=== PATIENT | male | born 1950 | race Caucasian/White ===

== ENCOUNTER 2016-06-08 13:24 | Inpatient (IN) | payer BC, MEDICARE ==
[~2016-06-08] VITALS: Ht 170.2 cm; Wt 81.3 kg
[2016-06-08] MEDS ORDERED: methylPREDNISolone INJ 125 MG/2 ML VIAL (J2930) IV ONE (13:45)
[2016-06-08] MEDS ORDERED: PROA1AER INFIL (13:55)
[2016-06-08] MEDS ORDERED: SPIR1CAP INH (13:55)
[2016-06-08] MEDS ORDERED: ADV500INH INH (13:55)
[2016-06-08 14:02] LABS: BASO % 0.5 % (0.0-1.0); EOS # 0.3 K/mm3 (0.0-0.50); EOS % 3.4 % (0.0-3.0); LARGE UNSTAINED CELL # 0.2 K/mm3 (0.0-0.4); LARGE UNSTAINED CELL % 2.3 % (0.0-4.0); LYMPH # 1.2 K/mm3 (1.5-4.5); LYMPH % 9.9 % (24.0-44.0); MEAN CORPUSCULAR HEMOGLOBIN 29.3 pg (27.0-33.0); MEAN CORPUSCULAR HGB CONC 32.9 g/dl (32.0-36.5); MEAN CORPUSCULAR VOLUME 89.1 fl (80.0-96.0); MONO # 0.8 K/mm3 (0.0-0.8); MONO % 7.4 % (0.0-5.0); NEUTROPHILS # 7.7 K/mm3 (1.8-7.7); NEUTROPHILS % 76.6 % (36.0-66.0); PLATELET COUNT, AUTOMATED 216 k/mm3 (150-450); RED CELL DISTRIBUTION WIDTH 12.8 % (11.5-14.5)
[2016-06-08] MEDS: IPRATROPIUM 0.5MG/ALBUTEROL 2.5MG INH SOL UD 3ML (DUONEB)(J7620) NEB PRN ×4 (14:07→15:04)
--- NOTE | 2016-06-08 14:11 | REP ---
Clinical: Dyspnea and cough. Comparison: 07/05/2007. Findings: Advanced COPD and emphysematous changes are again noted. Diffuse increased and ill-defined opacities throughout the left hemithorax represents a change from prior examination and concerning for multifocal pneumonia. No obvious effusion. No pneumothorax. Mediastinum and cardiac silhouette normal. Skeletal structures intact. Impression: 1. Advanced chronic COPD and emphysematous changes. 2. Superimposed ill-defined opacities involving the left hemithorax concerning for acute multifocal pneumonia. Correlation and follow-up is recommended to exclude the possibility of neoplasm. Signed by Edwar Rojas MD 06/08/2016 02:02 P
[2016-06-08 14:24] LABS: ANION GAP 7 MEQ/L (8-16); BLOOD UREA NITROGEN 14 MG/DL (7-18); CALCIUM LEVEL 9.2 MG/DL (8.8-10.2); CARBON DIOXIDE LEVEL 29 MEQ/L (21-32); CHLORIDE LEVEL 104 MEQ/L (98-107); CREATININE FOR GFR 0.93 MG/DL (0.70-1.30); GLOMERULAR FILTRATION RATE > 60.0 (>49); GLUCOSE, FASTING 114 MG/DL (80-110); POTASSIUM SERUM 3.7 MEQ/L (3.5-5.1); SODIUM LEVEL 140 MEQ/L (136-145)
[2016-06-08 14:34] LABS: ABG BASE EXCESS 2.4 (-2.0-2.0); ABG HCO3 23.7 MEQ/L (22.0-26.0); ABG PARTIAL PRESSURE CO2 27.7 mmHg (35.0-45.0); ABG STANDARD HCO3 26.6 MEQ/L (22.0-26.0); ABG TOTAL CO2 24.5 MEQ/L (23.0-31.0)
[2016-06-08] MEDS ORDERED: cefTRIAXone SOD 1 GM in D5W MINI-BAG PLUS 50 ML IV ONE (16:00)
[2016-06-08] MEDS ORDERED: AZITHROMYCIN INJ 500 MG, VIAL MATE ADAPTER 1 EACH in D5W 250 ML IV ONE (16:00)
--- NOTE | 2016-06-08 16:28 | REP ---
Clinical: Cough and dyspnea. Comparison: None. Findings: Advanced COPD and emphysematous changes with bronchiectasis is appreciated. Ill-defined areas of superimposed consolidation involving the left upper lobe suspected and correlation is recommended. Mediastinum demonstrates atherosclerotic changes to the thoracic aorta and coronary arteries without thoracic aortic aneurysm or cardiomegaly. Small hiatal hernia noted at the gastroesophageal junction. No obvious significant adenopathy. Surrounding musculoskeletal structures intact. Impression: Advanced COPD and emphysematous changes with superimposed left upper lobe infiltrate suggested. Correlation and follow up recommended. Signed by Edwar Rojas MD 06/08/2016 04:19 P
[2016-06-08] MEDS ORDERED: ACETAMINOPHEN TAB 650MG DOSE (2X325MG) PO PRN (18:30)
[2016-06-08] MEDS ORDERED: ALBUTEROL 90 MCG/ACT 8GM HFA INHALER INH PRN (18:45)
--- NOTE | 2016-06-08 19:33 | HPEPDOC ---
General Date of Admission Jun 08, 2016 at 16:17 Primary Care Physician: Jr Moore Collins Attending Physician: JEFFY TYSON MD Chief Complaint The patient is a 65-year-old male admitted with a reason for visit of CAP. Source: Patient Exam Limitations: No limitations Timing/Duration: Day(s) (5) Severity: Severe Associated Symptoms: Chest Pain, Cough, Shortness of breath History of Present Illness PRIMARY CARE PROVIDER: Dr. Greg Tinsley Credit Specialist that he follows with CHIEF COMPLAINT: shortness of breath HISTORY OF PRESENT ILLNESS: 65 yo M with a PMH of COPD on 2 L O2 24 hours, asthma, tobacco use disorder--quit smoking 1999, pneumothorax, hx of pneumonia, fracture of leg as child, diverticulosis, hemorrhoids, presents with a 5 day hx of progressively worsening that began on Monday. States he slept all day Monday. Monday, he stayed home because he felt really tired and couldn't catch his breath. On Monday, he checked his pulse with a device he has at home, and his pulse was high at 108. States he tried his home medications: continued O2 at home for 24 hours, advair diskus BID, spiriva capsule once daily, and an albuterol inhaler, but his SOB did not get any better, and in fact, it had gotten worse. In addition, on Monday, patient reports developing substernal 4-5/10 in severity with a dull ache/pressure like chest discomfort/pain/tightness which radiates to underneath his L side of his ribs to the L side of his back underneath the L scapula. States like it is an elephant "sitting on his chest." Denies any L sided arm pain, jaw pain, diaphoresis, dizziness. States he had stayed home Monday, took an advil, and went to bed. He denies fevers, chills, nausea, vomiting, diarrhea, constipation, abdominal pain, sore throat, runny nose, and sputum production. Admits to a chronic cough which has not gotten any worse than normal. Admits to PND, orthopnea, and SOB with general exertion. Sleeps with 2 pillows night. Admits to feeling cold all the time. States, due to the above symptoms, he has come in to the [facility] ED for further evaluation and treatment. In the [facility] ED, a workup was done which showed that the patient was tachypneic with a RR 24, pulse ox of 93% on 2 L NC, H&H was 13 and 39.6, glucose 114, CK- MB 6.11 (high), lactic acid 1.1 and WNL, troponin I was <0.02, TSH was 0.936 and WNL, and ABG showed pH 7.550/pCO2 27.7/p02 of 184 being consistent with respiratory alkalosis. Influenza A and B rapid antigen were negative. CXR whowed advanced chronic COPD and emphysematous changes, superimposed ill- defined opacities involving the L hemithorax concerning for acute multifocal pneumonia, no obvious effusion, and no pneumothorax. Chest CT without contrast showed advanced COPD and emphysematous changes with bronchiectasis is appreciated with superimposed QUAN infiltrate suggested. EKG showed sinus rhythm with ST depression in the lateral leads, Rate: 96, GA int: 165, QRS duration: 101, QTc: 397. Patient was administered 1 dose rocephin 1 gm IV, azithromycin 500 mg IV, solumedrol 125 mg, and 3 doses of duonebs q20 minutes PRN SOB. Patient reported some improvement but is still very SOB and gasping for air. Blood cx have been sent and are pending. ALLERGIES: NKDA HOME MEDICATIONS: Continuous O2 machine at home: 24 hours on 2 liters Advair Diskus BID (AM+PM) Spiriva: 1 capsule once a day Albuterol Inhaler PRN SOB/wheezing. PAST MEDICAL HISTORY: COPD on 2 L oxygen for 24 hours Hx of Pneumonia Asthma Tobacco Use Disorder previously--quit smoking 1999 Pneumothorax Fracture of leg as child Diverticulosis Hemorrhoids PAST SURGICAL HISTORY: Polypectomy 03/23 Colonoscopy March 2003 with diverticulosis, hemorroids, and polyps removed, pathology report: tubular adenomas. Upper GI Endoscopy SOCIAL HISTORY: Quit smoking 1999. Smoked 2 PPD x 40 years. 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 Healthcare Proxy: Loyda Rodriguez FAMILY HISTORY: Father: of CVA Mother: of bladder cancer, had Diabetes Siblings: 2 brothers, 1 , youngest brother: Pneumonia Younger brother: Diabetes 4 sisters: 2 , youngest sister from "some cancer", lost 1 sister to Bladder Cancer, other 2 sisters are healthy CODE STATUS: DNR/DNI REVIEW OF SYSTEMS: All ROS were negative except for that which is noted in the HPI above. PHYSICAL EXAMINATION: Initial ED Vitals: T:99.2 BP:148/82 (104) RR:24 P:97, O2 Saturation: 93% on 2L NC General: Pleasant elderly male lying in bed. +Acute respiratory distress, gasping for air. Speaks in full sentences. HEENT: Head: normocephalic, atraumatic. Eyes: Sclera are nonicteric. Nose: No external lesions, Lips intact. Neck: +use of accessory muscles, intercostal muscles, no thyromegaly Respiratory: +respiratory distress with use of accessory muscles, +tachypneic. Lungs clear to auscultation but diminished breath sounds bilaterally with no wheezes, rales, or rhonchi. Cardiovascular: regular rate and rhythm, with no murmurs, rubs or gallops Abdomen: soft, nontender, nondistended, no hepatosplenomegaly appreciated. Bowel sounds present. Extremities: no swelling in either lower extremity bilaterally Neurological: no focal neurologic deficits appreciated bilaterally Lymphatics: no cervical LAD bilaterally. Integumentary: skin free from rashes, lesions, abrasions Vascular: +2 pulses palpable and symmetrical in upper and lower extremities bilaterally LABORATORY DATA: Please see below. MICROBOIOLOGY: Please see below. ELECTROCARDIOGRAM: Please see in HPI. RADIOLOGY: Please see in HPI. ASSESSMENT: 65 yo M with PMH significant for COPD on continuous 24 hour 2L oxygen , asthma, hx of pneumonia, pneumothorax is presenting for progressively worsening SOB. Imaging consistent with QUAN infiltrate and probable community acquired pneumonia. Admitted for acute hypoxic respiratory failure, respiratory alkalosis, acute on chronic COPD exacerbation secondary to CAP. PLAN: Chronic Hypoxic Respiratory Failure/Respiratory Alkalosis/Acute on Chronic COPD Exacerbation secondary to Community Acquired Pneumonia: Will start azithromycin , rocephin, solumedrol 80 mg q6h, duonebs q4h, proventil q2 PRN SOB/wheezing. Will follow up blood cx and sputum cx when back. Follow up respiratory panel when available. Keep on continuous pulse oximetry. Monitor daily CBCs and BMPs. Substernal/Midsternal Chest Pain: Will admit to PCU. Will continue to cycle troponins q8h and repeat EKG tomorrow AM. Monitor Mg levels daily. COPD on 2 L oxygen for 24 hours: continue spiriva and advair diskus Hx of Pneumonia: has recent QUAN infiltrate on CT scan. Will treat with rocephin and azithromycin. Follow up when blood cx, sputum cx, and respiratory panel available. Asthma: continue home medications Tobacco Use Disorder previously--quit smoking 1999: no further intervention at this time. Pneumothorax: will continue to keep an eye on patient's respiratory status and will obtain CXRs to reevaluate when can. Fracture of leg as child: no symptoms reported today. Diverticulosis: will encourage oral hydration and will follow daily I's/O's and frequency of BMs. Hemorrhoids: will add stool softeners if necessary and encourage plenty of oral hydration. Continue home medications for other past medical problems. DVT ppx: Lovenox 40 mg sc Diet: COPD CODE STATUS: DNR/DNI Immunizations as per protocol. My preceptor for this patient encounter was Dr. Jeffy Tyson, and was physically present in the building during the encounter and was fully available. As needed, all aspects of the patient interview, examination, medical decision making process, and medical care plan development were reviewed and approved by the preceptor. Preceptor is aware and concurs with the plan as stated in the body of this note and will attest to such by his/her cosignature. Home Medications Scheduled Salmeterol/Fluticasone (Advair Diskus 500-50 Mcg/Dose) 28 Puff/Inhaler Aerp 1 PUFF INH BID (Reported) Tiotropium [place] Monohydrate (Spiriva Handihaler) 18 Mcg Cap 18 MCG INH DAILY (Reported) Scheduled PRN Albuterol Sulfate (Proair Hfa) 108 Mcg/Act Aer 2 PUFF INFIL Q4H PRN PRN SHORTNESS OF BREATH (Reported) Allergies Coded Allergies: No Known Drug Allergy (Verified Allergy, Unknown, 06/21/12) Vital Signs Please see above. Laboratory Data Labs 24H Laboratory Tests 2 06/08/16 13:45: Anion Gap 7L, White Blood Count 10.0, Red Blood Count 4.45, Hemoglobin 13.0L, Hematocrit 39.6L, Mean Corpuscular Volume 89.1, Mean Corpuscular Hemoglobin 29.3 , Mean Corpuscular Hemoglobin Concent 32.9, Red Cell Distribution Width 12.8, Platelet Count 216, Neutrophils (%) (Auto) 76.6H, Lymphocytes (%) (Auto) 9.9L, Monocytes (%) (Auto) 7.4H, Eosinophils (%) (Auto) 3.4H, Basophils (%) (Auto) 0.5 , Neutrophils # (Auto) 7.7, Lymphocytes # (Auto) 1.2L, Monocytes # (Auto) 0.8, Eosinophils # (Auto) 0.3, Basophils # (Auto) 0.0, Blood Urea Nitrogen 14, Creatinine 0.93, Sodium Level 140, Potassium Level 3.7, Chloride Level 104, Carbon Dioxide Level 29, Calcium Level 9.2, Total Creatine Kinase 36L, Creatine Kinase MB 2.2, Creatine Kinase MB Relative Index 6.11H, Glomerular Filtration Rate > 60.0, Lactic Acid Level 1.1, Large Unclassified Cells # 0.2, Large Unclassified Cells % 2.3, Thyroid Stimulating Hormone (TSH) 0.936, Troponin I < 0.02 06/08/16 14:00: Arterial Blood pH 7.550H, Arterial Blood Partial Pressure CO2 27.7L, Arterial Blood Partial Pressure O2 184.0H, Arterial Blood Total CO2 24.5, Arterial Blood HCO3 23.7, Arterial Blood Base Excess 2.4H, Arterial Blood Oxygen Saturation 99.6H, Arterial Blood Gas Liter Flow 2, Arterial Blood Gas Puncture Site LT RADIAL, Blood Gas Bicarbonate Standard 26.6H CBC/BMP Laboratory Tests 06/08/16 13:45 Calcium Level 9.2, Total Creatine Kinase 36 L, Red Blood Count 4.45, Mean Corpuscular Volume 89.1, Mean Corpuscular Hemoglobin 29.3, Mean Corpuscular Hemoglobin Concent 32.9, Red Cell Distribution Width 12.8, Neutrophils (%) (Auto ) 76.6 H, Lymphocytes (%) (Auto) 9.9 L, Monocytes (%) (Auto) 7.4 H, Eosinophils (%) (Auto) 3.4 H, Basophils (%) (Auto) 0.5, Neutrophils # (Auto) 7.7, Lymphocytes # (Auto) 1.2 L, Monocytes # (Auto) 0.8, Eosinophils # (Auto) 0.3, Basophils # (Auto) 0.0 Microbiology Microbiology 06/08/16 Blood Culture, Received Pending 06/08/16 Blood Culture, Received Pending 06/08/16 Influenza Virus Type A Antigen - Final, Complete 06/08/16 Influenza Virus Type B Antigen - Final, Complete Plan / VTE VTE Prophylaxis Ordered?: Yes (lovenox) Plan IVF: Initiate JEFFY JACKSON-1 Jun 08, 2016 19:33
[2016-06-08] MEDS: IPRATROPIUM 0.5MG/ALBUTEROL 2.5MG INH SOL UD 3ML (DUONEB)(J7620) NEB SCH ×2 (20:16→23:38)
[2016-06-08] MEDS: ADVAIR DISKUS 500/50 INH PWD INH SCH (20:44)
[2016-06-08] MEDS: methylPREDNISolone INJ 125 MG/2 ML VIAL (J2930) IV SCH (20:50)
[2016-06-09] VITALS: BP 118/57
[2016-06-09] MEDS: methylPREDNISolone INJ 125 MG/2 ML VIAL (J2930) IV SCH ×4 (02:12→19:43)
[2016-06-09] MEDS: IPRATROPIUM 0.5MG/ALBUTEROL 2.5MG INH SOL UD 3ML (DUONEB)(J7620) NEB SCH ×5 (03:19→20:00)
[2016-06-09 04:00] VITALS: BP 113/56
[2016-06-09] MEDS: cefTRIAXone SOD 1 GM in D5W MINI-BAG PLUS 50 ML IV SCH ×2 (04:01→16:29)
[2016-06-09] MEDS: ADVAIR DISKUS 500/50 INH PWD INH SCH ×2 (07:52→20:27)
[2016-06-09 08:00] VITALS: BP 128/71
[2016-06-09] MEDS ORDERED: TIOTROPIUM INHALER/CAPSULE (SPIRIVA) INH SCH (08:00)
[2016-06-09] MEDS: ENOXAPARIN 40 MG/0.4 ML SYRINGE (J1650) SC SCH (08:52)
[2016-06-09] MEDS ORDERED: AZITHROMYCIN INJ 500 MG, VIAL MATE ADAPTER 1 EACH in D5W 250 ML IV SCH ×2 (09:00→17:00)
[2016-06-09 09:01] LABS: ANION GAP 10 MEQ/L (8-16); BLOOD UREA NITROGEN 16 MG/DL (7-18); CARBON DIOXIDE LEVEL 24 MEQ/L (21-32); CHLORIDE LEVEL 104 MEQ/L (98-107); CREATININE FOR GFR 1.18 MG/DL (0.70-1.30); GLOMERULAR FILTRATION RATE > 60.0 (>49); GLUCOSE, FASTING 168 MG/DL (80-110); MAGNESIUM LEVEL 2.3 MG/DL (1.8-2.4); SODIUM LEVEL 138 MEQ/L (136-145)
[2016-06-09 09:43] LABS: BASO % 0.1 % (0.0-1.0); EOS # 0.1 K/mm3 (0.0-0.50); EOS % 1.1 % (0.0-3.0); LARGE UNSTAINED CELL # 0.1 K/mm3 (0.0-0.4); LARGE UNSTAINED CELL % 0.4 % (0.0-4.0); LYMPH # 0.6 K/mm3 (1.5-4.5); LYMPH % 4.6 % (24.0-44.0); MEAN CORPUSCULAR HEMOGLOBIN 29.5 pg (27.0-33.0); MEAN CORPUSCULAR HGB CONC 33.9 g/dl (32.0-36.5); MEAN CORPUSCULAR VOLUME 87.1 fl (80.0-96.0); MONO # 0.2 K/mm3 (0.0-0.8); MONO % 1.9 % (0.0-5.0); NEUTROPHILS # 11.3 K/mm3 (1.8-7.7); NEUTROPHILS % 91.8 % (36.0-66.0); PLATELET COUNT, AUTOMATED 245 k/mm3 (150-450); RED CELL DISTRIBUTION WIDTH 12.5 % (11.5-14.5); WHITE BLOOD COUNT 12.3 K/mm3 (4.0-10.0)
--- NOTE | 2016-06-09 10:29 | IPNPDOC ---
Subjective Date Seen The patient was seen on 06/09/16. Subjective Chief Complaint/HPI 65 yo M seen and examined at bedside. Still having same amount of SOB but is a bit improved from prior. Admits to a worsening cough with sputum production now. Otherwise, no other reported issues. Events since last encounter Patient admits that he slept okay overnight except for the interruptions as per staff for lab draws and medications. No other acute events reported overnight. General: Reports: Fatigue, Denies: Chills, Night Sweats Constitutional: Reports: Fatigue, Weakness, Denies: Chills, Fever ENT: Denies: Head Aches, Sore Throat Pulmonary: Reports: Cough (worsening cough productive of sputum), Dyspnea, Other Symptoms (+SOB on exertion) Cardiovascular: Reports: Orthopnea, Denies: Chest Pain, Edema, Palpitations Gastrointestinal: Denies: Abdominal Pain, Constipation, Diarrhea, Hematochezia , Nausea, Vomiting Genitourinary: Denies: Dysuria, Frequency, Hematuria Endocrine: Reports: Cold Intolerance Neurological: Reports: Weakness Psych: Reports: Mood Normal (just seems fatigued) Objective Physical Examination General Exam: Positive: Alert, Cooperative, Moderate Distress Eye Exam: Positive: Conjunctiva & lids normal (sclera nonicteric) ENT Exam: Positive: Atraumatic Neck Exam: Positive: Supple, Negative: JVD, Lymphadenopathy, thyromegaly Chest Exam: Positive: Clear to auscultation, Diminished, Other (decreased air entry throughout all lung coello), Negative: Wheezing Heart Exam: Positive: Normal S1, Normal S2, Rate Normal, Regular Rhythm, Negative: Murmurs Abdomen Exam: Positive: Normal bowel sounds, Soft, Negative: Hepatospenomegaly, Mass, Tenderness Extremity Exam: Positive: Normal pulses, Negative: Clubbing, Cyanosis, Edema, Tenderness Skin Exam: Positive: Nl turgor and temperature, Negative: Breakdown, Lesion, Rash Neuro Exam: Positive: Normal Speech, Normal Tone Psych Exam: Positive: Memory Intact, Mental status NL, Mood NL, Oriented x 3 Assessment /Plan Assessment Chronic Hypoxic Respiratory Failure/Respiratory Alkalosis/Acute on Chronic COPD Exacerbation secondary to Community Acquired Pneumonia: Will start azithromycin , rocephin, solumedrol 80 mg q6h, duonebs q4h, proventil q2 PRN SOB/wheezing. Will follow up blood cx and sputum cx when back. Follow up respiratory panel when available. Keep on continuous pulse oximetry. Monitor daily CBCs and BMPs. Problems (1) Acute chronic obstructive pulmonary disease with respiratory distress Status: Acute Response to Treatment: Controlled Discussed With: Patient Problem Specific Plan: Monitor Clinically, Repeat Labs, Repeat Tests Problem Text: Continue azithromycin, rocephin, solumedrol 80 mg q6h, duonebs q4h, proventil q2 PRN SOB/wheezing. Titrate to O2 sats between 90-92%. Will follow up blood cx and sputum cx when back. Follow up respiratory panel when available. Keep on continuous pulse oximetry. Monitor daily CBCs and BMPs. Have added incentive spirometry and encourage aggressive pulmonary toilet. Will add acapella. (2) Chest pain Status: Resolved Discussed With: Patient Problem Specific Plan: Monitor Clinically, Repeat Labs Problem Text: Have admitted to telemetry on PCU. Will continue to cycle troponins q8h and repeat EKG today. Monitor Mg levels daily. (3) COPD (chronic obstructive pulmonary disease) Status: Acute Response to Treatment: Progressing Discussed With: Patient Problem Specific Plan: Monitor Clinically, Repeat Labs Problem Text: COPD on 2 L oxygen for 24 hours: continue advair diskus. Have held spiriva for now. (4) Asthma Status: Chronic Response to Treatment: Controlled Problem Specific Plan: Monitor Clinically Problem Text: Continue home medications (5) History of pneumonia, recurrent Status: Acute Response to Treatment: Progressing Discussed With: Patient Problem Specific Plan: Monitor Clinically, Repeat Labs Problem Text: Has recent QUAN infiltrate on CT scan. Will treat with rocephin and azithromycin. Follow up when blood cx, sputum cx, and respiratory panel available. (6) Diverticulosis Status: Chronic Response to Treatment: Stable Discussed With: Patient Problem Specific Plan: Monitor Clinically Problem Text: Will encourage oral hydration and will follow daily I's/O's and frequency of BMs. (7) Hemorrhoids Status: Acute Response to Treatment: Stable Discussed With: Patient Problem Specific Plan: Monitor Clinically Problem Text: Will add stool softeners if necessary and encourage plenty of oral hydration. Plan/VTE VTE Prophylaxis Ordered?: Yes (lovenox 40 mg sc daily) Plan IVF: Initiate Diet: Continue Current (COPD diet) Activity: Continue Current Therapy: PT Medications: Other Med: (Continue current medications) Respiratory: Other Respiratory Diagnostics: Check Labs, Obtain Cultures, Repeat EKG (continue 2 Liters home dose) Anticipated Discharge: Home Disposition Home after patient improves and is stable. Continue home medications for other past medical problems. DVT ppx: Lovenox 40 mg sc Diet: COPD CODE STATUS: DNR/DNI Immunizations as per protocol. VS, I&O, 24H, Fishbone Vital Signs/I&O Vital Signs Date Time Temp Pulse Resp B/P Pulse Ox O2 Delivery O2 Flow Rate FiO2 06/09/16 08:00 97.4 85 20 128/71 96 Nasal Cannula 2.0 06/08/16 20:20 97 I&O- Last 24 Hours up to 6 AM 06/09/16 05:59 Intake Total 300 ml Balance 300 ml Laboratory Data 24H LABS Laboratory Tests 2 06/08/16 13:45: Anion Gap 7L, White Blood Count 10.0, Red Blood Count 4.45, Hemoglobin 13.0L, Hematocrit 39.6L, Mean Corpuscular Volume 89.1, Mean Corpuscular Hemoglobin 29.3 , Mean Corpuscular Hemoglobin Concent 32.9, Red Cell Distribution Width 12.8, Platelet Count 216, Neutrophils (%) (Auto) 76.6H, Lymphocytes (%) (Auto) 9.9L, Monocytes (%) (Auto) 7.4H, Eosinophils (%) (Auto) 3.4H, Basophils (%) (Auto) 0.5 , Neutrophils # (Auto) 7.7, Lymphocytes # (Auto) 1.2L, Monocytes # (Auto) 0.8, Eosinophils # (Auto) 0.3, Basophils # (Auto) 0.0, Blood Urea Nitrogen 14, Creatinine 0.93, Sodium Level 140, Potassium Level 3.7, Chloride Level 104, Carbon Dioxide Level 29, Calcium Level 9.2, Total Creatine Kinase 36L, Creatine Kinase MB 2.2, Creatine Kinase MB Relative Index 6.11H, Glomerular Filtration Rate > 60.0, Lactic Acid Level 1.1, Large Unclassified Cells # 0.2, Large Unclassified Cells % 2.3, Thyroid Stimulating Hormone (TSH) 0.936, Troponin I < 0.02 06/08/16 14:00: Arterial Blood pH 7.550H, Arterial Blood Partial Pressure CO2 27.7L, Arterial Blood Partial Pressure O2 184.0H, Arterial Blood Total CO2 24.5, Arterial Blood HCO3 23.7, Arterial Blood Base Excess 2.4H, Arterial Blood Oxygen Saturation 99.6H, Arterial Blood Gas Liter Flow 2, Arterial Blood Gas Puncture Site LT RADIAL, Blood Gas Bicarbonate Standard 26.6H 06/09/16 08:19: Anion Gap 10, Blood Urea Nitrogen 16, Creatinine 1.18, Sodium Level 138, Potassium Level 4.0, Chloride Level 104, Carbon Dioxide Level 24, Calcium Level 9.0, Glomerular Filtration Rate > 60.0, Magnesium Level 2.3 06/09/16 09:34: White Blood Count 12.3H, Red Blood Count 4.32, Hemoglobin 12.8L, Hematocrit 37.6L, Mean Corpuscular Volume 87.1, Mean Corpuscular Hemoglobin 29.5, Mean Corpuscular Hemoglobin Concent 33.9, Red Cell Distribution Width 12.5, Platelet Count 245, Neutrophils (%) (Auto) 91.8H, Lymphocytes (%) (Auto) 4.6L, Monocytes (%) (Auto) 1.9, Eosinophils (%) (Auto) 1.1, Basophils (%) (Auto) 0.1, Neutrophils # (Auto) 11.3H, Lymphocytes # (Auto) 0.6L, Monocytes # (Auto) 0.2, Eosinophils # (Auto) 0.1, Basophils # (Auto) 0.0, Large Unclassified Cells # 0.1 , Large Unclassified Cells % 0.4 CBC/BMP Laboratory Tests 06/08/16 13:45 Calcium Level 9.2, Total Creatine Kinase 36 L, Red Blood Count 4.45, Mean Corpuscular Volume 89.1, Mean Corpuscular Hemoglobin 29.3, Mean Corpuscular Hemoglobin Concent 32.9, Red Cell Distribution Width 12.8, Neutrophils (%) (Auto ) 76.6 H, Lymphocytes (%) (Auto) 9.9 L, Monocytes (%) (Auto) 7.4 H, Eosinophils (%) (Auto) 3.4 H, Basophils (%) (Auto) 0.5, Neutrophils # (Auto) 7.7, Lymphocytes # (Auto) 1.2 L, Monocytes # (Auto) 0.8, Eosinophils # (Auto) 0.3, Basophils # (Auto) 0.0 06/09/16 08:19 Calcium Level 9.0 06/09/16 09:34 Red Blood Count 4.32, Mean Corpuscular Volume 87.1, Mean Corpuscular Hemoglobin 29.5, Mean Corpuscular Hemoglobin Concent 33.9, Red Cell Distribution Width 12.5 , Neutrophils (%) (Auto) 91.8 H, Lymphocytes (%) (Auto) 4.6 L, Monocytes (%) ( Auto) 1.9, Eosinophils (%) (Auto) 1.1, Basophils (%) (Auto) 0.1, Neutrophils # ( Auto) 11.3 H, Lymphocytes # (Auto) 0.6 L, Monocytes # (Auto) 0.2, Eosinophils # (Auto) 0.1, Basophils # (Auto) 0.0 Microbiology Microbiology 06/08/16 Blood Culture, Received Pending 06/08/16 Blood Culture, Received Pending 06/08/16 Respiratory Virus Panel (PCR) (SOPHIA) - Final, Complete 06/08/16 MRSA Screen, Received Pending 06/08/16 Influenza Virus Type A Antigen - Final, Complete 06/08/16 Influenza Virus Type B Antigen - Final, Complete 06/08/16 Gram Stain, Received Pending 06/08/16 Sputum Culture, Received Pending GME ATTESTATION GME ATTESTATION My preceptor for this patient encounter was Dr. Froy Lomas, and was physically present in the building during the encounter and was fully available. As needed , all aspects of the patient interview, examination, medical decision making process, and medical care plan development were reviewed and approved by the preceptor. Preceptor is aware and concurs with the plan as stated in the body of this note and will attest to such by his/her cosignature. FARZANA JACKSON OGME-1 Jun 09, 2016 10:29
[2016-06-09 12:00] VITALS: BP 140/63
[2016-06-09 15:00] VITALS: BP 141/65
[2016-06-09] MEDS ORDERED: cefTRIAXone SOD 1 GM in D5W MINI-BAG PLUS 50 ML IV SCH (16:00)
[2016-06-09] MEDS: AZITHROMYCIN INJ 500 MG, VIAL MATE ADAPTER 1 EACH in D5W 250 ML IV SCH (17:18)
[2016-06-09 20:09] VITALS: BP 137/63
--- NOTE | 2016-06-09 20:50 | ECGEPIP ---
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
--- NOTE | 2016-06-09 22:11 | ECGEPIP ---
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
[2016-06-10] VITALS (7 sets, daily range): BP systolic 123–153; BP diastolic 58–79
[2016-06-10] MEDS ORDERED: SLF 3 ML SYR IV PRN (01:00)
[2016-06-10] MEDS: IPRATROPIUM 0.5MG/ALBUTEROL 2.5MG INH SOL UD 3ML (DUONEB)(J7620) NEB SCH ×7 (01:57→23:32)
[2016-06-10] MEDS: methylPREDNISolone INJ 125 MG/2 ML VIAL (J2930) IV SCH ×3 (02:52→20:17)
[2016-06-10] MEDS: cefTRIAXone SOD 1 GM in D5W MINI-BAG PLUS 50 ML IV SCH ×2 (04:25→16:40)
[2016-06-10 05:17] LABS: BASO % 0.1 % (0.0-1.0); EOS % 0.4 % (0.0-3.0); LARGE UNSTAINED CELL # 0.1 K/mm3 (0.0-0.4); LARGE UNSTAINED CELL % 0.3 % (0.0-4.0); LYMPH # 0.6 K/mm3 (1.5-4.5); LYMPH % 3.7 % (24.0-44.0); MEAN CORPUSCULAR HEMOGLOBIN 29.1 pg (27.0-33.0); MEAN CORPUSCULAR HGB CONC 33.1 g/dl (32.0-36.5); MONO # 0.4 K/mm3 (0.0-0.8); MONO % 2.9 % (0.0-5.0); NEUTROPHILS # 13.8 K/mm3 (1.8-7.7); NEUTROPHILS % 92.7 % (36.0-66.0); PLATELET COUNT, AUTOMATED 261 k/mm3 (150-450); RED CELL DISTRIBUTION WIDTH 12.6 % (11.5-14.5); WHITE BLOOD COUNT 14.9 K/mm3 (4.0-10.0)
[2016-06-10 05:28] LABS: ANION GAP 8 MEQ/L (8-16); BLOOD UREA NITROGEN 20 MG/DL (7-18); CARBON DIOXIDE LEVEL 26 MEQ/L (21-32); CHLORIDE LEVEL 107 MEQ/L (98-107); CREATININE FOR GFR 0.86 MG/DL (0.70-1.30); GLOMERULAR FILTRATION RATE > 60.0 (>49); GLUCOSE, FASTING 184 MG/DL (80-110); MAGNESIUM LEVEL 2.2 MG/DL (1.8-2.4); POTASSIUM SERUM 4.1 MEQ/L (3.5-5.1); SODIUM LEVEL 141 MEQ/L (136-145)
[2016-06-10] MEDS: SLF 3 ML SYR IV SCH ×3 (05:32→20:18)
[2016-06-10] MEDS: ADVAIR DISKUS 500/50 INH PWD INH SCH ×2 (07:20→20:11)
[2016-06-10] MEDS: ENOXAPARIN 40 MG/0.4 ML SYRINGE (J1650) SC SCH (09:37)
[2016-06-10] MEDS ORDERED: AZITHROMYCIN 250 MG TAB PO SCH (16:47)
[2016-06-10] MEDS: AZITHROMYCIN INJ 500 MG, VIAL MATE ADAPTER 1 EACH in D5W 250 ML IV SCH (17:52)
--- NOTE | 2016-06-10 22:10 | IPNPDOC ---
Subjective Date Seen The patient was seen on 06/10/16. Subjective Chief Complaint/HPI The patient is a 65-year-old male admitted with a reason for visit of CAP. Patient seen and examined at bedside. Admits to constipation, fatigue, and weakness. States he feels very tired and winded. States he is doing incentive spirometer. And he is also doing his accapella which is helping to clear his secretions very well. Events since last encounter No acute events reported overnight. General: Reports: Fatigue, Denies: Chills Constitutional: Reports: Fatigue, Weakness, Denies: Chills, Fever ENT: Denies: Head Aches Skin: Denies: Rash Pulmonary: Reports: Cough, Dyspnea Cardiovascular: Denies: Chest Pain, Palpitations Gastrointestinal: Reports: Constipation, Denies: Abdominal Pain, Diarrhea, Nausea, Vomiting Genitourinary: Denies: Dysuria, Hematuria Endocrine: Denies: Cold Intolerance, Heat Intolerance Musculoskeletal: Denies: Joint Pain Neurological: Reports: Weakness Psych: Reports: Mood Normal Objective Physical Examination General Exam: Positive: Alert, Cooperative, Moderate Distress Eye Exam: Positive: Conjunctiva & lids normal (sclera nonicteric) ENT Exam: Positive: Atraumatic Neck Exam: Positive: Supple, Negative: JVD, Lymphadenopathy, thyromegaly Chest Exam: Positive: Clear to auscultation, Other (improved air entry throughout all lung coello from prior.), Negative: Wheezing Heart Exam: Positive: Normal S1, Normal S2, Rate Normal, Regular Rhythm, Negative: Murmurs Abdomen Exam: Positive: Normal bowel sounds, Soft, Negative: Hepatospenomegaly, Mass, Tenderness Extremity Exam: Positive: Normal pulses, Negative: Clubbing, Cyanosis, Edema, Tenderness Skin Exam: Positive: Nl turgor and temperature, Negative: Breakdown, Lesion, Rash Neuro Exam: Positive: Normal Speech, Normal Tone Psych Exam: Positive: Memory Intact, Mental status NL, Mood NL, Oriented x 3 Assessment /Plan Assessment 65 yo M presenting for acute on chronic COPD exacerbation secondary to CAP. Problems (1) Acute chronic obstructive pulmonary disease with respiratory distress Status: Acute Response to Treatment: Controlled Discussed With: Patient Problem Specific Plan: Monitor Clinically, Repeat Labs, Repeat Tests Problem Text: Continue azithromycin, rocephin, solumedrol tapered to 80 mg q12h IV, duonebs q4h, proventil q2 PRN SOB/wheezing. Titrate to O2 sats between 90-92%. Resp panel negative. MRSA screen negative. Blood cx show NGTD x 24 hours. Sputum cx show many WBCs, few epithelial cells, few gram (+) cocci in pairs, chains, and clusters, and few gram (+) rods. Await sensitivities. Keep on continuous pulse oximetry. Monitor daily CBCs and BMPs. Have added incentive spirometry, accapella, and aggressive pulmonary toilet. (2) Chest pain Status: Resolved Discussed With: Patient Problem Specific Plan: Monitor Clinically, Repeat Labs Problem Text: Have admitted to telemetry on PCU. Troponins (-) x 3. Repeat EKG was unremarkable and showed sinus rhythm. Monitor Mg levels daily. (3) COPD (chronic obstructive pulmonary disease) Status: Acute Response to Treatment: Progressing Discussed With: Patient Problem Specific Plan: Monitor Clinically, Repeat Labs Problem Text: COPD on 2 L oxygen for 24 hours: continue advair diskus. Have held spiriva for now. (4) Asthma Status: Chronic Response to Treatment: Controlled Problem Specific Plan: Monitor Clinically Problem Text: Continue home medications. (5) History of pneumonia, recurrent Status: Acute Response to Treatment: Progressing Discussed With: Patient Problem Specific Plan: Monitor Clinically, Repeat Labs Problem Text: Has recent QUAN infiltrate on CT scan. Will treat with rocephin and azithromycin. Sputum cx as above. Await sensitivities. (6) Diverticulosis Status: Chronic Response to Treatment: Stable Discussed With: Patient Problem Specific Plan: Monitor Clinically Problem Text: Will encourage oral hydration and will follow daily I's/O's and frequency of BMs. Patient constipated. Have added Senokot S and milk of magnesia to help. (7) Hemorrhoids Status: Acute Response to Treatment: Stable Discussed With: Patient Problem Specific Plan: Monitor Clinically Problem Text: Have added laxative and stool softeners. Encourage plenty of oral hydration. Plan/VTE VTE Prophylaxis Ordered?: Yes (lovenox 40 mg sc daily) Plan IVF: Initiate Diet: Continue Current (COPD diet) Activity: Continue Current Therapy: PT Medications: Other Med: (Continue current medications) Respiratory: Other Respiratory Diagnostics: Check Labs, Obtain Cultures Anticipated Discharge: Home VS, I&O, 24H, Fishbone Vital Signs/I&O Vital Signs Date Time Temp Pulse Resp B/P Pulse Ox O2 Delivery O2 Flow Rate FiO2 06/10/16 20:00 Nasal Cannula 3.0 06/10/16 20:00 98.9 92 20 147/76 95 06/08/16 20:20 97 I&O- Last 24 Hours up to 6 AM 06/10/16 06:00 Intake Total 1025 ml Output Total 650 ml Balance 375 ml Laboratory Data 24H LABS Laboratory Tests 2 06/10/16 04:54: Anion Gap 8, White Blood Count 14.9H, Red Blood Count 3.97L, Hemoglobin 11.6L, Hematocrit 34.9L, Mean Corpuscular Volume 88.0, Mean Corpuscular Hemoglobin 29.1 , Mean Corpuscular Hemoglobin Concent 33.1, Red Cell Distribution Width 12.6, Platelet Count 261, Neutrophils (%) (Auto) 92.7H, Lymphocytes (%) (Auto) 3.7L, Monocytes (%) (Auto) 2.9, Eosinophils (%) (Auto) 0.4, Basophils (%) (Auto) 0.1, Neutrophils # (Auto) 13.8H, Lymphocytes # (Auto) 0.6L, Monocytes # (Auto) 0.4, Eosinophils # (Auto) 0.0, Basophils # (Auto) 0.0, Blood Urea Nitrogen 20H, Creatinine 0.86, Sodium Level 141, Potassium Level 4.1, Chloride Level 107, Carbon Dioxide Level 26, Calcium Level 8.0L, Glomerular Filtration Rate > 60.0, Large Unclassified Cells # 0.1, Large Unclassified Cells % 0.3, Magnesium Level 2.2 CBC/BMP Laboratory Tests 06/10/16 04:54 Calcium Level 8.0 L, Red Blood Count 3.97 L, Mean Corpuscular Volume 88.0, Mean Corpuscular Hemoglobin 29.1, Mean Corpuscular Hemoglobin Concent 33.1, Red Cell Distribution Width 12.6, Neutrophils (%) (Auto) 92.7 H, Lymphocytes (%) (Auto) 3.7 L, Monocytes (%) (Auto) 2.9, Eosinophils (%) (Auto) 0.4, Basophils (%) (Auto ) 0.1, Neutrophils # (Auto) 13.8 H, Lymphocytes # (Auto) 0.6 L, Monocytes # ( Auto) 0.4, Eosinophils # (Auto) 0.0, Basophils # (Auto) 0.0 Microbiology Microbiology 06/08/16 Blood Culture - Preliminary, Resulted No Growth after 48 hours. All Specime... 06/08/16 Blood Culture - Preliminary, Resulted No Growth after 48 hours. All Specime... 06/08/16 Respiratory Virus Panel (PCR) ([facility]) - Final, Complete 06/08/16 MRSA Screen - Final, Complete 06/08/16 Influenza Virus Type A Antigen - Final, Complete 06/08/16 Influenza Virus Type B Antigen - Final, Complete 06/08/16 Gram Stain - Final, Resulted 06/08/16 Sputum Culture, Resulted Pending GME ATTESTATION GME ATTESTATION My preceptor for this patient encounter was Dr. Froy Lomas, and was physically present in the building during the encounter and was fully available. As needed , all aspects of the patient interview, examination, medical decision making process, and medical care plan development were reviewed and approved by the preceptor. Preceptor is aware and concurs with the plan as stated in the body of this note and will attest to such by his/her cosignature. FARZANA JACKSON OGME-1 Jun 10, 2016 22:10
[2016-06-10] MEDS ORDERED: MOM 30ML SUSPENSION UDC PO PRN (22:15)
[2016-06-10] MEDS: SENOKOT S TAB PO SCH (22:21)
[2016-06-11] VITALS (7 sets, daily range): BP systolic 113–154; BP diastolic 50–72
[2016-06-11] MEDS: IPRATROPIUM 0.5MG/ALBUTEROL 2.5MG INH SOL UD 3ML (DUONEB)(J7620) NEB SCH ×6 (03:22→23:49)
[2016-06-11] MEDS: cefTRIAXone SOD 1 GM in D5W MINI-BAG PLUS 50 ML IV SCH ×2 (04:40→16:35)
[2016-06-11] MEDS: SLF 3 ML SYR IV SCH ×3 (04:40→20:07)
[2016-06-11 05:58] LABS: BASO % 0.1 % (0.0-1.0); EOS % 0.3 % (0.0-3.0); LARGE UNSTAINED CELL # 0.1 K/mm3 (0.0-0.4); LARGE UNSTAINED CELL % 0.6 % (0.0-4.0); LYMPH # 0.6 K/mm3 (1.5-4.5); LYMPH % 4.8 % (24.0-44.0); MEAN CORPUSCULAR HEMOGLOBIN 29.2 pg (27.0-33.0); MEAN CORPUSCULAR HGB CONC 32.6 g/dl (32.0-36.5); MEAN CORPUSCULAR VOLUME 89.6 fl (80.0-96.0); MONO # 0.4 K/mm3 (0.0-0.8); NEUTROPHILS # 9.9 K/mm3 (1.8-7.7); NEUTROPHILS % 90.2 % (36.0-66.0); PLATELET COUNT, AUTOMATED 286 k/mm3 (150-450); RED CELL DISTRIBUTION WIDTH 12.7 % (11.5-14.5)
[2016-06-11 06:28] LABS: ANION GAP 5 MEQ/L (8-16); BLOOD UREA NITROGEN 25 MG/DL (7-18); CALCIUM LEVEL 8.4 MG/DL (8.8-10.2); CARBON DIOXIDE LEVEL 30 MEQ/L (21-32); CHLORIDE LEVEL 108 MEQ/L (98-107); CREATININE FOR GFR 0.88 MG/DL (0.70-1.30); GLOMERULAR FILTRATION RATE > 60.0 (>49); GLUCOSE, FASTING 180 MG/DL (80-110); MAGNESIUM LEVEL 2.4 MG/DL (1.8-2.4); POTASSIUM SERUM 4.3 MEQ/L (3.5-5.1); SODIUM LEVEL 143 MEQ/L (136-145)
[2016-06-11] MEDS ORDERED: methylPREDNISolone INJ 125 MG/2 ML VIAL (J2930) IV ONE (07:45)
[2016-06-11] MEDS: SENOKOT S TAB PO SCH ×2 (08:34→20:07)
[2016-06-11] MEDS: ENOXAPARIN 40 MG/0.4 ML SYRINGE (J1650) SC SCH (08:36)
[2016-06-11] MEDS: ADVAIR DISKUS 500/50 INH PWD INH SCH ×2 (09:54→19:28)
--- NOTE | 2016-06-11 13:28 | REP ---
Clinical: Shortness of breath. Technique: PA and lateral. Comparison: 06/08/2016. Findings: Diffuse chronic changes and advance COPD/emphysematous disease. Improved aeration to the left hemithorax noted with subtle apical and lower lobe atelectasis suggested. No obvious effusion. No pneumothorax. Cardiac silhouette stable. Skeletal structures intact. Impression: Diffuse chronic changes. Improved aeration to the left lung suggested. Signed by Edwar Rojas MD 06/11/2016 01:19 P
[2016-06-11] MEDS: FLUCONAZOLE 100 MG TAB PO SCH (14:32)
[2016-06-11] MEDS: AZITHROMYCIN 250 MG TAB PO SCH (16:35)
[2016-06-11] MEDS ORDERED: methylPREDNISolone INJ 40 MG/1 ML VIAL (J2920) IV ONE (20:00)
--- NOTE | 2016-06-11 21:51 | IPNPDOC ---
Subjective Date Seen The patient was seen on 06/11/16. Subjective Chief Complaint/HPI The patient is a 65-year-old male admitted with a reason for visit of CAP. Patient seen and examined at bedside. Admits to SOB that is improving since he was admitted, however, still feels SOB. Complains of difficulty with SOB on exertion and reports that it is difficult to walk normally. Is expressing concern that if his respiratory status does not get back to his baseline, he may not be able to go back to work, and needs to do planning ahead of time. Asking whether he will get better or not. States he is impatient with treatment and therapeutic response. He wants to feel better faster in other words. States SOB still present. Is feeling tired. Events since last encounter No acute events reported overnight. General: Denies: Chills Constitutional: Reports: Fatigue, Weakness, Denies: Chills, Fever ENT: Denies: Head Aches Skin: Denies: Rash Pulmonary: Reports: Cough, Dyspnea Cardiovascular: Reports: Edema, Denies: Chest Pain, Lt Headedness, Palpitations Gastrointestinal: Denies: Abdominal Pain, Diarrhea, Hematochezia, Nausea, Vomiting Genitourinary: Denies: Dysuria, Hematuria Endocrine: Denies: Heat Intolerance Musculoskeletal: Denies: Joint Pain Neurological: Reports: Weakness Psych: Reports: Anxiety, Depression Objective Physical Examination General Exam: Positive: Alert, Cooperative, Moderate Distress Eye Exam: Positive: Conjunctiva & lids normal (sclera nonicteric) ENT Exam: Positive: Atraumatic Neck Exam: Positive: Supple, Negative: JVD, Lymphadenopathy, thyromegaly Chest Exam: Positive: Clear to auscultation, Other (improved air entry throughout all lung coello from prior.), Negative: Wheezing Heart Exam: Positive: Normal S1, Normal S2, Rate Normal, Regular Rhythm, Negative: Murmurs Abdomen Exam: Positive: Normal bowel sounds, Soft, Negative: Hepatospenomegaly, Mass, Tenderness Extremity Exam: Positive: Normal pulses, Negative: Clubbing, Cyanosis, Edema, Tenderness Skin Exam: Positive: Nl turgor and temperature, Negative: Breakdown, Lesion, Rash Neuro Exam: Positive: Normal Speech, Normal Tone Psych Exam: Positive: Memory Intact, Mental status NL, Mood NL, Oriented x 3 Assessment /Plan Assessment 65 yo [place] M with Chronic Hypoxic Respiratory Failure/Respiratory Alkalosis/ Acute on Chronic COPD Exacerbation secondary to Community Acquired Pneumonia Problems (1) Acute chronic obstructive pulmonary disease with respiratory distress Status: Acute Response to Treatment: Controlled Discussed With: Patient Problem Specific Plan: Monitor Clinically, Repeat Labs, Repeat Tests Problem Text: Continue azithromycin, rocephin, solumedrol tapered from 80 mg q12h IV to 60 mg once this AM, 40 mg IV this evening, and then 40 mg PO prednisone daily. Continue breathing tx with duonebs q4h, proventil q2 PRN SOB/ wheezing. Titrate to O2 sats between 90-92%. Resp panel negative. MRSA screen negative. Blood cx show NGTD x 72 hours. Sputum cx show few yeast-like organisms , mold like organisms (few), and normal janay present. Await sensitivities. Keep on continuous pulse oximetry. Monitor daily CBCs and BMPs. Continue incentive spirometry, accapella, and aggressive pulmonary toilet. (2) Chest pain Status: Resolved Discussed With: Patient Problem Specific Plan: Monitor Clinically, Repeat Labs Problem Text: Have admitted to telemetry on PCU. Troponins (-) x 3. Repeat EKG was unremarkable and showed sinus rhythm. Monitor Mg levels daily. (3) COPD (chronic obstructive pulmonary disease) Status: Acute Response to Treatment: Progressing Discussed With: Patient Problem Specific Plan: Monitor Clinically, Repeat Labs Problem Text: COPD on 2 L oxygen for 24 hours: continue advair diskus. Have held spiriva for now. (4) Asthma Status: Chronic Response to Treatment: Controlled Problem Specific Plan: Monitor Clinically Problem Text: Continue home medications. (5) History of pneumonia, recurrent Status: Acute Response to Treatment: Progressing Discussed With: Patient Problem Specific Plan: Monitor Clinically, Repeat Labs Problem Text: Has recent QUAN infiltrate on CT scan. Repeat CXR today 06/11 shows: Diffuse chronic changes and advance COPD/emphysematous disease. Improved aeration to the left hemithorax noted with subtle apical and lower lobe atelectasis suggested. No obvious effusion. No pneumothorax. Cardiac silhouette stable. Skeletal structures intact. Impression: Diffuse chronic changes. Improved aeration to the left lung suggested. Will continue to treat with rocephin and azithromycin. Sputum cx as above. Await sensitivities. (6) Diverticulosis Status: Chronic Response to Treatment: Stable Discussed With: Patient Problem Specific Plan: Monitor Clinically Problem Text: Will encourage oral hydration and will follow daily I's/O's and frequency of BMs. Patient constipated. Have added Senokot S and milk of magnesia to help. Will use mag citrate if these do not help. (7) Hemorrhoids Status: Acute Response to Treatment: Stable Discussed With: Patient Problem Specific Plan: Monitor Clinically Problem Text: Have added laxative and stool softeners. Encourage plenty of oral hydration. Plan/VTE VTE Prophylaxis Ordered?: Yes (lovenox 40 mg sc daily) Plan Diet: Continue Current (COPD diet) Activity: Continue Current Therapy: PT Medications: Other Med: (Continue current medications) Respiratory: Other Respiratory (chronically on 24 hour 2 L oxygen. Continue.) Diagnostics: Check Labs, Repeat Labs in AM, Obtain Cultures Anticipated Discharge: Home Advance Directives: DNR (Patient is DNR/DNI, has MOLST form. ) Disposition Discharge to home when medically cleared and stable. DVT ppx: lovenox 40 mg sc daily Immunizations as per protocol. VS, I&O, 24H, Fishbone Vital Signs/I&O Vital Signs Date Time Temp Pulse Resp B/P Pulse Ox O2 Delivery O2 Flow Rate FiO2 06/11/16 18:00 98.8 89 20 133/67 97 Nasal Cannula 2.0 06/08/16 20:20 97 I&O- Last 24 Hours up to 6 AM 06/11/16 05:59 Intake Total 2275 ml Output Total 925 ml Balance 1350 ml Laboratory Data 24H LABS Laboratory Tests 2 06/11/16 05:23: Anion Gap 5L, White Blood Count 11.0H, Red Blood Count 3.94L, Hemoglobin 11.5L, Hematocrit 35.3L, Mean Corpuscular Volume 89.6, Mean Corpuscular Hemoglobin 29.2 , Mean Corpuscular Hemoglobin Concent 32.6, Red Cell Distribution Width 12.7, Platelet Count 286, Neutrophils (%) (Auto) 90.2H, Lymphocytes (%) (Auto) 4.8L, Monocytes (%) (Auto) 4.0, Eosinophils (%) (Auto) 0.3, Basophils (%) (Auto) 0.1, Neutrophils # (Auto) 9.9H, Lymphocytes # (Auto) 0.6L, Monocytes # (Auto) 0.4, Eosinophils # (Auto) 0.0, Basophils # (Auto) 0.0, Blood Urea Nitrogen 25H, Creatinine 0.88, Sodium Level 143, Potassium Level 4.3, Chloride Level 108H, Carbon Dioxide Level 30, Calcium Level 8.4L, Glomerular Filtration Rate > 60.0, Large Unclassified Cells # 0.1, Large Unclassified Cells % 0.6, Magnesium Level 2.4 CBC/BMP Laboratory Tests 06/11/16 05:23 Calcium Level 8.4 L, Red Blood Count 3.94 L, Mean Corpuscular Volume 89.6, Mean Corpuscular Hemoglobin 29.2, Mean Corpuscular Hemoglobin Concent 32.6, Red Cell Distribution Width 12.7, Neutrophils (%) (Auto) 90.2 H, Lymphocytes (%) (Auto) 4.8 L, Monocytes (%) (Auto) 4.0, Eosinophils (%) (Auto) 0.3, Basophils (%) (Auto ) 0.1, Neutrophils # (Auto) 9.9 H, Lymphocytes # (Auto) 0.6 L, Monocytes # (Auto ) 0.4, Eosinophils # (Auto) 0.0, Basophils # (Auto) 0.0 Microbiology Microbiology 06/08/16 Blood Culture - Preliminary, Resulted No Growth after 72 hours. All specime... 06/08/16 Blood Culture - Preliminary, Resulted No Growth after 72 hours. All specime... 06/08/16 Respiratory Virus Panel (PCR) ([facility]) - Final, Complete 06/08/16 MRSA Screen - Final, Complete 06/08/16 Influenza Virus Type A Antigen - Final, Complete 06/08/16 Influenza Virus Type B Antigen - Final, Complete 06/08/16 Gram Stain - Final, Complete 06/08/16 Sputum Culture - Final, Complete Yeast Like Organism Mold Like Organism GME ATTESTATION GME ATTESTATION My preceptor for this patient encounter was Dr. Froy Lomas, and was physically present in the building during the encounter and was fully available. As needed , all aspects of the patient interview, examination, medical decision making process, and medical care plan development were reviewed and approved by the preceptor. Preceptor is aware and concurs with the plan as stated in the body of this note and will attest to such by his/her cosignature. FARZANA JACKSON-1 Jun 11, 2016:51
[2016-06-12] VITALS (7 sets, daily range): BP systolic 110–136; BP diastolic 55–77
[2016-06-12] MEDS: IPRATROPIUM 0.5MG/ALBUTEROL 2.5MG INH SOL UD 3ML (DUONEB)(J7620) NEB SCH ×5 (03:35→19:15)
[2016-06-12] MEDS: cefTRIAXone SOD 1 GM in D5W MINI-BAG PLUS 50 ML IV SCH ×2 (04:08→15:48)
[2016-06-12] MEDS: SLF 3 ML SYR IV SCH ×3 (04:08→21:59)
[2016-06-12 06:05] LABS: BASO % 0.2 % (0.0-1.0); EOS % 0.2 % (0.0-3.0); LARGE UNSTAINED CELL # 0.1 K/mm3 (0.0-0.4); LARGE UNSTAINED CELL % 0.8 % (0.0-4.0); LYMPH # 0.8 K/mm3 (1.5-4.5); LYMPH % 5.5 % (24.0-44.0); MEAN CORPUSCULAR HEMOGLOBIN 29.3 pg (27.0-33.0); MEAN CORPUSCULAR HGB CONC 32.5 g/dl (32.0-36.5); MEAN CORPUSCULAR VOLUME 90.1 fl (80.0-96.0); MONO # 0.6 K/mm3 (0.0-0.8); MONO % 4.7 % (0.0-5.0); NEUTROPHILS # 11.2 K/mm3 (1.8-7.7); NEUTROPHILS % 88.6 % (36.0-66.0); PLATELET COUNT, AUTOMATED 291 k/mm3 (150-450); RED CELL DISTRIBUTION WIDTH 12.6 % (11.5-14.5); WHITE BLOOD COUNT 12.7 K/mm3 (4.0-10.0)
[2016-06-12 06:08] LABS: ANION GAP 7 MEQ/L (8-16); BLOOD UREA NITROGEN 17 MG/DL (7-18); CALCIUM LEVEL 8.5 MG/DL (8.8-10.2); CARBON DIOXIDE LEVEL 29 MEQ/L (21-32); CHLORIDE LEVEL 106 MEQ/L (98-107); CREATININE FOR GFR 0.88 MG/DL (0.70-1.30); GLOMERULAR FILTRATION RATE > 60.0 (>49); GLUCOSE, FASTING 182 MG/DL (80-110); MAGNESIUM LEVEL 2.3 MG/DL (1.8-2.4); POTASSIUM SERUM 4.4 MEQ/L (3.5-5.1); SODIUM LEVEL 142 MEQ/L (136-145)
[2016-06-12] MEDS: ADVAIR DISKUS 500/50 INH PWD INH SCH ×2 (07:24→19:15)
[2016-06-12] MEDS: FLUCONAZOLE 100 MG TAB PO SCH (09:00)
[2016-06-12] MEDS: predniSONE 20 MG TAB PO SCH (09:00)
[2016-06-12] MEDS: ENOXAPARIN 40 MG/0.4 ML SYRINGE (J1650) SC SCH (09:00)
[2016-06-12] MEDS: SENOKOT S TAB PO SCH ×2 (09:00→21:59)
--- NOTE | 2016-06-12 09:29 | IPNPDOC ---
Subjective Date Seen The patient was seen on 06/12/16. Subjective Chief Complaint/HPI The patient is a 65-year-old male admitted with a reason for visit of CAP. General: Denies: Chills, Fatigue, Malaise, Night Sweats, Normal Appetite, Other Symptoms, ROS Unobtainable Constitutional: Denies: Chills, Fatigue, Fever, Lethargy, Malaise, Night Sweats , Other, Weakness, Weight Loss Eyes: Denies: Conjunctivae inflammation, Eyelid inflammation, Other, Pain, Redness, Vision change ENT: Denies: Dysphagia, Ear Pain, Epistaxis, Head Aches, Other Symptoms, Post Nasal Drip, Sinus Congestion, Sore Throat Skin: Denies: Breakdown, Bruising, Dry, Itching, Jaundice, Lesions, Nail Changes, Other, Rash Pulmonary: Reports: Cough, Dyspnea, Denies: Other Symptoms, Pleuritic Chest Pain Cardiovascular: Denies: Chest Pain, Edema, Lt Headedness, Orthopnea, Other Symptoms, Palpitations, Paroxysmal Noc. Dyspnea Gastrointestinal: Denies: Abdominal Pain, Constipation, Diarrhea, Hematochezia , Melena, Nausea, Other Symptoms, Vomiting Genitourinary: Denies: Dysuria, Frequency, Hematuria, Incontinence, Other Symptoms, Retention Hematologic: Denies: Bleeding Excessively, Bruising, Enlarged Lymph Nodes, Other Hematologic, Petecchia, Purpura Objective Physical Examination General Exam: Positive: Alert, Cooperative, Mild Distress Eye Exam: Positive: Conjunctiva & lids normal, EOMI, PERRLA, Negative: Sclera icteric ENT Exam: Positive: Atraumatic, Mucous membr. moist/pink Neck Exam: Positive: Supple, Negative: JVD, Lymphadenopathy, thyromegaly Chest Exam: Positive: Clear to auscultation, Normal air movement, Other Heart Exam: Positive: Normal S1, Normal S2, Rate Normal, Regular Rhythm, Negative: Murmurs Abdomen Exam: Positive: Normal bowel sounds, Soft, Negative: Hepatospenomegaly, Mass, Tenderness Extremity Exam: Negative: Edema, Tenderness Neuro Exam: Positive: Normal Speech Psych Exam: Positive: Anxiety, Oriented x 3 Assessment /Plan Problems (1) Acute chronic obstructive pulmonary disease with respiratory distress Status: Acute Response to Treatment: Controlled Discussed With: Patient Problem Specific Plan: Monitor Clinically, Repeat Labs Problem Text: Continue azithromycin, rocephin - day #4 Steroids tapered to PO today. Continue respiratory treatments - duonebs q4h, proventil q2 PRN SOB/wheezing Titrate O2 between 88-92%. Resp panel negative. MRSA screen negative. Sputum cx show few yeast-like organisms, mold like organisms (few), and normal janay present. Continue incentive spirometry, acapella, and aggressive pulmonary toilet. (2) COPD (chronic obstructive pulmonary disease) Status: Acute Response to Treatment: Progressing Discussed With: Patient Problem Specific Plan: Monitor Clinically, Repeat Labs Problem Text: COPD on 2 L oxygen for 24 hours - at baseline Still some tachypnea. Continue advair diskus, spiriva. (3) Asthma Status: Chronic Response to Treatment: Controlled Problem Specific Plan: Monitor Clinically Problem Text: Continue home medications. (4) History of pneumonia, recurrent Status: Acute Response to Treatment: Progressing Discussed With: Patient Problem Specific Plan: Monitor Clinically, Repeat Labs Problem Text: Has recent QUAN infiltrate on CT scan. Repeat CXR today 06/11 shows: Diffuse chronic changes and advance COPD/emphysematous disease. Improved aeration to the left hemithorax noted with subtle apical and lower lobe atelectasis suggested. No obvious effusion. No pneumothorax. Cardiac silhouette stable. Skeletal structures intact. Impression: Diffuse chronic changes. Improved aeration to the left lung suggested. Will continue to treat with rocephin and azithromycin day #4. Sputum cx as above. Started diflucan. (5) Diverticulosis Status: Chronic Response to Treatment: Stable Discussed With: Patient Problem Specific Plan: Monitor Clinically Problem Text: Will encourage oral hydration and will follow daily I's/O's and frequency of BMs. Patient constipated. Have added Senokot S and milk of magnesia to help. Will use mag citrate if these do not help. (6) Hemorrhoids Status: Acute Response to Treatment: Stable Discussed With: Patient Problem Specific Plan: Monitor Clinically Problem Text: Have added laxative and stool softeners. Encourage plenty of oral hydration. (7) Chest pain Status: Resolved Discussed With: Patient Problem Specific Plan: Monitor Clinically Problem Text: Troponins (-) x 3. Repeat EKG was unremarkable and showed sinus rhythm. Plan/VTE VTE Prophylaxis Ordered?: Yes (lovenox 40 mg sc daily) Plan Diet: Continue Current (COPD diet) Activity: Continue Current Therapy: PT Medications: Other Med: (Continue current medications) Respiratory: Other Respiratory (chronically on 24 hour 2 L oxygen. Continue.) Diagnostics: Check Labs, Repeat Labs in AM, Obtain Cultures Anticipated Discharge: Home Advance Directives: DNR (Patient is DNR/DNI, has MOLST form. ) Disposition Anticipate discharge in 24 hours. 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 Worried about return to work. 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 Will likely discharge home with return to work in 7 days. VS, I&O, 24H, Fishbone Vital Signs/I&O Vital Signs Date Time Temp Pulse Resp B/P Pulse Ox O2 Delivery O2 Flow Rate FiO2 06/12/16 06:00 98.1 70 20 136/63 96 Nasal Cannula 2.0 06/08/16 20:20 97 I&O- Last 24 Hours up to 6 AM 06/12/16 06:00 Intake Total 1970 ml Output Total 1375 ml Balance 595 ml Laboratory Data 24H LABS Laboratory Tests 2 06/12/16 05:13: Anion Gap 7L, White Blood Count 12.7H, Red Blood Count 4.06L, Hemoglobin 11.9L, Hematocrit 36.6L, Mean Corpuscular Volume 90.1, Mean Corpuscular Hemoglobin 29.3 , Mean Corpuscular Hemoglobin Concent 32.5, Red Cell Distribution Width 12.6, Platelet Count 291, Neutrophils (%) (Auto) 88.6H, Lymphocytes (%) (Auto) 5.5L, Monocytes (%) (Auto) 4.7, Eosinophils (%) (Auto) 0.2, Basophils (%) (Auto) 0.2, Neutrophils # (Auto) 11.2H, Lymphocytes # (Auto) 0.8L, Monocytes # (Auto) 0.6, Eosinophils # (Auto) 0.0, Basophils # (Auto) 0.0, Blood Urea Nitrogen 17, Creatinine 0.88, Sodium Level 142, Potassium Level 4.4, Chloride Level 106, Carbon Dioxide Level 29, Calcium Level 8.5L, Glomerular Filtration Rate > 60.0, Large Unclassified Cells # 0.1, Large Unclassified Cells % 0.8, Magnesium Level 2.3 CBC/BMP Laboratory Tests 06/12/16 05:13 Calcium Level 8.5 L, Red Blood Count 4.06 L, Mean Corpuscular Volume 90.1, Mean Corpuscular Hemoglobin 29.3, Mean Corpuscular Hemoglobin Concent 32.5, Red Cell Distribution Width 12.6, Neutrophils (%) (Auto) 88.6 H, Lymphocytes (%) (Auto) 5.5 L, Monocytes (%) (Auto) 4.7, Eosinophils (%) (Auto) 0.2, Basophils (%) (Auto ) 0.2, Neutrophils # (Auto) 11.2 H, Lymphocytes # (Auto) 0.8 L, Monocytes # ( Auto) 0.6, Eosinophils # (Auto) 0.0, Basophils # (Auto) 0.0 Microbiology Microbiology 06/08/16 Blood Culture - Preliminary, Resulted No Growth after 72 hours. All specime... 06/08/16 Blood Culture - Preliminary, Resulted No Growth after 72 hours. All specime... 06/08/16 Respiratory Virus Panel (PCR) ([facility]) - Final, Complete 06/08/16 MRSA Screen - Final, Complete 06/08/16 Influenza Virus Type A Antigen - Final, Complete 06/08/16 Influenza Virus Type B Antigen - Final, Complete 06/08/16 Gram Stain - Final, Complete 06/08/16 Sputum Culture - Final, Complete Yeast Like Organism Mold Like Organism EMMA SPENCER MD Jun 12, 2016 09:29
[2016-06-12] MEDS ORDERED: guaiFENesin 200 MG TAB PO PRN (09:45)
[2016-06-12 09:46] LABS: PHOSPHORUS LEVEL 2.5 MG/DL (2.5-4.9)
[2016-06-12] MEDS: TIOTROPIUM INHALER/CAPSULE (SPIRIVA) INH SCH (15:19)
[2016-06-12] MEDS: AZITHROMYCIN 250 MG TAB PO SCH (17:25)
[2016-06-13] MEDS: IPRATROPIUM 0.5MG/ALBUTEROL 2.5MG INH SOL UD 3ML (DUONEB)(J7620) NEB SCH ×4 (00:03→11:22)
[2016-06-13 02:00] VITALS: BP 114/55
[2016-06-13] MEDS: cefTRIAXone SOD 1 GM in D5W MINI-BAG PLUS 50 ML IV SCH (03:46)
[2016-06-13] MEDS: SLF 3 ML SYR IV SCH (03:47)
[2016-06-13 05:44] LABS: BASO # 0.1 K/mm3 (0.0-0.2); BASO % 0.6 % (0.0-1.0); EOS # 0.1 K/mm3 (0.0-0.50); EOS % 0.7 % (0.0-3.0); LARGE UNSTAINED CELL # 0.2 K/mm3 (0.0-0.4); LARGE UNSTAINED CELL % 1.5 % (0.0-4.0); LYMPH # 1.7 K/mm3 (1.5-4.5); LYMPH % 12.7 % (24.0-44.0); MEAN CORPUSCULAR HEMOGLOBIN 28.5 pg (27.0-33.0); MEAN CORPUSCULAR HGB CONC 32.3 g/dl (32.0-36.5); MEAN CORPUSCULAR VOLUME 88.1 fl (80.0-96.0); MONO # 0.8 K/mm3 (0.0-0.8); NEUTROPHILS # 10.5 K/mm3 (1.8-7.7); NEUTROPHILS % 78.6 % (36.0-66.0); PLATELET COUNT, AUTOMATED 281 k/mm3 (150-450); RED CELL DISTRIBUTION WIDTH 12.6 % (11.5-14.5); WHITE BLOOD COUNT 13.4 K/mm3 (4.0-10.0)
[2016-06-13 05:53] LABS: ANION GAP 8 MEQ/L (8-16); BLOOD UREA NITROGEN 18 MG/DL (7-18); CALCIUM LEVEL 8.1 MG/DL (8.8-10.2); CARBON DIOXIDE LEVEL 28 MEQ/L (21-32); CHLORIDE LEVEL 103 MEQ/L (98-107); CREATININE FOR GFR 0.83 MG/DL (0.70-1.30); GLOMERULAR FILTRATION RATE > 60.0 (>49); GLUCOSE, FASTING 110 MG/DL (80-110); MAGNESIUM LEVEL 2.2 MG/DL (1.8-2.4); SODIUM LEVEL 139 MEQ/L (136-145)
[2016-06-13 06:00] VITALS: BP 138/60
[2016-06-13] MEDS: ADVAIR DISKUS 500/50 INH PWD INH SCH (07:18)
[2016-06-13] MEDS: TIOTROPIUM INHALER/CAPSULE (SPIRIVA) INH SCH (07:18)
[2016-06-13] MEDS: predniSONE 20 MG TAB PO SCH (08:20)
[2016-06-13] MEDS: SENOKOT S TAB PO SCH (08:20)
[2016-06-13] MEDS: FLUCONAZOLE 100 MG TAB PO SCH (08:20)
[2016-06-13] MEDS: ENOXAPARIN 40 MG/0.4 ML SYRINGE (J1650) SC SCH (08:21)
[2016-06-13] MEDS ORDERED: AZIT500T2 PO (09:39)
[2016-06-13] MEDS ORDERED: CEFD1CAP8 PO (09:45)
[2016-06-13] MEDS ORDERED: GUAI20TA PO (09:45)
[2016-06-13] MEDS ORDERED: FLUC10TA PO (09:45)
[2016-06-13] MEDS ORDERED: PRED10TA PO (09:45)
[2016-06-13 10:00] VITALS: BP_SYST 134; BP_SYST 163; BP_DIAS 67; BP_DIAS 81
--- NOTE | 2016-06-13 11:21 | DS.PDOC ---
Discharge Summary General Date of Admission Jun 08, 2016 at 16:17 Date of Discharge Discharge Summary Consults: Discharge diagnosis: Secondary diagnosis: Hospital course: Progress note on date of discharge: Subjective: Objective: Vitals: Gen.: [Patient awake, alert and oriented, verbal and able to answer questions appropriately. He does not appear to be in any acute distress] Heart: [Regular rate and rhythm, normal S1-S2. No murmurs, rubs, clicks or gallops] Lungs: [Clear to auscultation bilaterally. No wheezes, rales or rhonchi] Abdomen: [Active bowel sounds, soft, nontender, no masses to palpation] Labs: Assessment: Disposition: Follow-up: Activity: Diet: Medications on discharge: Cc: Time spent on discharge: Vital Signs/I&Os Vital Signs Date Time Temp Pulse Resp B/P Pulse Ox O2 Delivery O2 Flow Rate FiO2 06/13/16 10:00 98.5 94 24 134/67 97 Nasal Cannula 1.0 06/08/16 20:20 97 I&O- Last 24 Hours up to 6 AM 06/13/16 06:00 Intake Total 2005 ml Output Total 1075 ml Balance 930 ml Laboratory Data Labs 24H Laboratory Tests 2 06/13/16 04:56: Anion Gap 8, White Blood Count 13.4H, Red Blood Count 4.28L, Hemoglobin 12.2L, Hematocrit 37.7L, Mean Corpuscular Volume 88.1, Mean Corpuscular Hemoglobin 28.5 , Mean Corpuscular Hemoglobin Concent 32.3, Red Cell Distribution Width 12.6, Platelet Count 281, Neutrophils (%) (Auto) 78.6H, Lymphocytes (%) (Auto) 12.7L, Monocytes (%) (Auto) 6.0H, Eosinophils (%) (Auto) 0.7, Basophils (%) (Auto) 0.6 , Neutrophils # (Auto) 10.5H, Lymphocytes # (Auto) 1.7, Monocytes # (Auto) 0.8, Eosinophils # (Auto) 0.1, Basophils # (Auto) 0.1, Blood Urea Nitrogen 18, Creatinine 0.83, Sodium Level 139, Potassium Level 4.0, Chloride Level 103, Carbon Dioxide Level 28, Calcium Level 8.1L, Glomerular Filtration Rate > 60.0, Large Unclassified Cells # 0.2, Large Unclassified Cells % 1.5, Magnesium Level 2.2 CBC/BMP Laboratory Tests 06/13/16 04:56 Calcium Level 8.1 L, Red Blood Count 4.28 L, Mean Corpuscular Volume 88.1, Mean Corpuscular Hemoglobin 28.5, Mean Corpuscular Hemoglobin Concent 32.3, Red Cell Distribution Width 12.6, Neutrophils (%) (Auto) 78.6 H, Lymphocytes (%) (Auto) 12.7 L, Monocytes (%) (Auto) 6.0 H, Eosinophils (%) (Auto) 0.7, Basophils (%) ( Auto) 0.6, Neutrophils # (Auto) 10.5 H, Lymphocytes # (Auto) 1.7, Monocytes # ( Auto) 0.8, Eosinophils # (Auto) 0.1, Basophils # (Auto) 0.1 Microbiology Microbiology 06/08/16 Blood Culture - Preliminary, Resulted No Growth after 72 hours. All specime... 06/08/16 Blood Culture - Preliminary, Resulted No Growth after 72 hours. All specime... 06/08/16 Respiratory Virus Panel (PCR) (SOPHIA) - Final, Complete 06/08/16 MRSA Screen - Final, Complete 06/08/16 Influenza Virus Type A Antigen - Final, Complete 06/08/16 Influenza Virus Type B Antigen - Final, Complete 06/08/16 Gram Stain - Final, Complete 06/08/16 Sputum Culture - Final, Complete Yeast Like Organism Mold Like Organism Discharge Medications Scheduled Azithromycin (Azithromycin) 500 Mg Tab 500 MG PO DAILY Cefdinir (Cefdinir) 300 Mg Cap 300 MG PO BID Fluconazole (Diflucan) 100 Mg Tab 100 MG PO DAILY Prednisone (Prednisone) 10 Mg Tab 10 MG PO ASDIRECTED Salmeterol/Fluticasone (Advair Diskus 500-50 Mcg/Dose) 28 Puff/Inhaler Aerp 1 PUFF INH BID (Reported) Tiotropium [place] Monohydrate (Spiriva Handihaler) 18 Mcg Cap 18 MCG INH DAILY (Reported) Scheduled PRN Albuterol Sulfate (Proair Hfa) 108 Mcg/Act Aer 2 PUFF INFIL Q4H PRN PRN SHORTNESS OF BREATH (Reported) Guaifenesin (Guaifenesin) 200 Mg Tab 400 MG PO Q8HP PRN PRN COUGH Allergies Coded Allergies: No Known Drug Allergy (Verified Allergy, Unknown, 06/21/12) FARZANA JACKSON OGME-1 Jun 13, 2016 11:21
== END 2016-06-13 13:11 | disposition home or self-care (01) | DRG 140 ==
LOC: M ED 15:20 → M ED INP 16:17 → M PCU 06-09 15:02 → M MSPAV 06-10 22:29
PROVIDERS: ADMIT Internal Medicine; ATTEND Internal Medicine
DX: J44.0 Chronic obstructive pulmonary disease with (acute) lower respiratory infection (principal); J96.01 Acute respiratory failure with hypoxia; J18.9 Pneumonia, unspecified organism; Z87.891 Personal history of nicotine dependence; Z79.899 Other long term (current) drug therapy; J45.909 Unspecified asthma, uncomplicated; K64.8 Other hemorrhoids; K57.30 Diverticulosis of large intestine without perforation or abscess without bleeding; J44.1 Chronic obstructive pulmonary disease with (acute) exacerbation

== ENCOUNTER → 2016-07-05 | Outpatient (CLI) | payer BC, MEDICARE ==
[~2016-07-05] MED LIST: ADV500INH INH; AZIT500T2 PO; CEFD1CAP8 PO; FLUC10TA PO; GUAI20TA PO; PRED10TA PO; PROA1AER INFIL; SPIR1CAP INH
--- NOTE | 2016-07-05 14:55 | REP ---
CHEST, TWO VIEWS: HISTORY: Left upper lobe pneumonia. COMPARISON: 06/11/2016 The lungs are hyperinflated. An increase in interstitial markings is present in the lungs. Bullae are present in the right upper lobe. An infiltrate is present in the left upper lobe that is decreased compared to the previous study. The heart is normal in size. The pulmonary vasculature is normal in appearance. The bony structure is intact. IMPRESSION: 1. COPD. 2. Left upper lobe infiltrate, decreased compared to the previous study. Signed by Froy Huizar MD 07/05/2016 02:55 P
== END ==
LOC: M RAD 14:29 → M LAB 14:29
PROVIDERS: ATTEND Internal Medicine
DX: J18.9 Pneumonia, unspecified organism (principal); J44.9 Chronic obstructive pulmonary disease, unspecified

== ENCOUNTER → 2016-10-19 | Outpatient (CLI) | payer BC ==
[~2016-10-19] MED LIST changes: +FLOM5CAP PO; +PERC5TAB12 PO; -PRED10TA PO; +PRED10TA2 PO; -PROA1AER INFIL; +PROAAER10 INFIL; +ZOFR4TAB3 PO
--- NOTE | 2016-10-20 05:01 | REP ---
Clinical: COPD follow up left upper lobe infiltrate. Comparison: 06/08/2016. Findings: Advanced COPD and emphysematous changes are again appreciated throughout the bilateral lung coello. Minimal left apical scarring is appreciated and the previously identified left upper lobe infiltrate and scattered atelectasis has resolved. There is a 1 cm nodule in the left upper lobe (image 61) as well as vague 1 cm area of new density with mild spiculation in the deep left lower lobe (image 87) which are more pronounced on current examination since the resolution of prior infiltrate and atelectasis. No effusion. No pneumothorax. Tracheobronchial tree is patent. No obvious adenopathy. Atherosclerotic changes to the thoracic aorta and coronary arteries noted without aortic aneurysm or cardiomegaly. No pericardial effusion. Limited upper abdomen demonstrates 6 mm nonobstructing right renal calculi and small hiatal hernia at the gastroesophageal junction. Surrounding musculoskeletal structures without focal osseous abnormality. Impression: 1. Previously identified left upper lobe infiltrate and scattered atelectasis resolved. 2. 1 cm nodule and 1 cm density in the left lower lobe are more apparent on current examination. 3-month follow-up and/or PET-CT may be warranted for further investigation. Underlying active pathology including neoplasm cannot be excluded. No obvious associated at adenopathy. 3. 6 mm nonobstructing right renal calculus. Signed by Edwar Rojas MD 10/20/2016 04:54 A
== END ==
LOC: M RAD 16:29
PROVIDERS: ATTEND Internal Medicine Pulmonary Disease
DX: R91.1 Solitary pulmonary nodule (principal); N20.0 Calculus of kidney

== ENCOUNTER 2016-11-10 15:02 | Emergency (ER) | payer BC, MEDICARE ==
[~2016-11-10] VITALS: Ht 170.2 cm; Wt 85.5 kg
[~2016-11-10 15:02] MED LIST changes: -FLOM5CAP PO; -PERC5TAB12 PO; -ZOFR4TAB3 PO
[2016-11-10] MEDS ORDERED: NS 500 ML IV ONE (15:45)
[2016-11-10] MEDS ORDERED: ONDANSETRON 4MG/2ML VIAL (J2405) IV ONE (15:45)
[2016-11-10] MEDS ORDERED: KETOROLAC 30 MG/ML VIAL (J1885) IV ONE (15:45)
[2016-11-10] MEDS ORDERED: MORPHINE 4 MG/ML 1ML SYRINGE IV PRN (15:45)
[2016-11-10 16:28] LABS: CALCIUM LEVEL 8.4 MG/DL (8.8-10.2); CREATININE FOR GFR 1.47 MG/DL (0.70-1.30); GLOMERULAR FILTRATION RATE 50.7 (>49); POTASSIUM SERUM 4.1 MEQ/L (3.5-5.1)
--- NOTE | 2016-11-10 16:46 | REP ---
CT abdomen pelvis without IV or oral contrast: History: Right flank pain. No comparison CT study. Findings: Preliminary digital deputy program manager radiograph is unremarkable. The lung bases show emphysematous changes consistent with COPD. The liver and the spleen are normal in size homogeneous in texture. There is a small left lobe low density consistent with a cyst, 0.6 centimeters in diameter. There is some increased density in the dependent portion the gallbladder. This may reflect gallstones. No pancreatic abnormality is observed. No adrenal lesion is seen on either side. There is mild to moderate right-sided hydronephrosis and hydroureter due to a distal ureteral stone 3 mm in diameter. There is mild periureteral edema. The stone is several centimeters above the ureterovesical junction. There are two intrarenal calculi in the upper pole collecting system of the right kidney the largest of which measures 6 mm in greatest diameter. There is a 2 mm calculus intrarenal in the left mid kidney. There are parapelvic cysts in the left kidney. There is an upper pole cortical cyst posteriorly on the left measuring 2.2 cm in diameter. No retroperitoneal mass or adenopathy is seen. Normal appendix is observed. There are dystrophic calcifications in the prostate. The bladder is unremarkable. There are multiple focal areas of increased attenuation and bowel content consistent with opaque ingested material . These are scattered within the stomach and small intestine and large intestine. There is a left inguinal hernia transmitting unobstructed loop of sigmoid colon. No bony destructive lesion seen. Impression: 1. Bilateral intrarenal nephrolithiasis. 2. Hydronephrosis and right ureteral obstruction due to a distal 3 mm calculus located several centimeters above the right ureterovesical junction. 3. Left inguinal hernia transmitting a unobstructed loop of sigmoid colon. 4. Mild prostate enlargement. 5. Multiple foci of opaque ingested material. 6. Increased density in the dependent portion the gallbladder may reflect cholelithiasis or sludge . Signed by Geoffrey Holland MD 11/11/2016 08:29 A
[2016-11-10 16:54] LABS: BASO % 0.5 % (0.0-1.0); EOS # 0.2 K/mm3 (0.0-0.50); EOS % 1.5 % (0.0-3.0); LARGE UNSTAINED CELL # 0.1 K/mm3 (0.0-0.4); LARGE UNSTAINED CELL % 0.9 % (0.0-4.0); LYMPH # 0.7 K/mm3 (1.5-4.5); LYMPH % 6.3 % (24.0-44.0); MEAN CORPUSCULAR HGB CONC 33.9 g/dl (32.0-36.5); MEAN CORPUSCULAR VOLUME 85.6 fl (80.0-96.0); MONO # 0.7 K/mm3 (0.0-0.8); MONO % 6.4 % (0.0-5.0); NEUTROPHILS # 8.9 K/mm3 (1.8-7.7); NEUTROPHILS % 84.3 % (36.0-66.0); PLATELET COUNT, AUTOMATED 154 k/mm3 (150-450); RED CELL DISTRIBUTION WIDTH 13.1 % (11.5-14.5); WHITE BLOOD COUNT 10.6 K/mm3 (4.0-10.0)
[2016-11-10] MEDS ORDERED: PERC5TAB12 PO (17:16)
[2016-11-10] MEDS ORDERED: ZOFR4TAB3 PO (17:16)
[2016-11-10] MEDS ORDERED: FLOM5CAP PO (17:16)
[2016-11-10 17:17] VITALS: BP 142/75
== END 2016-11-10 17:29 | disposition home or self-care (01) ==
LOC: M ED 15:02
DX: N20.0 Calculus of kidney (principal); J44.9 Chronic obstructive pulmonary disease, unspecified; Z87.09 Personal history of other diseases of the respiratory system; Z79.899 Other long term (current) drug therapy; Z79.51 Long term (current) use of inhaled steroids; Z87.891 Personal history of nicotine dependence
CPT/HCPCS: 74176; 80048; 81001; 85025; 87086; 96374; 96375; 99283; J1885; J2405

== ENCOUNTER 2020-03-10 16:48 | Inpatient (IN) | payer BC, MEDICARE, SELFPAY ==
[~2020-03-10] VITALS: Ht 172.7 cm; Wt 81.5 kg
[~2020-03-10 16:48] MED LIST changes: -AZIT500T2 PO; +AZIT500T5 PO; +FLOM0.4C39 PO; +PERC5TAB12 PO; -PROAAER10 INFIL; +PROAAER10 INH; +ZOFR4TAB14 PO
[2020-03-10] MEDS ORDERED: methylPREDNISolone 125MG 2ML VIAL IV ONE (17:00)
[2020-03-10] MEDS: COMBIVENT RESPIMAT 100-20MCG INHALER 4GM INH SCH ×3 (17:17→17:31)
[2020-03-10 17:18] LABS: BASO # 0.1 10^3/uL (0.0-0.2); BASO % 0.7 % (0.0-1.0); EOS # 0.2 10^3/uL (0.0-0.5); EOS % 0.9 % (0.0-3.0); HEMOGLOBIN 13.9 g/dl (13.5-17.5); LYMPH % 10.1 % (24.0-44.0); MEAN CORPUSCULAR HEMOGLOBIN 28.5 pg (27.0-33.0); MEAN CORPUSCULAR HGB CONC 31.6 g/dl (32.0-36.5); MEAN CORPUSCULAR VOLUME 90.2 fl (80.0-96.0); MONO # 1.8 10^3/uL (0.0-0.8); MONO % 9.2 % (0.0-5.0); NEUTROPHILS # 15.4 10^3/uL (1.5-8.5); NEUTROPHILS % 78.2 % (36.0-66.0); PLATELET COUNT, AUTOMATED 217 10^3/uL (150-450); RED BLOOD COUNT 4.88 10^6/uL (4.30-6.10); WHITE BLOOD COUNT 19.7 10^3/uL (4.0-10.0)
--- NOTE | 2020-03-10 17:39 | REP ---
INDICATION: DYSPNEA/COUGH. COMPARISON: Multiple the latest 07/05/2016 TECHNIQUE: The technique utilized in obtaining the radiograph has magnified the cardiac silhouette and attenuated the interstitial markings. FINDINGS: The superior mediastinal structures are midline. The cardiac silhouette is unchanged in size, shape, and position. The diaphragmatic surfaces of the lungs are regular, and the costophrenic angles are clear. There are bibasilar curvilinear densities status quo. The lung coello are hyperexpanded. No acute patchy parenchymal opacities or pleural effusions have developed. The imaged osseous structures are unchanged. IMPRESSION: Stable appearing chronic changes. <Electronically signed by Misbah Garcia > 03/10/20 [id number]
[2020-03-10 17:50] LABS: ALBUMIN 3.7 GM/DL (3.2-5.2); BILIRUBIN,DIRECT 0.4 MG/DL (0.0-0.2); BILIRUBIN,TOTAL 1.3 MG/DL (0.2-1.0); THYROID STIMULATING HORMONE 1.01 uIU/ML (0.358-3.740); THYROXINE (T4) 12.7 UG/DL (4.5-12.0); TOTAL PROTEIN 7.5 GM/DL (6.4-8.2)
[2020-03-10 18:23] LABS: RSV AMPLIFICATION NEGATIVE (NEGATIVE)
[2020-03-10] MEDS ORDERED: cefTRIAXone SOD 1 GM in D5W MINI-BAG PLUS 50 ML IV ONE (18:30)
[2020-03-10] MEDS ORDERED: ISOVUE-370 76% 100ML VIAL As Ordered ONE (18:30)
[2020-03-10] MEDS ORDERED: AZITHROMYCIN INJ 500 MG, VIAL MATE ADAPTER 1 EACH in D5W 250 ML IV ONE (18:30)
[2020-03-10] MEDS ORDERED: NS 1,000 ML IV ONE (19:00)
--- NOTE | 2020-03-10 19:21 | REPVR ---
PROCEDURE INFORMATION: Exam: CT Angiography Chest With Contrast Exam date and time: 03/10/2020 6:41 PM Age: 69 years old Clinical indication: Other: RO pe TECHNIQUE: Imaging protocol: Computed tomographic angiography of the chest with intravenous contrast. 3D rendering (Not supervised by radiologist): MIP and/or 3D reconstructed images were created by the technologist. Radiation optimization: All CT scans at this facility use at least one of these dose optimization techniques: automated exposure control; mA and/or kV adjustment per patient size (includes targeted exams where dose is matched to clinical indication); or iterative reconstruction. Contrast material: ISOVUE 370; Contrast volume: 75 ml; Contrast route: INTRAVENOUS (IV); COMPARISON: CT Chest without contrast 01/13/2017 3:24 PM FINDINGS: Limitations: Patient respiratory motion. Pulmonary arteries: No convincing evidence of pulmonary embolus. Aorta: Aortic calcification without aneurysm or dissection. Lungs: There is severe emphysema with upper lobe predominance. Scattered linear atelectasis or scarring. No consolidation to indicate pneumonia. Left upper lobe pulmonary nodule measures 5 mm and is stable from 03/15/2017. Pleural space: Unremarkable. No pneumothorax. No pleural effusion. Heart: Coronary artery calcification. Mediastinal space: Small hiatal hernia. Lymph nodes: Unremarkable. No enlarged lymph nodes. Liver: Hepatic steatosis. Small left hepatic hypodensity is too small to characterize. Kidneys and ureters: 3.3 cm left renal cyst. Bones/joints: There are degenerative changes involving the spine. Soft tissues: Unremarkable. IMPRESSION: 1. No evidence of pulmonary embolus. 2. Severe pulmonary emphysema. 3. Additional findings as above. COMMENTS: Consistent with the [employer]'s Incidental Findings Committee white paper (J Am Andrey Radiol 2018): Any incidental renal lesion less than 1 cm or classified as too small to characterize, or any incidental cystic renal lesion characterized as simple-appearing, is likely benign. No follow-up imaging is recommended for these lesions per consensus recommendations based on imaging criteria. Electronically signed by: Monroe Thomason On 03/10/2020 19:21:41 PM
--- NOTE | 2020-03-10 21:22 | HPEPDOC ---
[facility] Medical History & Physical Date of Admission Mar 10, 2020 Date of Service: Mar 10, 2020 Primary Care Physician: Jr Moore Collins Attending Physician: ANDRZEJ BOATENG MD History and Physical TIME OF SERVICE: 1045pm CHIEF COMPLAINT: Shortness of breath HISTORY OF PRESENT ILLNESS: This 69-year-old gentleman presented with complaints of shortness of breath for about 3 weeks. As of breath. He became more anxious, which made him hyperventilate and further become short of breath. Over the last few days he couldn't take care of himself. Today came to the hospital because he couldn't get up to go to the bathroom, couldn't eat because of his dyspnea. Has a chronic cough which is productive of clear sputum, but over the last few days he has producing more sputum. He denied having lower extremity swelling, chest pain, dizziness, fever or chills. REVIEW OF SYSTEMS: 12 point review of systems negative except as listed in HPI PAST MEDICAL/ SURGICAL HISTORY: COPD Chronic oxygen-dependent respiratory failure (2L) Diverticulosis Hemorrhoids Resection of tubular adenoma SOCIAL HISTORY: Is a former smoker He doesn't drink alcohol or use recreational drugs FAMILY HISTORY: His father of a CVA. His mother of bladder cancer, diabetes. ALLERGIES: Please see below. HOME MEDICATIONS: Please see below. PHYSICAL EXAMINATION: VITAL SIGNS: Please see below. GEN: well nourished / well developed/ NAD INTEGUMENT: he doesn't have facial plethora HEENT:NCAT / lips are not cyanotic / he has pursed lip breathing / NC in place / mucus membranes moist and pink CVS: RRR/ radial and dorsalis pedis pulses intact / no lower extremity edema LUNGS: he is tachypneic/ he is not not able to speak full sentences without stopping to take a breath / occasionally coughing / using accessory muscles /breath sounds are diminished ABDOMEN: soft & not tender with palpation NEURO: CN 2-12 are grossly intact / speech is not dysarthric PSYCH: alert and oriented to person place and time/ able to understand and follow all commands LABORATORY DATA: See below. IMAGING: Chest X-ray "IMPRESSION: Stable appearing chronic changes." CTA chest "IMPRESSION: 1. No evidence of pulmonary embolus. 2. Severe pulmonary emphysema. 3. Additional findings as above. " MICROBIOLOGY: Please see below. ASSESSMENT: Mr. Callejas is a 69-year-old with a history of COPD and chronic oxygen- dependent respiratory failure who presented with complaints of 3 week in duration dyspnea that makes it difficult for him to complete activities of daily living. He will be admitted for management of acute COPD. PLAN: 1. Acute COPD/Asthma Because his chest x-ray CTA and respiratory panel were unremarkable it is unclear what the triggure of acute episode was. He reports a little bit better after receiving steroids and DuoNeb's in the ER; he was also given ceftriaxone and azithromycin. He received his "flu" shot from his PCP recently BAP-65 Score to predict mortality in acute COPD = class 3 = 2.2% in hospital mortality Reason for admission: [place] chronic obstructive pulmonary disease risk score (OCRS) guide to admission vs discharge in COPD exacerbation = 5 points = high risk Plan: admit to medical floor / supplemental O2 / continuous pulse oximetry / aspiration precautions / COPD diet / f/u sputum cx / DuoNeb Q6H, Albuterol Q1HP, Prednisone + PPI / c/w Spiriva / will give Levofloxacin because the patient has an increase in sputum volume / Tessalon Pearls / will place request for referral to Pulmonary Rehab which has been shown to reduce exacerbation & mortality if patient attends within 4 weeks of episode of acute COPD 2. Chronic O2 dependent respiratory failure He is DNR 3. SIRS Acute cardia and tachypnea are likely reactive. Plan: Follow up blood cultures 4. Lactic acidosis. Likely type B lactic acidosis due to Plan: Trend lactic acid 5. Thyroid sick syndrome. TSH and T4 level were normal. Plan: No additional intervention needed DVT PROPHYLAXIS: Lovenox DISPOSITION: home after more than 2 midnight's stay Vital Signs Vital Signs Date Time Temp Pulse Resp B/P (MAP) Pulse Ox O2 Delivery O2 Flow Rate FiO2 03/10/20 19:30 103 35 153/82 (105) 94 Nasal Cannula 2.0 03/10/20 17:50 97.5 Laboratory Data Labs 24H Laboratory Tests 2 03/10/20 17:02: Immature Granulocyte % (Auto) 0.9, Neutrophils (%) (Auto) 78.2H, Lymphocytes (%) (Auto) 10.1L, Monocytes (%) (Auto) 9.2H, Eosinophils (%) (Auto) 0.9, Basophils (%) (Auto) 0.7, Neutrophils # (Auto) 15.4H, Lymphocytes # (Auto) 2.0, Monocytes # (Auto) 1.8H, Eosinophils # (Auto) 0.2, Basophils # (Auto) 0.1, Nucleated Red Blood Cells % (auto) 0.0, POC pH (Misc Panel) 7.428, POC Base Excess (Misc Panel) 2.0, POC Saturated Percent O2 (Misc) 98, POC pO2 (Misc Panel) 109.0H, POC pCO2 (Misc Panel) 39.5, POC HCO3 (Misc Panel) 26.1H, POC Total CO2 (Misc Panel) 27.0, Lactic Acid Level 2.5*H, Total Bilirubin 1.3H, Direct Bilirubin 0.4H, Aspartate Amino Transf (AST/SGOT) 7, Alanine Aminotransferase (ALT/SGPT) 23, Alkaline Phosphatase 90, NH-Gza-C-Type Natriuretic Peptide 48, Total Protein 7.5, Albumin 3.7, Albumin/Globulin Ratio 1.0, Thyroid Stimulating Hormone (TSH) 1.010, Thyroxine (T4) 12.7H, Coronavirus (COVID-19)(PCR) NEGATIVE, Influenza Type A (RT-PCR) NEGATIVE, Influenza Type B (RT-PCR) NEGATIVE, Respiratory Syncytial Virus (PCR) NEGATIVE 03/10/20 17:10: POC Total CO2 (Misc Panel) 25.0, POC Glucose (Misc Panel) 176H, POC Sodium (Misc Panel) 140, POC Potassium (Misc Panel) 4.3, POC Chloride (Misc Panel) 107, POC Blood Urea Nitrogen (Misc Panel 21, POC Ionized Calcium (Misc Panel) 4.6, POC Creatinine (Misc Panel) 1.0, POC Hematocrit (Misc Panel) 42.0 03/10/20 17:23: POC Troponin I (Misc) 0.10H 03/10/20 19:30: POC Troponin I (Misc) 0.00 CBC/BMP Laboratory Tests 03/10/20 17:02 Microbiology Microbiology 03/10/20 Blood Culture, Received Pending 03/10/20 Blood Culture, Received Pending Home Medications Scheduled Salmeterol/Fluticasone (Advair 500-50 Diskus) 28 Puff/Inhaler Aerp, 1 PUFF INH BID Tiotropium [place] (Spiriva) 18 Mcg Cap, 18 MCG INH DAILY Scheduled PRN Albuterol Sulfate (Proair Hfa) 108 Mcg/Act Aer, 2 PUFF INH Q4H PRN for SHORTNESS OF BREATH Allergies Coded Allergies: No Known Allergies (Unverified , 03/10/20) A-FIB/CHADSVASC A-FIB History Current/History of A-Fib/PAF?: No Current PO Anticoag Therapy: No ANDRZEJ BOATENG MD Mar 10, 2020 21:22
[2020-03-10] MEDS ORDERED: ALBUTEROL SULFATE 2.5 MG/0.5 ML INH NEB SOLN NEB PRN (21:30)
[2020-03-10] MEDS ORDERED: MAALOX 30 ML SUSP *UDC PO PRN (21:30)
[2020-03-10] MEDS ORDERED: ACETAMINOPHEN TAB 650MG DOSE (2X325MG) PO PRN (21:30)
[2020-03-10] MEDS ORDERED: MORPHINE 2 MG/ML 1ML VIAL (J2270) IV ONE (23:00)
[2020-03-10] MEDS: RAMELTEON 8 MG TAB (ROZEREM) PO SCH (23:31)
[2020-03-11] MEDS: LevoFLOXacin IV 500 MG in IV 1 EA IV SCH ×2 (00:07→23:15)
[2020-03-11] MEDS: IPRATROPIUM 0.5MG/ALBUTEROL 2.5MG INH SOL UD 3ML (DUONEB) NEB SCH ×4 (01:44→19:38)
[2020-03-11 03:22] VITALS: BP 158/84
[2020-03-11] MEDS ORDERED: hydrOXYzine 50 MG TAB PO ONE (04:00)
[2020-03-11] MEDS: BENZONATATE 100 MG CAP PO SCH ×3 (05:34→21:31)
[2020-03-11 06:00] VITALS: BP 139/62
[2020-03-11 06:20] LABS: HEMATOCRIT 38.6 % (42.0-52.0); HEMOGLOBIN 12.2 g/dl (13.5-17.5); MEAN CORPUSCULAR HEMOGLOBIN 28.4 pg (27.0-33.0); MEAN CORPUSCULAR HGB CONC 31.6 g/dl (32.0-36.5); PLATELET COUNT, AUTOMATED 150 10^3/uL (150-450); RED BLOOD COUNT 4.29 10^6/uL (4.30-6.10); WHITE BLOOD COUNT 10.5 10^3/uL (4.0-10.0)
[2020-03-11 06:52] LABS: BLOOD UREA NITROGEN 21 MG/DL (7-18); CALCIUM LEVEL 8.5 MG/DL (8.8-10.2); CARBON DIOXIDE LEVEL 29 MEQ/L (21-32); CHLORIDE LEVEL 106 MEQ/L (98-107); CREATININE FOR GFR 1.06 MG/DL (0.70-1.30); GLOMERULAR FILTRATION RATE > 60.0 (>42); GLUCOSE, FASTING 163 MG/DL (70-100); POTASSIUM SERUM 4.7 MEQ/L (3.5-5.1); SODIUM LEVEL 139 MEQ/L (136-145)
--- NOTE | 2020-03-11 08:01 | ECGEPIP ---
[facility] - ED Test Date: 2020-03-11 Pat Name: NAINA GUIDRY Department: Room: [place] [address] Gender: Male Car Tester: nathalie : [id number] Requested By: Lissa Hardwick Order Number: [id number] Reading MD: Carlos Christiansen Measurements Intervals [place] Rate: 79 P: 84 OR: 247 QRS: 14 QRSD: 108 T: 59 QT: 373 QTc: 428 Interpretive Statements SINUS RHYTHM WITH FIRST DEGREE AV BLOCK POOR R WAVE PROGRESSION MODERATE INTRAVENTRICULAR CONDUCTION DELAY NSTTW ABNORMALITY(S) Electronically Signed on 03-11-2020 8:01:17 EST by Carlos Christiansen
[2020-03-11 09:00] VITALS: O2SAT 93
[2020-03-11] MEDS: PANTOPRAZOLE 40MG TAB (PROTONIX) PO SCH (10:03)
[2020-03-11] MEDS: predniSONE 20 MG TAB PO SCH (10:03)
[2020-03-11] MEDS: ENOXAPARIN 40MG/0.4ML SYRINGE (J1650 PER 10MG) SC SCH (10:04)
[2020-03-11] MEDS: TIOTROPIUM INHALER/CAPSULE (SPIRIVA) INH SCH (10:15)
--- NOTE | 2020-03-11 13:40 | IPNPDOC ---
Date Seen The patient was seen on 03/11/20. Progress Note Subjective: Shortness of breath is only slightly improved still persistently dyspnea and exertional and he is currently lying on his left side with no complaints of chest pain and pressure worsening, fever or chills Objective: PHYSICAL EXAMINATION: VITAL SIGNS: Please see below. GEN: speaks in full sentences no pallor or cyanosis HEENT: no jvd trachea midline no stridor CVS: RRR S1S2 no carotid bruit LUNGS: diminished prolonged expiration b/l expiratory wheezing ABDOMEN: Soft nontender nondistended positive bowel sounds obese EXT: no c/c/e LABORATORY DATA: See below. IMAGING: Chest X-ray "IMPRESSION: Stable appearing chronic changes." CTA chest "IMPRESSION: 1. No evidence of pulmonary embolus. 2. Severe pulmonary emphysema. 3. Additional findings as above. " MICROBIOLOGY: Please see below. ASSESSMENT: 69-year-old male w chronic hypoxic respiratory failure and supplemental oxygen COPD admitted for worsening shortness of breath at this reduce found to have acute COPD exacerbation. Problem list: Acute COPD exacerbation Chronic hypoxic respiratory failure Euthyroid sick syndrome Lactic acidosis, resolved Plan: Continuing intravenous Solu-Medrol nebulizers supplemental oxygen until patient's respiratory status is back to baseline and tapered to prednisone. Continue all other home medications. DVT prophylaxis with Lovenox activity as tolerated. disposition: 2-3 days VS, I&O, 24H, [facility] Vital Signs/I&O Vital Signs Date Time Temp Pulse Resp B/P (MAP) Pulse Ox O2 Delivery O2 Flow Rate FiO2 03/11/20 13:20 25 03/11/20 06:00 96.3 78 139/62 (87) 100 Nasal Cannula 4.0 I&O- Last 24 Hours up to 6 AM 03/11/20 06:00 Intake Total 1655 ml Output Total 0 ml Balance 1655 ml Laboratory Data 24H LABS Laboratory Tests 2 03/10/20 17:02: Immature Granulocyte % (Auto) 0.9, Neutrophils (%) (Auto) 78.2H, Lymphocytes (%) (Auto) 10.1L, Monocytes (%) (Auto) 9.2H, Eosinophils (%) (Auto) 0.9, Basophils (%) (Auto) 0.7, Neutrophils # (Auto) 15.4H, Lymphocytes # (Auto) 2.0, Monocytes # (Auto) 1.8H, Eosinophils # (Auto) 0.2, Basophils # (Auto) 0.1, Nucleated Red Blood Cells % (auto) 0.0, POC pH (Misc Panel) 7.428, POC Base Excess (Misc Panel) 2.0, POC Saturated Percent O2 (Misc) 98, POC pO2 (Misc Panel) 109.0H, POC pCO2 (Misc Panel) 39.5, POC HCO3 (Misc Panel) 26.1H, POC Total CO2 (Misc Panel) 27.0, Lactic Acid Level 2.5*H, Total Bilirubin 1.3H, Direct Bilirubin 0.4H, Aspartate Amino Transf (AST/SGOT) 7, Alanine Aminotransferase (ALT/SGPT) 23, Alkaline Phosphatase 90, BH-Ksh-X-Type Natriuretic Peptide 48, Total Protein 7.5, Albumin 3.7, Albumin/Globulin Ratio 1.0, Thyroid Stimulating Hormone (TSH) 1.010, Thyroxine (T4) 12.7H, Coronavirus (COVID-19)(PCR) NEGATIVE, Influenza Type A (RT-PCR) NEGATIVE, Influenza Type B (RT-PCR) NEGATIVE, Respiratory Syncytial Virus (PCR) NEGATIVE 03/10/20 17:10: POC Total CO2 (Misc Panel) 25.0, POC Glucose (Misc Panel) 176H, POC Sodium (Misc Panel) 140, POC Potassium (Misc Panel) 4.3, POC Chloride (Misc Panel) 107, POC Blood Urea Nitrogen (Misc Panel 21, POC Ionized Calcium (Misc Panel) 4.6, POC Creatinine (Misc Panel) 1.0, POC Hematocrit (Misc Panel) 42.0 03/10/20 17:23: POC Troponin I (Misc) 0.10H 03/10/20 19:30: POC Troponin I (Misc) 0.00 03/10/20 22:24: Lactic Acid Followup at 4 Hours 1.3 03/11/20 05:31: Nucleated Red Blood Cells % (auto) 0.0, Anion Gap 4L, Glomerular Filtration Rate > 60.0, Calcium Level 8.5L 03/11/20 10:43: Lab Scanned Report Miscellaneous Lab CBC/BMP Laboratory Tests 03/10/20 17:02 03/11/20 05:31 Microbiology Microbiology 03/10/20 Blood Culture, Received Pending 03/10/20 Blood Culture, Received Pending ACE KLEIN MD Mar 11, 2020 13:40
[2020-03-11 14:00] VITALS: BP 133/58
[2020-03-11] MEDS: RAMELTEON 8 MG TAB (ROZEREM) PO SCH (21:31)
[2020-03-12 00:33] VITALS: O2SAT 98
[2020-03-12] MEDS: IPRATROPIUM 0.5MG/ALBUTEROL 2.5MG INH SOL UD 3ML (DUONEB) NEB SCH ×4 (02:57→19:18)
[2020-03-12] MEDS: BENZONATATE 100 MG CAP PO SCH ×3 (05:48→21:25)
[2020-03-12 06:00] VITALS: BP 124/63
[2020-03-12] MEDS: TIOTROPIUM INHALER/CAPSULE (SPIRIVA) INH SCH (08:30)
[2020-03-12 09:00] VITALS: O2SAT 96
[2020-03-12] MEDS: predniSONE 20 MG TAB PO SCH (09:32)
[2020-03-12] MEDS: PANTOPRAZOLE 40MG TAB (PROTONIX) PO SCH (09:32)
[2020-03-12] MEDS: ENOXAPARIN 40MG/0.4ML SYRINGE (J1650 PER 10MG) SC SCH (09:33)
--- NOTE | 2020-03-12 10:20 | IPNPDOC ---
Date Seen The patient was seen on 03/12/20. Progress Note Subjective: Patient has not been out of bed and requires 1 person assistance to get up to go to the bathroom and stand. . His breathing is improved. No fever or chills. No dyspnea and exertion, paroxysmal nocturnal dyspnea. Objective: PHYSICAL EXAMINATION: VITAL SIGNS: Please see below. GEN:, Appears comfortable, no conversational dyspnea No pallor, no icterus HEENT: no jvd trachea midline no stridor . No use of respiratory accessory muscles CVS: RRR S1S2 no carotid bruit LUNGS: diminished clear to auscultation bilaterally. No adventitious breath sounds ABDOMEN: Soft nontender nondistended positive bowel sounds obese EXT: no c/c/e LABORATORY DATA: See below. IMAGING: Chest X-ray "IMPRESSION: Stable appearing chronic changes." CTA chest "IMPRESSION: 1. No evidence of pulmonary embolus. 2. Severe pulmonary emphysema. 3. Additional findings as above. " MICROBIOLOGY: Please see below. ASSESSMENT: 69-year-old male w chronic hypoxic respiratory failure and supplemental oxygen COPD admitted for worsening shortness of breath at this reduce found to have acute COPD exacerbation. Acute COPD exacerbation -Improved on IV Solu-Medrol, currently with clear lungs without wheezing -Changed to oral prednisone today twice a day dosing -Continuing supplemental oxygen to keep saturations at 80-92% -On nebulizers as needed and 4 times a day for comfort Chronic hypoxic respiratory failure -Continuing supplemental oxygen to keep saturations at 80-92% -On nebulizers as needed and 4 times a day for comfort -Being treated for acute COPD exacerbation with IV steroids with improvement Euthyroid sick syndrome -Recheck thyroid profile after acute illness has resolved Debility -PT, OT acute rehabilitation Lactic acidosis, resolved disposition: 2-3 days VS, I&O, 24H, Fishbone Vital Signs/I&O Vital Signs Date Time Temp Pulse Resp B/P (MAP) Pulse Ox O2 Delivery O2 Flow Rate FiO2 03/12/20 06:00 97.8 87 18 124/63 (83) 95 Nasal Cannula 4.0 I&O- Last 24 Hours up to 6 AM 03/12/20 06:00 Intake Total 690 ml Output Total 200 ml Balance 490 ml Laboratory Data 24H LABS Laboratory Tests 2 03/11/20 10:43: Lab Scanned Report Miscellaneous Lab Microbiology Microbiology 03/10/20 Blood Culture - Preliminary, Resulted No growth after 24 hours . All specim... 03/10/20 Blood Culture - Preliminary, Resulted No growth after 24 hours . All specim... ACE KLEIN MD Mar 12, 2020 10:20
[2020-03-12 14:00] VITALS: BP 121/62
[2020-03-12] MEDS: RAMELTEON 8 MG TAB (ROZEREM) PO SCH (21:25)
[2020-03-12 22:00] VITALS: BP 106/62
[2020-03-13] MEDS: IPRATROPIUM 0.5MG/ALBUTEROL 2.5MG INH SOL UD 3ML (DUONEB) NEB SCH ×2 (01:31→07:03)
[2020-03-13 01:32] VITALS: O2SAT 96
[2020-03-13 06:00] VITALS: BP 108/54
[2020-03-13] MEDS: LevoFLOXacin 500 MG TABLET PO SCH (06:04)
[2020-03-13] MEDS: BENZONATATE 100 MG CAP PO SCH ×3 (06:04→22:23)
[2020-03-13] MEDS: TIOTROPIUM INHALER/CAPSULE (SPIRIVA) INH SCH (07:03)
--- NOTE | 2020-03-13 08:50 | IPNPDOC ---
Date Seen The patient was seen on 03/13/20. Progress Note Subjective: c/o GARCIA with hypoxia when ambulated from bed to bathroom. denies cp, pressure, tightness, lightheadedness. no fever chillls. slight cough Objective: PHYSICAL EXAMINATION: VITAL SIGNS: Please see below. GEN:, no respiratory acc mm use HEENT: no jvd trachea midline no stridor . CVS: RRR S1S2 no carotid bruit LUNGS: diminished clear to auscultation bilaterally. ABDOMEN: Soft nontender nondistended positive bowel sounds obese EXT: no c/c/e LABORATORY DATA: See below. IMAGING: Chest X-ray "IMPRESSION: Stable appearing chronic changes." CTA chest "IMPRESSION: 1. No evidence of pulmonary embolus. 2. Severe pulmonary emphysema. 3. Additional findings as above. " MICROBIOLOGY: Please see below. ASSESSMENT: 69-year-old male w chronic hypoxic respiratory failure and supplemental oxygen COPD admitted for worsening shortness of breath at this reduce found to have acute COPD exacerbation. Acute COPD exacerbation -Changed to oral prednisone t -Continuing supplemental oxygen to keep saturations at 80-92% -On nebulizers as needed and 4 times a day for comfort Chronic hypoxic respiratory failure -Continuing supplemental oxygen to keep saturations at 80-92% -On nebulizers as needed and 4 times a day for comfort -Being treated for acute COPD exacerbation with IV steroids with improvement Debility -PT, OT acute rehabilitation Lactic acidosis, resolved disposition: rehab VS, I&O, 24H, Fishbone Vital Signs/I&O Vital Signs Date Time Temp Pulse Resp B/P (MAP) Pulse Ox O2 Delivery O2 Flow Rate FiO2 03/13/20 06:00 98.3 75 20 108/54 (72) 99 Nasal Cannula 3.0 I&O- Last 24 Hours up to 6 AM 03/13/20 06:00 Intake Total 680 ml Output Total 350 ml Balance 330 ml Laboratory Data Microbiology Microbiology 03/10/20 Blood Culture - Preliminary, Resulted No Growth after 48 hours. All Specime... 03/10/20 Blood Culture - Preliminary, Resulted No Growth after 48 hours. All Specime... ACE KLEIN MD Mar 13, 2020 08:50
[2020-03-13] MEDS: predniSONE 20 MG TAB PO SCH (09:04)
[2020-03-13] MEDS: PANTOPRAZOLE 40MG TAB (PROTONIX) PO SCH (09:04)
[2020-03-13] MEDS: ENOXAPARIN 40MG/0.4ML SYRINGE (J1650 PER 10MG) SC SCH (09:05)
[2020-03-13] MEDS ORDERED: LEVALBUTEROL 1.25 MG/0.5 ML CONCENTRATE NEB INH PRN (10:30)
[2020-03-13 10:31] LABS: BASO % 0.2 % (0.0-1.0); EOS # 0.1 10^3/uL (0.0-0.5); EOS % 0.3 % (0.0-3.0); HEMATOCRIT 42.4 % (42.0-52.0); HEMOGLOBIN 12.9 g/dl (13.5-17.5); LYMPH # 1.8 10^3/uL (1.5-5.0); LYMPH % 12.2 % (24.0-44.0); MEAN CORPUSCULAR HEMOGLOBIN 27.7 pg (27.0-33.0); MEAN CORPUSCULAR HGB CONC 30.4 g/dl (32.0-36.5); MEAN CORPUSCULAR VOLUME 91.2 fl (80.0-96.0); MONO # 1.3 10^3/uL (0.0-0.8); MONO % 8.4 % (0.0-5.0); NEUTROPHILS # 11.8 10^3/uL (1.5-8.5); NEUTROPHILS % 78.2 % (36.0-66.0); PLATELET COUNT, AUTOMATED 235 10^3/uL (150-450); RED BLOOD COUNT 4.65 10^6/uL (4.30-6.10)
[2020-03-13] MEDS ORDERED: methylPREDNISolone 125MG 2ML VIAL IV SCH (11:00)
--- NOTE | 2020-03-13 11:05 | REP ---
INDICATION: SOB COMPARISON: 03/10/2020 TECHNIQUE: Portable AP view of the chest FINDINGS: The mediastinum and cardiac silhouette are stable and within normal limits for portable technique. Lung coello demonstrate stable chronic COPD/emphysematous disease and stable chronic bibasilar changes (left greater than right).. No obvious acute consolidation, effusion, or pneumothorax identified. IMPRESSION: Stable chronic changes. No obvious acute consolidation or effusion. <Electronically signed by Edwar Rojas > 03/13/20 110
[2020-03-13 11:06] LABS: ALBUMIN 3.2 GM/DL (3.2-5.2); ALT/SGPT 26 U/L (12-78); BILIRUBIN,TOTAL 0.5 MG/DL (0.2-1.0); BLOOD UREA NITROGEN 27 MG/DL (7-18); CALCIUM LEVEL 8.8 MG/DL (8.8-10.2); CARBON DIOXIDE LEVEL 30 MEQ/L (21-32); CHLORIDE LEVEL 105 MEQ/L (98-107); CK-MB VALUE MASS 8.2 NG/ML (<3.6); CPK CREATINE PHOSPHOKINASE 150 U/L (39-308); GLOMERULAR FILTRATION RATE > 60.0 (>42); GLUCOSE, FASTING 120 MG/DL (70-100); MB/CK RELATIVE INDEX 5.47 (< OR =4); NT-PRO BNP 113 PG/ML (<125); POTASSIUM SERUM 4.2 MEQ/L (3.5-5.1); SODIUM LEVEL 141 MEQ/L (136-145); TOTAL PROTEIN 6.7 GM/DL (6.4-8.2); TROPONIN I < 0.02 NG/ML (< 0.10)
[2020-03-13] MEDS: LEVALBUTEROL 1.25 MG/0.5 ML CONCENTRATE NEB INH SCH ×3 (11:25→20:00)
[2020-03-13 14:00] VITALS: BP 117/68
[2020-03-13 22:00] VITALS: BP 154/81
[2020-03-13] MEDS: RAMELTEON 8 MG TAB (ROZEREM) PO SCH (22:23)
[2020-03-13] MEDS: methylPREDNISolone 125MG 2ML VIAL IV SCH (22:23)
[2020-03-13] MEDS ORDERED: SUCRALFATE SUSP 1GM/10ML UD PO ONE (23:00)
[2020-03-14] MEDS: LEVALBUTEROL 1.25 MG/0.5 ML CONCENTRATE NEB INH SCH ×6 (01:07→19:51)
[2020-03-14 06:00] VITALS: BP 139/82
[2020-03-14 06:28] LABS: BASO % 0.2 % (0.0-1.0); HEMATOCRIT 40.6 % (42.0-52.0); LYMPH # 0.4 10^3/uL (1.5-5.0); LYMPH % 2.4 % (24.0-44.0); MEAN CORPUSCULAR HEMOGLOBIN 28.6 pg (27.0-33.0); MEAN CORPUSCULAR VOLUME 89.2 fl (80.0-96.0); MONO # 0.4 10^3/uL (0.0-0.8); MONO % 2.6 % (0.0-5.0); NEUTROPHILS # 15.4 10^3/uL (1.5-8.5); PLATELET COUNT, AUTOMATED 217 10^3/uL (150-450); RED BLOOD COUNT 4.55 10^6/uL (4.30-6.10); WHITE BLOOD COUNT 16.4 10^3/uL (4.0-10.0)
[2020-03-14 06:47] LABS: BLOOD UREA NITROGEN 22 MG/DL (7-18); CALCIUM LEVEL 8.8 MG/DL (8.8-10.2); CARBON DIOXIDE LEVEL 31 MEQ/L (21-32); CHLORIDE LEVEL 104 MEQ/L (98-107); CREATININE FOR GFR 1.06 MG/DL (0.70-1.30); GLOMERULAR FILTRATION RATE > 60.0 (>42); GLUCOSE, FASTING 156 MG/DL (70-100); POTASSIUM SERUM 4.7 MEQ/L (3.5-5.1); SODIUM LEVEL 141 MEQ/L (136-145)
[2020-03-14] MEDS: BENZONATATE 100 MG CAP PO SCH ×3 (06:47→21:49)
[2020-03-14] MEDS: LevoFLOXacin 500 MG TABLET PO SCH (06:47)
[2020-03-14] MEDS: TIOTROPIUM INHALER/CAPSULE (SPIRIVA) INH SCH (07:29)
[2020-03-14] MEDS: PANTOPRAZOLE 40MG TAB (PROTONIX) PO SCH (08:50)
[2020-03-14] MEDS: methylPREDNISolone 125MG 2ML VIAL IV SCH ×2 (08:50→21:50)
[2020-03-14] MEDS: ENOXAPARIN 40MG/0.4ML SYRINGE (J1650 PER 10MG) SC SCH (08:50)
--- NOTE | 2020-03-14 09:21 | IPNPDOC ---
Date Seen The patient was seen on 03/14/20. Progress Note Subjective: Patient says that his breathing is improved today, and he is less exhausted. No fever, chills or cough Overnight.He has not been out of bed this morning . He denies any chest pain, pressure, tightness, lightheadedness or dizziness Objective: PHYSICAL EXAMINATION: VITAL SIGNS: Please see below. GEN:, Awake, alert, oriented 3, answering questions appropriately no respiratory acc mm use HEENT: no jvd trachea midline no stridor ., No carotid bruit CVS: RRR S1S2 no murmurs noted LUNGS: diminished clear to auscultation bilaterally. ABDOMEN: Soft nontender nondistended positive bowel sounds obese EXT: no c/c/e LABORATORY DATA: See below. IMAGING: Chest X-ray "IMPRESSION: Stable appearing chronic changes." CTA chest "IMPRESSION: 1. No evidence of pulmonary embolus. 2. Severe pulmonary emphysema. 3. Additional findings as above. " MICROBIOLOGY: Please see below. ASSESSMENT: 69-year-old male w chronic hypoxic respiratory failure and supplemental oxygen COPD admitted for worsening shortness of breath at this reduce found to have acute COPD exacerbation. Acute COPD exacerbation On IV Solu-Medrol and doing better Supplemental oxygen Nebulizers Chronic hypoxic respiratory failure -Continuing supplemental oxygen to keep saturations at 80-92% -On nebulizers as needed and 4 times a day for comfort -Being treated for acute COPD exacerbation with IV steroids with improvement Debility -PT, OT acute rehabilitation Lactic acidosis, resolved disposition: rehab.. Keep on IV Solu-Medrol for 2-3 days until clinical improvement without dyspnea on exertion. VS, I&O, 24H, Fishbone Vital Signs/I&O Vital Signs Date Time Temp Pulse Resp B/P (MAP) Pulse Ox O2 Delivery O2 Flow Rate FiO2 03/14/20 06:00 97.4 87 18 139/82 (101) 97 Nasal Cannula 3.0 I&O- Last 24 Hours up to 6 AM 03/14/20 06:00 Intake Total 750 ml Output Total 700 ml Balance 50 ml Laboratory Data 24H LABS Laboratory Tests 2 03/13/20 10:17: Immature Granulocyte % (Auto) 0.7, Neutrophils (%) (Auto) 78.2H, Lymphocytes (%) (Auto) 12.2L, Monocytes (%) (Auto) 8.4H, Eosinophils (%) (Auto) 0.3, Basophils (%) (Auto) 0.2, Neutrophils # (Auto) 11.8H, Lymphocytes # (Auto) 1.8, Monocytes # (Auto) 1.3H, Eosinophils # (Auto) 0.1, Basophils # (Auto) 0.0, Nucleated Red Blood Cells % (auto) 0.0, Anion Gap 6L, Glomerular Filtration Rate > 60.0, Calc ium Level 8.8, Total Bilirubin 0.5#, Aspartate Amino Transf (AST/SGOT) 20, Alanine Aminotransferase (ALT/SGPT) 26, Alkaline Phosphatase 67, Total Creatine Kinase 150, Creatine Kinase MB 8.2H, Creatine Kinase MB Relative Index 5.47H, Troponin I < 0.02, [id number]-[id number]-Type Natriuretic Peptide 113, Total Protein 6.7, Albumin 3.2, Albumin/Globulin Ratio 0.9 03/14/20 05:20: Immature Granulocyte % (Auto) 0.8, Neutrophils (%) (Auto) 94.0H, Lymphocytes (%) (Auto) 2.4L, Monocytes (%) (Auto) 2.6, Eosinophils (%) (Auto) 0.0, Basophils (%) (Auto) 0.2, Neutrophils # (Auto) 15.4H, Lymphocytes # (Auto) 0.4L, Monocytes # (Auto) 0.4, Eosinophils # (Auto) 0.0, Basophils # (Auto) 0.0, Nucleated Red Blood Cells % (auto) 0.0, Anion Gap 6L, Glomerular Filtration Rate > 60.0, Calcium Level 8.8 CBC/BMP Laboratory Tests 03/13/20 10:17 03/14/20 05:20 Microbiology Microbiology 03/10/20 Blood Culture - Preliminary, Resulted No Growth after 72 hours. All specime... 03/10/20 Blood Culture - Preliminary, Resulted No Growth after 72 hours. All specime... ACE KLEIN MD Mar 14, 2020 09:21
[2020-03-14] MEDS: MOM 30ML SUSPENSION UDC PO PRN (09:58)
[2020-03-14 14:00] VITALS: BP 101/75
[2020-03-14] MEDS: RAMELTEON 8 MG TAB (ROZEREM) PO SCH (21:49)
[2020-03-14 22:00] VITALS: BP 127/61
[2020-03-15] MEDS: LevoFLOXacin 500 MG TABLET PO SCH (05:11)
[2020-03-15] MEDS: BENZONATATE 100 MG CAP PO SCH ×3 (05:11→20:48)
[2020-03-15] MEDS: LEVALBUTEROL 1.25 MG/0.5 ML CONCENTRATE NEB INH SCH ×7 (05:14→23:45)
[2020-03-15 06:00] VITALS: BP 125/63
[2020-03-15 06:54] LABS: BASO # 0.1 10^3/uL (0.0-0.2); BASO % 0.4 % (0.0-1.0); HEMATOCRIT 41.7 % (42.0-52.0); LYMPH # 0.6 10^3/uL (1.5-5.0); LYMPH % 2.9 % (24.0-44.0); MEAN CORPUSCULAR HGB CONC 31.2 g/dl (32.0-36.5); MEAN CORPUSCULAR VOLUME 89.7 fl (80.0-96.0); MONO # 1.1 10^3/uL (0.0-0.8); MONO % 5.5 % (0.0-5.0); NEUTROPHILS # 18.4 10^3/uL (1.5-8.5); PLATELET COUNT, AUTOMATED 242 10^3/uL (150-450); RED BLOOD COUNT 4.65 10^6/uL (4.30-6.10); WHITE BLOOD COUNT 20.7 10^3/uL (4.0-10.0)
[2020-03-15 07:15] LABS: BLOOD UREA NITROGEN 25 MG/DL (7-18); CALCIUM LEVEL 9.2 MG/DL (8.8-10.2); CARBON DIOXIDE LEVEL 32 MEQ/L (21-32); CHLORIDE LEVEL 101 MEQ/L (98-107); CREATININE FOR GFR 1.19 MG/DL (0.70-1.30); GLOMERULAR FILTRATION RATE > 60.0 (>42); GLUCOSE, FASTING 149 MG/DL (70-100); SODIUM LEVEL 138 MEQ/L (136-145)
[2020-03-15] MEDS: TIOTROPIUM INHALER/CAPSULE (SPIRIVA) INH SCH (07:15)
[2020-03-15] MEDS: PANTOPRAZOLE 40MG TAB (PROTONIX) PO SCH (08:42)
[2020-03-15] MEDS: predniSONE 20 MG TAB PO SCH ×3 (08:42→20:48)
[2020-03-15] MEDS: ENOXAPARIN 40MG/0.4ML SYRINGE (J1650 PER 10MG) SC SCH (08:42)
--- NOTE | 2020-03-15 09:49 | IPNPDOC ---
Date Seen The patient was seen on 03/15/20. Progress Note Subjective: Still complains of generalized weakness, unable to stand and ambulate without assistance . No complaints of dizziness, lightheadedness , Shortness of breath is improved , No cough, fever, chills Objective: PHYSICAL EXAMINATION: VITAL SIGNS: Please see below. GEN:, Awake, alert, oriented 3, able to complete full sentences answering questions appropriately no respiratory acc mm use HEENT: no jvd trachea midline no stridor ., No carotid bruit , No cervical lymphadenopathy, thyromegaly . No pharyngeal erythema, moist mucous membranes CVS: RRR S1S2 no murmurs noted LUNGS: diminished clear to auscultation bilaterally. ABDOMEN: Soft nontender nondistended positive bowel sounds obese EXT: no c/c/e LABORATORY DATA: See below. IMAGING: Chest X-ray "IMPRESSION: Stable appearing chronic changes." CTA chest "IMPRESSION: 1. No evidence of pulmonary embolus. 2. Severe pulmonary emphysema. 3. Additional findings as above. " MICROBIOLOGY: Please see below. ASSESSMENT: 69-year-old male w chronic hypoxic respiratory failure and supplemental oxygen COPD admitted for worsening shortness of breath at this reduce found to have acute COPD exacerbation. Acute COPD exacerbation s/p IV Solu-Medrol and doing better Changed to oral prednisone 3 times a day Supplemental oxygen Nebulizers Chronic hypoxic respiratory failure -Continuing supplemental oxygen to keep saturations at 80-92% -On nebulizers as needed and 4 times a day for comfort -Being treated for acute COPD exacerbation with IV steroids with improvement Debility -PT, OT acute rehabilitation -Requires assistance with ambulation, may need rehabilitation -Encourage out of bed to chair for meals, 4 times a day ambulation with assistance Lactic acidosis, resolved disposition: rehab., Clinically improved. Change to by mouth prednisone 3 times a day VS, I&O, 24H, Fishbone Vital Signs/I&O Vital Signs Date Time Temp Pulse Resp B/P (MAP) Pulse Ox O2 Delivery O2 Flow Rate FiO2 03/15/20 06:00 98.0 66 20 125/63 (83) 97 Nasal Cannula 3.0 I&O- Last 24 Hours up to 6 AM 03/15/20 06:00 Intake Total 1050 ml Output Total 800 ml Balance 250 ml Laboratory Data 24H LABS Laboratory Tests 2 03/15/20 06:37: Immature Granulocyte % (Auto) 2.2, Neutrophils (%) (Auto) 89.0H, Lymphocytes (%) (Auto) 2.9L, Monocytes (%) (Auto) 5.5H, Eosinophils (%) (Auto) 0.0, Basophils (%) (Auto) 0.4, Neutrophils # (Auto) 18.4H, Lymphocytes # (Auto) 0.6L, Monocytes # (Auto) 1.1H, Eosinophils # (Auto) 0.0, Basophils # (Auto) 0.1, Nucleated Red Blood Cells % (auto) 0.0, Anion Gap 5L, Glomerular Filtration Rate > 60.0, Calcium Level 9.2 CBC/BMP Laboratory Tests 03/15/20 06:37 Microbiology Microbiology 03/10/20 Blood Culture - Preliminary, Resulted No Growth after 72 hours. All specime... 03/10/20 Blood Culture - Preliminary, Resulted No Growth after 72 hours. All specime... ACE KLEIN MD Mar 15, 2020 09:49
[2020-03-15 14:00] VITALS: BP 130/66
[2020-03-15] MEDS: MOM 30ML SUSPENSION UDC PO PRN (16:11)
[2020-03-15] MEDS ORDERED: FLEET ENEMA PR PRN (16:30)
[2020-03-15] MEDS ORDERED: MAGNESIUM CITRATE 300 ML BTL PO ONE (17:00)
[2020-03-15] MEDS ORDERED: CETIRIZINE (ZyrTEC) 10 MG TAB PO ONE (17:00)
[2020-03-15] MEDS: guaiFENesin ER 600 MG TAB PO SCH ×2 (17:11→20:48)
[2020-03-15] MEDS: MIRALAX *UNIT DOSE* 17GM PACKET PO SCH (20:48)
[2020-03-15] MEDS: RAMELTEON 8 MG TAB (ROZEREM) PO SCH (20:48)
[2020-03-15 22:00] VITALS: BP 130/67
[2020-03-16] MEDS: LEVALBUTEROL 1.25 MG/0.5 ML CONCENTRATE NEB INH SCH ×5 (04:10→19:52)
[2020-03-16] MEDS: BENZONATATE 100 MG CAP PO SCH ×3 (05:33→21:22)
[2020-03-16] MEDS: LevoFLOXacin 500 MG TABLET PO SCH (05:33)
[2020-03-16 06:00] VITALS: BP 142/70
[2020-03-16 07:12] LABS: BASO # 0.1 10^3/uL (0.0-0.2); BASO % 0.5 % (0.0-1.0); HEMATOCRIT 36.5 % (42.0-52.0); HEMOGLOBIN 11.3 g/dl (13.5-17.5); LYMPH # 0.5 10^3/uL (1.5-5.0); LYMPH % 3.1 % (24.0-44.0); MEAN CORPUSCULAR HEMOGLOBIN 27.6 pg (27.0-33.0); MEAN CORPUSCULAR VOLUME 89.2 fl (80.0-96.0); MONO # 0.8 10^3/uL (0.0-0.8); NEUTROPHILS # 14.5 10^3/uL (1.5-8.5); NEUTROPHILS % 88.9 % (36.0-66.0); PLATELET COUNT, AUTOMATED 198 10^3/uL (150-450); RED BLOOD COUNT 4.09 10^6/uL (4.30-6.10); WHITE BLOOD COUNT 16.3 10^3/uL (4.0-10.0)
[2020-03-16] MEDS: TIOTROPIUM INHALER/CAPSULE (SPIRIVA) INH SCH (07:20)
[2020-03-16 07:33] LABS: BLOOD UREA NITROGEN 25 MG/DL (7-18); CALCIUM LEVEL 8.6 MG/DL (8.8-10.2); CARBON DIOXIDE LEVEL 34 MEQ/L (21-32); CHLORIDE LEVEL 101 MEQ/L (98-107); CREATININE FOR GFR 1.08 MG/DL (0.70-1.30); GLOMERULAR FILTRATION RATE > 60.0 (>42); GLUCOSE, FASTING 164 MG/DL (70-100); POTASSIUM SERUM 4.7 MEQ/L (3.5-5.1); SODIUM LEVEL 139 MEQ/L (136-145)
[2020-03-16] MEDS: predniSONE 20 MG TAB PO SCH ×3 (08:46→21:22)
[2020-03-16] MEDS: CETIRIZINE (ZyrTEC) 10 MG TAB PO SCH (08:46)
[2020-03-16] MEDS: guaiFENesin ER 600 MG TAB PO SCH ×2 (08:46→21:22)
[2020-03-16] MEDS: PANTOPRAZOLE 40MG TAB (PROTONIX) PO SCH (08:46)
[2020-03-16] MEDS: ENOXAPARIN 40MG/0.4ML SYRINGE (J1650 PER 10MG) SC SCH (08:47)
[2020-03-16 09:00] VITALS: O2SAT 97
[2020-03-16] MEDS: MIRALAX *UNIT DOSE* 17GM PACKET PO SCH ×2 (09:00→21:00)
--- NOTE | 2020-03-16 10:26 | IPNPDOC ---
Date Seen The patient was seen on 03/16/20. Progress Note Subjective: Unable to get up this morning to go to the bedside commode. Complains of generalized weakness Denies dyspnea or dyspnea on exertion Denies chest pain, pressure, tightness, lightheadedness or dizziness, nausea, vomiting, diaphoresis , No fever, chills overnight Objective: PHYSICAL EXAMINATION: VITAL SIGNS: Please see below. GEN:, Awake, alert, oriented 3, no pallor, icterus or cyanosis answering questions appropriately no respiratory acc mm use HEENT: no jvd trachea midline no stridor , No carotid bruit , No cervical lymphadenopathy, thyromegaly . No pharyngeal erythema, moist mucous membranes CVS: RRR S1S2 no murmurs noted LUNGS: diminished clear to auscultation bilaterally. ABDOMEN: Soft nontender nondistended positive bowel sounds obese EXT: no c/c/e LABORATORY DATA: See below. IMAGING: Chest X-ray "IMPRESSION: Stable appearing chronic changes." CTA chest "IMPRESSION: 1. No evidence of pulmonary embolus. 2. Severe pulmonary emphysema. 3. Additional findings as above. " MICROBIOLOGY: Please see below. ASSESSMENT: 69-year-old male w chronic hypoxic respiratory failure and supplemental oxygen COPD admitted for worsening shortness of breath with acute copd exacerbation. Acute COPD exacerbation s/p IV Solu-Medrol and doing better Changed to oral prednisone 3 times a day on 03/15/20 did well overnight without SOB or GARCIA no wheezing on exam today. Supplemental oxygen Nebulizers Clinically improved back to baseline Chronic hypoxic respiratory failure -Continuing supplemental oxygen to keep saturations at 88-92% -On nebulizers as needed and 4 times a day for comfort -Being treated for acute COPD exacerbation Debility -unable to get up to go the bedside commode this morning. -needed one person assistance to get out of bed -c/o generalized weakness, but no focal neurologic deficits -PT, OT acute rehabilitation -Requires assistance with ambulation, may need rehabilitation -Encourage out of bed to chair for meals, 4 times a day ambulation with assistance Lactic acidosis, resolved disposition: unable to ambulate without assistance due to deconditioning. ARU consulted. if appropriate for acute rehab, will keep the patient in acute status. if appropriate for SUBACUTE rehab, pt can be changed to ALC/SNF status. awaiting ARU screen and PT/OT recommendations. VS, I&O, 24H, Fishbone Vital Signs/I&O Vital Signs Date Time Temp Pulse Resp B/P (MAP) Pulse Ox O2 Delivery O2 Flow Rate FiO2 03/16/20 06:00 97.0 80 22 142/70 (94) 96 Nasal Cannula 2.0 I&O- Last 24 Hours up to 6 AM 03/16/20 06:00 Intake Total 1550 ml Output Total 1200 ml Balance 350 ml Laboratory Data 24H LABS Laboratory Tests 2 03/16/20 06:48: Immature Granulocyte % (Auto) 2.5, Neutrophils (%) (Auto) 88.9H, Lymphocytes (%) (Auto) 3.1L, Monocytes (%) (Auto) 5.0, Eosinophils (%) (Auto) 0.0, Basophils (%) (Auto) 0.5, Neutrophils # (Auto) 14.5H, Lymphocytes # (Auto) 0.5L, Monocytes # (Auto) 0.8, Eosinophils # (Auto) 0.0, Basophils # (Auto) 0.1, Nucleated Red Blood Cells % (auto) 0.0, Anion Gap 4L, Glomerular Filtration Rate > 60.0, Calcium Level 8.6L CBC/BMP Laboratory Tests 03/16/20 06:48 Microbiology Microbiology 03/10/20 Blood Culture - Final, Complete NO GROWTH AFTER 5 DAYS 03/10/20 Blood Culture - Final, Complete NO GROWTH AFTER 5 DAYS ACE KLEIN MD Mar 16, 2020 10:13
[2020-03-16 14:00] VITALS: BP 120/63
[2020-03-16] MEDS: RAMELTEON 8 MG TAB (ROZEREM) PO SCH (21:22)
[2020-03-16 22:00] VITALS: BP 123/57
[2020-03-17] MEDS: LEVALBUTEROL 1.25 MG/0.5 ML CONCENTRATE NEB INH SCH ×6 (00:12→23:51)
[2020-03-17] MEDS: LevoFLOXacin 500 MG TABLET PO SCH (05:25)
[2020-03-17] MEDS: BENZONATATE 100 MG CAP PO SCH ×3 (05:25→21:41)
[2020-03-17 06:00] VITALS: BP 127/60
[2020-03-17 06:18] LABS: BASO # 0.1 10^3/uL (0.0-0.2); BASO % 0.6 % (0.0-1.0); LYMPH # 0.4 10^3/uL (1.5-5.0); MEAN CORPUSCULAR HEMOGLOBIN 28.7 pg (27.0-33.0); MEAN CORPUSCULAR HGB CONC 31.6 g/dl (32.0-36.5); MEAN CORPUSCULAR VOLUME 90.9 fl (80.0-96.0); MONO # 0.8 10^3/uL (0.0-0.8); MONO % 4.6 % (0.0-5.0); NEUTROPHILS # 16.2 10^3/uL (1.5-8.5); PLATELET COUNT, AUTOMATED 211 10^3/uL (150-450); RED BLOOD COUNT 4.18 10^6/uL (4.30-6.10); WHITE BLOOD COUNT 18.1 10^3/uL (4.0-10.0)
[2020-03-17 06:41] LABS: BLOOD UREA NITROGEN 26 MG/DL (7-18); CALCIUM LEVEL 8.5 MG/DL (8.8-10.2); CARBON DIOXIDE LEVEL 32 MEQ/L (21-32); CHLORIDE LEVEL 104 MEQ/L (98-107); CREATININE FOR GFR 1.07 MG/DL (0.70-1.30); GLOMERULAR FILTRATION RATE > 60.0 (>42); GLUCOSE, FASTING 188 MG/DL (70-100); POTASSIUM SERUM 4.9 MEQ/L (3.5-5.1); SODIUM LEVEL 141 MEQ/L (136-145)
[2020-03-17] MEDS: MIRALAX *UNIT DOSE* 17GM PACKET PO SCH ×2 (08:00→20:49)
[2020-03-17] MEDS: PANTOPRAZOLE 40MG TAB (PROTONIX) PO SCH (08:00)
[2020-03-17] MEDS: guaiFENesin ER 600 MG TAB PO SCH ×2 (08:00→21:41)
[2020-03-17] MEDS: predniSONE 20 MG TAB PO SCH ×2 (08:00→21:41)
[2020-03-17] MEDS: CETIRIZINE (ZyrTEC) 10 MG TAB PO SCH (08:00)
[2020-03-17] MEDS: ENOXAPARIN 40MG/0.4ML SYRINGE (J1650 PER 10MG) SC SCH (08:01)
[2020-03-17] MEDS: TIOTROPIUM INHALER/CAPSULE (SPIRIVA) INH SCH (08:45)
--- NOTE | 2020-03-17 12:45 | IPNPDOC ---
Text Note Date of Service The patient was seen on 03/17/20. NOTE Subjective: Patient seen and examined at bedside. No acute overnight events reported. This morning it was noted that he was feeling short of breath and appeared to be very anxious. He had no other medical complaints this morning. Objective: PHYSICAL EXAMINATION: VITAL SIGNS: Please see below. GEN:, Awake, alert, oriented 3, no pallor, icterus or cyanosis answering questions appropriately no respiratory acc mm use HEENT: no jvd trachea midline no stridor , No carotid bruit , No cervical lymphadenopathy, thyromegaly . No pharyngeal erythema, moist mucous membranes CVS: RRR S1S2 no murmurs noted LUNGS: diminished clear to auscultation bilaterally. ABDOMEN: Soft nontender nondistended positive bowel sounds obese EXT: no c/c/e ASSESSMENT: 69-year-old male w chronic hypoxic respiratory failure and supplemental oxygen COPD admitted for worsening shortness of breath with acute copd exacerbation. #Acute COPD exacerbation - taper previously ordered TID prednisone to BID today - QD tomorrow - Supplemental oxygen - respiratory treatments #Chronic hypoxic respiratory failure -Continuing supplemental oxygen to keep saturations at 88-92% -On nebulizers as needed and 4 times a day for comfort -Being treated for acute COPD exacerbation #Debility -unable to get up to go the bedside commode this morning. -needed one person assistance to get out of bed -c/o generalized weakness, but no focal neurologic deficits -PT, OT acute rehabilitation -Requires assistance with ambulation, may need rehabilitation -Encourage out of bed to chair for meals, 4 times a day ambulation with assistance #Lactic acidosis, resolved disposition: pending clinical improvement, further eval by PT Carline MÁRQUEZ I+O VSCarline I+O Laboratory Tests 03/17/20 05:18 Vital Signs Date Time Temp Pulse Resp B/P (MAP) Pulse Ox O2 Delivery O2 Flow Rate FiO2 03/17/20 09:00 2.0 03/17/20 06:00 98.2 81 18 127/60 (82) 95 High Flow Cannula I&O- Last 24 Hours up to 6 AM 03/17/20 06:00 Intake Total 910 ml Output Total 900 ml Balance 10 ml EMMA SPENCER MD Mar 17, 2020 12:45
[2020-03-17 14:00] VITALS: BP 112/55
[2020-03-17] MEDS: RAMELTEON 8 MG TAB (ROZEREM) PO SCH (21:41)
[2020-03-17 22:00] VITALS: BP 147/87
[2020-03-18] MEDS: LEVALBUTEROL 1.25 MG/0.5 ML CONCENTRATE NEB INH SCH ×5 (04:00→19:38)
[2020-03-18] MEDS: BENZONATATE 100 MG CAP PO SCH ×3 (05:39→22:12)
[2020-03-18 06:00] VITALS: BP 165/74
[2020-03-18 06:33] LABS: HEMATOCRIT 39.5 % (42.0-52.0); HEMOGLOBIN 11.9 g/dl (13.5-17.5); MEAN CORPUSCULAR HEMOGLOBIN 27.7 pg (27.0-33.0); MEAN CORPUSCULAR HGB CONC 30.1 g/dl (32.0-36.5); MEAN CORPUSCULAR VOLUME 92.1 fl (80.0-96.0); PLATELET COUNT, AUTOMATED 220 10^3/uL (150-450); RED BLOOD COUNT 4.29 10^6/uL (4.30-6.10); WHITE BLOOD COUNT 18.4 10^3/uL (4.0-10.0)
[2020-03-18 07:07] LABS: BLOOD UREA NITROGEN 24 MG/DL (7-18); CALCIUM LEVEL 8.4 MG/DL (8.8-10.2); CARBON DIOXIDE LEVEL 32 MEQ/L (21-32); CHLORIDE LEVEL 104 MEQ/L (98-107); CREATININE FOR GFR 1.06 MG/DL (0.70-1.30); GLOMERULAR FILTRATION RATE > 60.0 (>42); GLUCOSE, FASTING 152 MG/DL (70-100); POTASSIUM SERUM 4.5 MEQ/L (3.5-5.1); SODIUM LEVEL 141 MEQ/L (136-145)
[2020-03-18 07:09] LABS: ATYPICAL LYMPH 1 % (0-5); LYMPHOCYTES 3 % (16-44); METAMYELOCYTES 1 % (0-0); MONOCYTES 3 % (0-5); NEUTROPHILS 91 % (28-66); PLATELET ESTIMATE NORMAL (NORMAL)
[2020-03-18] MEDS: CETIRIZINE (ZyrTEC) 10 MG TAB PO SCH (07:26)
[2020-03-18] MEDS: guaiFENesin ER 600 MG TAB PO SCH ×2 (07:27→20:51)
[2020-03-18] MEDS: ENOXAPARIN 40MG/0.4ML SYRINGE (J1650 PER 10MG) SC SCH (07:27)
[2020-03-18] MEDS: PANTOPRAZOLE 40MG TAB (PROTONIX) PO SCH (07:27)
[2020-03-18] MEDS: MIRALAX *UNIT DOSE* 17GM PACKET PO SCH ×2 (07:27→21:00)
[2020-03-18] MEDS: predniSONE 20 MG TAB PO SCH (07:27)
[2020-03-18] MEDS: TIOTROPIUM INHALER/CAPSULE (SPIRIVA) INH SCH (08:02)
[2020-03-18 08:04] VITALS: O2SAT 94
--- NOTE | 2020-03-18 12:02 | ECHO ---
DATE OF PROCEDURE: 03/14/2020 Age: 69 Gender: Male Height: 68 inches Weight: 178 pounds REFERRING PHYSICIAN: Thu Agarwal MD INDICATION: Dyspnea. MEASUREMENTS: 2D Measurements: Aortic root 3.5 cm Left atrium 3.6 cm Left ventricle diastole 4.2 cm Intraventricular septum 0.99 cm Posterior wall 0.95 cm Inferior vena cava 2.0 cm (more than 50% respiratory variation). Doppler Measurements: No aortic stenosis No aortic regurgitation Aortic valve velocity 115 cm/s LVOT velocity 97.0 cm/s No mitral stenosis No mitral regurgitation Mitral E velocity 42.4 cm/s Mitral A velocity 85.4 cm/s Very mild tricuspid regurgitation No pulmonic regurgitation Pulmonary artery systolic pressure 40 mmHg MITRAL ANNULAR TISSUE DOPPLER E prime septal 6.2 cm/s, E prime lateral 5.8 cm/s DESCRIPTION: Rhythm was sinus. This was a technically difficult echocardiogram. No suprasternal notch window views were available (technically difficult). No pericardial effusion. This was a 2D, M-mode, color flow Doppler, and pulsed wave Doppler examination including mitral annular tissue Doppler. CONCLUSIONS: * Normal left ventricle internal dimensions and wall thickness. Normal regional LV wall motion and wall thickening. Normal LV systolic function. LVEF 65% by visual assessment. Grade 1 LV diastolic dysfunction. * Mild mitral annular calcification. No mitral regurgitation. * Normal right ventricle size with mild hypertrophy of the right ventricle free wall (0.9 cm). Normal right ventricle systolic function. Suggestive of moderate elevation of pulmonary artery systolic pressure (40 mmHg). * Mild mitral annular calcification. No mitral regurgitation. * Otherwise normal appearing echocardiogram Doppler findings. * Technically difficult echocardiogram. MTDD
--- NOTE | 2020-03-18 12:41 | IPNPDOC ---
Text Note Date of Service The patient was seen on 03/18/20. NOTE Subjective: Patient seen and examined at bedside. No acute overnight events reported. Feels much better this morning. Breathing improved. Objective: PHYSICAL EXAMINATION: VITAL SIGNS: Please see below. GEN:, Awake, alert, oriented 3, no pallor, icterus or cyanosis answering questions appropriately no respiratory acc mm use HEENT: no jvd trachea midline no stridor , No carotid bruit , No cervical lymphadenopathy, thyromegaly . No pharyngeal erythema, moist mucous membranes CVS: RRR S1S2 no murmurs noted LUNGS: diminished clear to auscultation bilaterally. ABDOMEN: Soft nontender nondistended positive bowel sounds obese EXT: no c/c/e ASSESSMENT: 69-year-old male w chronic hypoxic respiratory failure and supplemental oxygen COPD admitted for worsening shortness of breath with acute copd exacerbation. #Acute COPD exacerbation - prednisone tapered to 60 qd - Supplemental oxygen - respiratory treatments #Chronic hypoxic respiratory failure -Continuing supplemental oxygen to keep saturations at 88-92% -On nebulizers as needed and 4 times a day for comfort -Being treated for acute COPD exacerbation #Debility -unable to get up to go the bedside commode this morning. -needed one person assistance to get out of bed -c/o generalized weakness, but no focal neurologic deficits -PT, OT acute rehabilitation -Requires assistance with ambulation, may need rehabilitation -Encourage out of bed to chair for meals, 4 times a day ambulation with assistance #Lactic acidosis, resolved disposition: pending clinical improvement, further eval by PT VS,Carline, I+O VS, Carline I+O Laboratory Tests 03/18/20 05:36 Vital Signs Date Time Temp Pulse Resp B/P (MAP) Pulse Ox O2 Delivery O2 Flow Rate FiO2 03/18/20 08:04 94 Nasal Cannula 1.0 03/18/20 06:00 97.8 91 19 165/74 (104) I&O- Last 24 Hours up to 6 AM 03/18/20 05:59 Intake Total 920 ml Output Total 1950 ml Balance -1030 ml EMMA SPENCER MD Mar 18, 2020 12:41
[2020-03-18 15:07] VITALS: BP 143/74
[2020-03-18 16:00] VITALS: BP 160/73
[2020-03-18] MEDS: RAMELTEON 8 MG TAB (ROZEREM) PO SCH (20:51)
[2020-03-18] MEDS: SENOKOT S TAB PO PRN (20:51)
[2020-03-18 22:00] VITALS: BP 139/73
[2020-03-19] MEDS: LEVALBUTEROL 1.25 MG/0.5 ML CONCENTRATE NEB INH SCH ×7 (00:36→23:10)
[2020-03-19 01:40] VITALS: O2SAT 94
[2020-03-19] MEDS: BENZONATATE 100 MG CAP PO SCH ×3 (05:39→22:03)
[2020-03-19 06:00] VITALS: BP 120/53
[2020-03-19 06:26] LABS: HEMATOCRIT 37.7 % (42.0-52.0); HEMOGLOBIN 11.6 g/dl (13.5-17.5); MEAN CORPUSCULAR HEMOGLOBIN 28.6 pg (27.0-33.0); MEAN CORPUSCULAR HGB CONC 30.8 g/dl (32.0-36.5); MEAN CORPUSCULAR VOLUME 93.1 fl (80.0-96.0); PLATELET COUNT, AUTOMATED 182 10^3/uL (150-450); RED BLOOD COUNT 4.05 10^6/uL (4.30-6.10); WHITE BLOOD COUNT 14.5 10^3/uL (4.0-10.0)
[2020-03-19 06:40] LABS: LYMPHOCYTES 14 % (16-44); METAMYELOCYTES 1 % (0-0); MONOCYTES 2 % (0-5); MYELOCYTES 2 % (0-0); NEUTROPHILS 81 % (28-66); PLATELET ESTIMATE NORMAL (NORMAL)
[2020-03-19 06:56] LABS: BLOOD UREA NITROGEN 23 MG/DL (7-18); CALCIUM LEVEL 8.1 MG/DL (8.8-10.2); CARBON DIOXIDE LEVEL 35 MEQ/L (21-32); CHLORIDE LEVEL 107 MEQ/L (98-107); CREATININE FOR GFR 0.87 MG/DL (0.70-1.30); GLOMERULAR FILTRATION RATE > 60.0 (>42); GLUCOSE, FASTING 87 MG/DL (70-100); POTASSIUM SERUM 4.1 MEQ/L (3.5-5.1); SODIUM LEVEL 144 MEQ/L (136-145)
[2020-03-19] MEDS: TIOTROPIUM INHALER/CAPSULE (SPIRIVA) INH SCH (07:25)
[2020-03-19] MEDS: guaiFENesin ER 600 MG TAB PO SCH ×2 (07:59→20:17)
[2020-03-19] MEDS: CETIRIZINE (ZyrTEC) 10 MG TAB PO SCH (07:59)
[2020-03-19] MEDS: MIRALAX *UNIT DOSE* 17GM PACKET PO SCH ×2 (08:00→20:17)
[2020-03-19] MEDS: PANTOPRAZOLE 40MG TAB (PROTONIX) PO SCH (08:00)
[2020-03-19] MEDS: predniSONE 20 MG TAB PO SCH (08:00)
[2020-03-19] MEDS: ENOXAPARIN 40MG/0.4ML SYRINGE (J1650 PER 10MG) SC SCH (08:01)
--- NOTE | 2020-03-19 10:28 | IPN ---
PROGRESS NOTE DATE: 03/19/2020 SUBJECTIVE: Chinmay is seen in [facility]. He is waiting for an ARU bed. He has COPD exacerbation. He gets panic attacks and therefore, there is some difficulty to differentiate shortness of breath with panic versus COPD. Quite apologetic about his treatment toward the nurses during the event last night. He is getting his prednisone tapered. Steroids are probably contributing to some of the anxiety as well. OBJECTIVE: VITAL SIGNS: Afebrile. Vital signs are stable. O2 saturation 97%. GENERAL: He is alert, conversant, and not dyspneic. HEENT: Unremarkable. LUNGS: Entirely clear. HEART: Regular rhythm. ABDOMEN: Soft and nontender. EXTREMITIES: No peripheral edema. LABORATORY DATA: White count is 14.5, hemoglobin stable at 11.6, electrolytes unremarkable. IMPRESSION: Chronic obstructive pulmonary disease (COPD). PLAN: He is getting his steroids tapered. He is on supplemental oxygen. Plan is for acute rehabilitation unit (ARU) probably on Monday.
[2020-03-19 13:47] VITALS: BP 125/81
[2020-03-19] MEDS: SENOKOT S TAB PO PRN (20:17)
[2020-03-19] MEDS: RAMELTEON 8 MG TAB (ROZEREM) PO SCH (20:17)
[2020-03-19 22:00] VITALS: BP 136/78
[2020-03-20] MEDS: LEVALBUTEROL 1.25 MG/0.5 ML CONCENTRATE NEB INH SCH ×6 (04:00→23:15)
[2020-03-20 04:08] VITALS: O2SAT 93
[2020-03-20] MEDS: BENZONATATE 100 MG CAP PO SCH ×3 (05:52→21:10)
[2020-03-20 06:00] VITALS: BP 142/66
[2020-03-20] MEDS: TIOTROPIUM INHALER/CAPSULE (SPIRIVA) INH SCH (07:15)
[2020-03-20 07:35] LABS: HEMATOCRIT 40.1 % (42.0-52.0); HEMOGLOBIN 12.5 g/dl (13.5-17.5); MEAN CORPUSCULAR HEMOGLOBIN 28.5 pg (27.0-33.0); MEAN CORPUSCULAR HGB CONC 31.2 g/dl (32.0-36.5); MEAN CORPUSCULAR VOLUME 91.6 fl (80.0-96.0); PLATELET COUNT, AUTOMATED 177 10^3/uL (150-450); RED BLOOD COUNT 4.38 10^6/uL (4.30-6.10); WHITE BLOOD COUNT 17.5 10^3/uL (4.0-10.0)
[2020-03-20 08:08] LABS: BLOOD UREA NITROGEN 25 MG/DL (7-18); CALCIUM LEVEL 8.3 MG/DL (8.8-10.2); CARBON DIOXIDE LEVEL 33 MEQ/L (21-32); CHLORIDE LEVEL 105 MEQ/L (98-107); CREATININE FOR GFR 0.94 MG/DL (0.70-1.30); GLOMERULAR FILTRATION RATE > 60.0 (>42); GLUCOSE, FASTING 95 MG/DL (70-100); POTASSIUM SERUM 3.6 MEQ/L (3.5-5.1); SODIUM LEVEL 142 MEQ/L (136-145)
[2020-03-20] MEDS: MIRALAX *UNIT DOSE* 17GM PACKET PO SCH ×2 (08:39→21:10)
[2020-03-20] MEDS: ENOXAPARIN 40MG/0.4ML SYRINGE (J1650 PER 10MG) SC SCH (08:40)
[2020-03-20] MEDS: guaiFENesin ER 600 MG TAB PO SCH ×2 (08:40→21:10)
[2020-03-20] MEDS: PANTOPRAZOLE 40MG TAB (PROTONIX) PO SCH (08:40)
[2020-03-20] MEDS: CETIRIZINE (ZyrTEC) 10 MG TAB PO SCH (08:40)
[2020-03-20] MEDS: predniSONE 20 MG TAB PO SCH (08:41)
[2020-03-20 09:16] LABS: EOSINOPHILS 1 % (0-3); LYMPHOCYTES 14 % (16-44); METAMYELOCYTES 2 % (0-0); MONOCYTES 5 % (0-5); NEUTROPHILS 78 % (28-66)
[2020-03-20 09:17] LABS: PLATELET ESTIMATE NORMAL (NORMAL)
[2020-03-20 09:19] LABS: ANISOCYTOSIS 1+
--- NOTE | 2020-03-20 09:33 | IPN ---
PROGRESS NOTE DATE: 03/20/2020 SUBJECTIVE: Chinmay is waiting for an ARU bed. No change in his clinical status from yesterday. PHYSICAL EXAMINATION: VITAL SIGNS: Afebrile. LUNGS: Entirely clear. HEART: Regular rhythm. IMPRESSION: COPD exacerbation which is stable. Plan for ARU on Monday.
[2020-03-20 14:00] VITALS: BP 113/67
[2020-03-20] MEDS: RAMELTEON 8 MG TAB (ROZEREM) PO SCH (21:10)
[2020-03-20 22:00] VITALS: BP 113/68
[2020-03-21] VITALS: O2SAT 94
[2020-03-21] MEDS: BENZONATATE 100 MG CAP PO SCH ×3 (05:21→21:05)
[2020-03-21 06:00] VITALS: BP 123/64
[2020-03-21] MEDS: LEVALBUTEROL 1.25 MG/0.5 ML CONCENTRATE NEB INH SCH ×5 (07:54→23:11)
[2020-03-21] MEDS: TIOTROPIUM INHALER/CAPSULE (SPIRIVA) INH SCH (07:54)
[2020-03-21] MEDS: guaiFENesin ER 600 MG TAB PO SCH ×2 (09:07→21:05)
[2020-03-21] MEDS: CETIRIZINE (ZyrTEC) 10 MG TAB PO SCH (09:07)
[2020-03-21] MEDS: MIRALAX *UNIT DOSE* 17GM PACKET PO SCH ×2 (09:07→21:05)
[2020-03-21] MEDS: predniSONE 20 MG TAB PO SCH (09:07)
[2020-03-21] MEDS: PANTOPRAZOLE 40MG TAB (PROTONIX) PO SCH (09:07)
[2020-03-21] MEDS: ENOXAPARIN 40MG/0.4ML SYRINGE (J1650 PER 10MG) SC SCH (09:08)
[2020-03-21 11:40] VITALS: O2SAT 94
[2020-03-21 14:00] VITALS: BP 121/64
[2020-03-21] MEDS: RAMELTEON 8 MG TAB (ROZEREM) PO SCH (21:05)
[2020-03-21 21:22] VITALS: O2SAT 94
[2020-03-21 22:00] VITALS: BP 116/71
[2020-03-22 06:00] VITALS: BP 119/82
[2020-03-22] MEDS: BENZONATATE 100 MG CAP PO SCH ×3 (06:03→22:21)
[2020-03-22] MEDS: TIOTROPIUM INHALER/CAPSULE (SPIRIVA) INH SCH (07:48)
[2020-03-22] MEDS: LEVALBUTEROL 1.25 MG/0.5 ML CONCENTRATE NEB INH SCH ×4 (07:48→17:59)
[2020-03-22] MEDS: predniSONE 20 MG TAB PO SCH (09:02)
[2020-03-22] MEDS: PANTOPRAZOLE 40MG TAB (PROTONIX) PO SCH (09:02)
[2020-03-22] MEDS: guaiFENesin ER 600 MG TAB PO SCH ×2 (09:02→20:05)
[2020-03-22] MEDS: MIRALAX *UNIT DOSE* 17GM PACKET PO SCH ×2 (09:03→20:05)
[2020-03-22] MEDS: CETIRIZINE (ZyrTEC) 10 MG TAB PO SCH (09:03)
[2020-03-22] MEDS: ENOXAPARIN 40MG/0.4ML SYRINGE (J1650 PER 10MG) SC SCH (09:03)
[2020-03-22 11:39] VITALS: O2SAT 94
[2020-03-22 14:00] VITALS: BP 125/67
[2020-03-22] MEDS: RAMELTEON 8 MG TAB (ROZEREM) PO SCH (20:05)
[2020-03-22] MEDS: SENOKOT S TAB PO PRN (20:05)
[2020-03-22 22:00] VITALS: BP 120/66
[2020-03-23] MEDS: LEVALBUTEROL 1.25 MG/0.5 ML CONCENTRATE NEB INH SCH ×7 (04:00→23:39)
[2020-03-23] MEDS: BENZONATATE 100 MG CAP PO SCH ×3 (05:25→21:06)
[2020-03-23 06:00] VITALS: BP 125/67
[2020-03-23] MEDS: TIOTROPIUM INHALER/CAPSULE (SPIRIVA) INH SCH (07:14)
[2020-03-23] MEDS: predniSONE 20 MG TAB PO SCH (08:58)
[2020-03-23] MEDS: PANTOPRAZOLE 40MG TAB (PROTONIX) PO SCH (08:58)
[2020-03-23] MEDS: ENOXAPARIN 40MG/0.4ML SYRINGE (J1650 PER 10MG) SC SCH (08:58)
[2020-03-23] MEDS: MIRALAX *UNIT DOSE* 17GM PACKET PO SCH ×2 (08:58→21:07)
[2020-03-23] MEDS: CETIRIZINE (ZyrTEC) 10 MG TAB PO SCH (08:58)
[2020-03-23] MEDS: guaiFENesin ER 600 MG TAB PO SCH ×2 (08:58→21:06)
[2020-03-23 14:00] VITALS: BP 131/77
[2020-03-23] MEDS: RAMELTEON 8 MG TAB (ROZEREM) PO SCH (21:06)
[2020-03-23 22:00] VITALS: BP 129/76
[2020-03-23 22:08] VITALS: O2SAT 95
[2020-03-24] MEDS: LEVALBUTEROL 1.25 MG/0.5 ML CONCENTRATE NEB INH SCH ×5 (04:00→19:53)
[2020-03-24] MEDS: BENZONATATE 100 MG CAP PO SCH ×3 (05:37→21:07)
[2020-03-24 06:00] VITALS: BP 116/68
[2020-03-24] MEDS: guaiFENesin ER 600 MG TAB PO SCH ×2 (08:21→21:07)
[2020-03-24] MEDS: CETIRIZINE (ZyrTEC) 10 MG TAB PO SCH (08:21)
[2020-03-24] MEDS: PANTOPRAZOLE 40MG TAB (PROTONIX) PO SCH (08:21)
[2020-03-24] MEDS: MIRALAX *UNIT DOSE* 17GM PACKET PO SCH ×2 (08:21→21:07)
[2020-03-24] MEDS: ENOXAPARIN 40MG/0.4ML SYRINGE (J1650 PER 10MG) SC SCH (08:22)
[2020-03-24] MEDS: predniSONE 20 MG TAB PO SCH (08:22)
[2020-03-24 09:00] VITALS: O2SAT 91
[2020-03-24] MEDS: TIOTROPIUM INHALER/CAPSULE (SPIRIVA) INH SCH (09:33)
--- NOTE | 2020-03-24 10:42 | IPN ---
PROGRESS NOTE DATE: 03/24/2020 SUBJECTIVE: Chinmay feels well. He is still anxious at times. I reduced his Prednisone starting this morning to try to reduce his anxiety. His lungs seemed stable. He feels like he is making progress with ambulation. PHYSICAL EXAMINATION: VITAL SIGNS: Blood pressure 116/68, pulse 73, respiratory rate 20, 95% O2 saturation. GENERAL APPEARANCE: Alert, conversant, no distress. LUNGS: A few expiratory wheezes that are ___ with the last exam. HEART: Regular rate and rhythm. ABDOMEN: Soft, nontender. EXTREMITIES: No peripheral edema. IMPRESSION AND PLAN: 1. Exacerbation of COPD. He is doing well. The lower dose of steroids starts today via nebulized bronchodilator. 2. Chronic anxiety. Hopefully this will be better on reduced dose of Prednisone. Continue his Rozerem for this. 3. Disposition: Consideration is still being given for ARU placement.
[2020-03-24 14:00] VITALS: BP 114/65
[2020-03-24] MEDS: RAMELTEON 8 MG TAB (ROZEREM) PO SCH (21:07)
[2020-03-24 21:38] VITALS: O2SAT 93
[2020-03-24 22:00] VITALS: BP 115/66
[2020-03-25] MEDS: LEVALBUTEROL 1.25 MG/0.5 ML CONCENTRATE NEB INH SCH ×7 (00:06→23:40)
[2020-03-25] MEDS: BENZONATATE 100 MG CAP PO SCH ×3 (05:38→21:13)
[2020-03-25 06:00] VITALS: BP 131/58
[2020-03-25] MEDS: predniSONE 20 MG TAB PO SCH (07:29)
[2020-03-25] MEDS: MIRALAX *UNIT DOSE* 17GM PACKET PO SCH ×2 (07:29→21:13)
[2020-03-25] MEDS: CETIRIZINE (ZyrTEC) 10 MG TAB PO SCH (07:29)
[2020-03-25] MEDS: ENOXAPARIN 40MG/0.4ML SYRINGE (J1650 PER 10MG) SC SCH (07:29)
[2020-03-25] MEDS: PANTOPRAZOLE 40MG TAB (PROTONIX) PO SCH (07:29)
[2020-03-25] MEDS: guaiFENesin ER 600 MG TAB PO SCH ×2 (07:29→21:13)
[2020-03-25 08:02] VITALS: O2SAT 96
[2020-03-25] MEDS: TIOTROPIUM INHALER/CAPSULE (SPIRIVA) INH SCH (08:02)
[2020-03-25 10:59] VITALS: O2SAT 97
--- NOTE | 2020-03-25 11:53 | IPN ---
PROGRESS NOTE DATE: 03/25/2020 SUBJECTIVE: Chinmay is seen briefly today. He is getting physical therapy. His COPD is stable. His anxiety is under good control. OBJECTIVE: VITAL SIGNS: Afebrile, stable. LUNGS: Clear. HEART: Rhythm regular. ABDOMEN: Soft and nontender. EXTREMITIES: No peripheral edema. IMPRESSION/PLAN: 1. Exacerbation of chronic obstructive pulmonary disease (COPD). He is improved. Steroids are being weaned. 2. Chronic anxiety better on reduced dose of prednisone. 3. He is not cleared for discharge yet. The plan is for discharge home on Monday. Physical therapy thinks he will need until the end of the week before he will be cleared for discharge.
[2020-03-25 14:00] VITALS: BP 111/62
[2020-03-25] MEDS: RAMELTEON 8 MG TAB (ROZEREM) PO SCH (21:13)
[2020-03-25 22:00] VITALS: BP 112/64
[2020-03-26] MEDS: LEVALBUTEROL 1.25 MG/0.5 ML CONCENTRATE NEB INH SCH ×3 (04:00→12:00)
[2020-03-26 04:08] VITALS: O2SAT 99
[2020-03-26] MEDS: BENZONATATE 100 MG CAP PO SCH ×2 (05:57→14:30)
[2020-03-26 06:00] VITALS: BP 135/67
[2020-03-26 06:28] LABS: HEMATOCRIT 42.8 % (42.0-52.0); HEMOGLOBIN 12.6 g/dl (13.5-17.5); MEAN CORPUSCULAR HEMOGLOBIN 27.3 pg (27.0-33.0); MEAN CORPUSCULAR HGB CONC 29.4 g/dl (32.0-36.5); MEAN CORPUSCULAR VOLUME 92.8 fl (80.0-96.0); PLATELET COUNT, AUTOMATED 185 10^3/uL (150-450); RED BLOOD COUNT 4.61 10^6/uL (4.30-6.10); WHITE BLOOD COUNT 18.4 10^3/uL (4.0-10.0)
[2020-03-26 06:56] LABS: BLOOD UREA NITROGEN 20 MG/DL (7-18); CALCIUM LEVEL 8.6 MG/DL (8.8-10.2); CARBON DIOXIDE LEVEL 33 MEQ/L (21-32); CHLORIDE LEVEL 107 MEQ/L (98-107); CREATININE FOR GFR 1.02 MG/DL (0.70-1.30); GLOMERULAR FILTRATION RATE > 60.0 (>42); GLUCOSE, FASTING 96 MG/DL (70-100); POTASSIUM SERUM 4.2 MEQ/L (3.5-5.1); SODIUM LEVEL 143 MEQ/L (136-145)
[2020-03-26] MEDS: TIOTROPIUM INHALER/CAPSULE (SPIRIVA) INH SCH (07:24)
[2020-03-26] MEDS ORDERED: CETI10TA PO (09:26)
[2020-03-26] MEDS ORDERED: PRED10TA2 PO (09:26)
[2020-03-26] MEDS ORDERED: PANT40TA29 PO (09:26)
[2020-03-26] MEDS: ENOXAPARIN 40MG/0.4ML SYRINGE (J1650 PER 10MG) SC SCH (10:09)
[2020-03-26] MEDS: guaiFENesin ER 600 MG TAB PO SCH (10:10)
[2020-03-26] MEDS: PANTOPRAZOLE 40MG TAB (PROTONIX) PO SCH (10:10)
[2020-03-26] MEDS: CETIRIZINE (ZyrTEC) 10 MG TAB PO SCH (10:10)
[2020-03-26] MEDS: predniSONE 20 MG TAB PO SCH (10:10)
[2020-03-26] MEDS: MIRALAX *UNIT DOSE* 17GM PACKET PO SCH (10:10)
--- NOTE | 2020-03-27 23:18 | DS.PDOC ---
Discharge Summary General Date of Admission Mar 10, 2020 at 21:18 Date of Discharge Mar 26, 2020 Attending Physician: POLA SUAREZ DO Discharge Summary PROCEDURES PERFORMED DURING STAY: None ADMITTING DIAGNOSES: 1. Acute COPD exacerbation 2. Chronic hypoxic respiratory failure requiring 2L 3. Lactic acidosis 4. Debility DISCHARGE DIAGNOSES: 1. Acute COPD exacerbation 2. Chronic hypoxic respiratory failure requiring 2L 3. Lactic acidosis 4. Debility COMPLICATIONS/CHIEF COMPLAINT: Acute Chronic Obstructive Pulmonary Disease With R. HISTORY OF PRESENT ILLNESS: Mr. Obrien is a 69 year old male with COPD chronically on 2L NC who presents with dyspnea for 3 weeks. Over the past few days, he has not been able to care for himself. He could not get up to go to the bathroom or eat. He has a chronic cough that produces clear sputum. Otherwise, he denies having lower extremity swelling, chest pain, dizziness, fever or chills. HOSPITAL COURSE: During his hospitalization, he initially required around 4L of oxygen, but was able to be weaned down with breathing treatments and steroids. He was on a short course of antibiotics. Initially had ceftriaxone and azithromycin, then 2 days of levofloxacin. Physical therapy worked with patient. Initially, he was very anxious when working with physical therapy and heart rate increased. He learned to calm down and was able to make progress with ambulation. Today, he was feeling well. Denies fever, chills, chest pain, or dyspnea. He passed physical therapy and was discharged home DISCHARGE MEDICATIONS: Please see below. ALLERGIES: Please see below. PHYSICAL EXAMINATION ON DISCHARGE: GENERAL: Comfortable, in no apparent distress HEENT: Head normocephalic, atraumatic, EOMI, sclera clear NECK: Supple CARDIOVASCULAR EXAMINATION: Regular rate and rhythm RESPIRATORY EXAMINATION: Lungs clear to auscultation bilaterally ABDOMINAL EXAMINATION: Soft, nontender, normal bowel sounds EXTREMITIES: No pitting edema bilaterally SKIN: Warm and dry NEUROLOGICAL EXAMINATION: CN 3-12 grossly intact PSYCHIATRIC EXAMINATION: Normal mood and affect LABORATORY DATA: Please see below. IMAGING: (radiologist interpretation) CTA of chest 03/10/2020 1. No evidence of pulmonary embolus. 2. Severe pulmonary emphysema. 3. Additional findings as above. PROGNOSIS: Good ACTIVITY: As tolerated. DIET: COPD diet DISCHARGE PLAN: Home with home services DISPOSITION: Home, Self-Care. DISCHARGE INSTRUCTIONS: 1. Follow up with your PCP within 5 days DISCHARGE CONDITION: Stable. Total time spent on discharge planning, discharge summary, and medication reconciliation: 40 minutes Vital Signs/I&Os Vital Signs Date Time Temp Pulse Resp B/P (MAP) Pulse Ox O2 Delivery O2 Flow Rate FiO2 03/26/20 09:00 2.0 03/26/20 06:00 98.6 79 18 135/67 (89) 97 Nasal Cannula I&O- Last 24 Hours up to 6 AM 03/27/20 06:00 Intake Total 540 ml Balance 540 ml Discharge Medications Scheduled Cetirizine HCl (Cetirizine HCl) 10 Mg Tablet, 10 MG PO DAILY Pantoprazole Sodium (Pantoprazole Sodium) 40 Mg Tablet.dr, 40 MG PO DAILY Prednisone (Prednisone) 10 Mg Tablet, 10 MG PO DAILY Take 4 pills for 3 days, then 3 pills for 3 days, then 2 pills for 3 days, then 1 pill for 3 days, then stop Salmeterol/Fluticasone (Advair 500-50 Diskus) 28 Puff/Inhaler Aerp, 1 PUFF INH BID, (Reported) Tiotropium [place] (Spiriva) 18 Mcg Cap, 18 MCG INH DAILY, (Reported) Scheduled PRN Albuterol Sulfate (Proair Hfa) 108 Mcg/Act Aer, 2 PUFF INH Q4H PRN for SHORTNESS OF BREATH, (Reported) Allergies Coded Allergies: No Known Allergies (Unverified , 03/10/20) POLA SUAREZ DO Mar 27, 2020 23:18
== END 2020-03-26 15:32 | disposition home health service (06) | DRG 191 ==
LOC: EDBD 16:48 → M ED 17:23 → M ED INP 21:18 → M MSPAV 03-11 03:22
PROVIDERS: ADMIT Internal Medicine; ATTEND Internal Medicine
DX: J44.1 Chronic obstructive pulmonary disease with (acute) exacerbation (principal); E87.2 Acidosis; J96.11 Chronic respiratory failure with hypoxia; Z79.899 Other long term (current) drug therapy; Z99.81 Dependence on supplemental oxygen; K57.30 Diverticulosis of large intestine without perforation or abscess without bleeding; K64.8 Other hemorrhoids; Z87.891 Personal history of nicotine dependence; F41.9 Anxiety disorder, unspecified

== ENCOUNTER 2020-04-07 16:11 | Inpatient (IN) | payer MEDICARE ==
[~2020-04-07] VITALS: Ht 172.7 cm; Wt 75.5 kg
[~2020-04-07 16:11] MED LIST changes: +CETI10TA PO; +PANT40TA29 PO
[2020-04-07 16:32] LABS: BASO % 0.7 % (0.0-1.0); EOS % 1.3 % (0.0-3.0); HEMATOCRIT 43.6 % (42.0-52.0); HEMOGLOBIN 13.9 g/dl (13.5-17.5); LYMPH % 9.1 % (24.0-44.0); MEAN CORPUSCULAR HEMOGLOBIN 28.8 pg (27.0-33.0); MEAN CORPUSCULAR HGB CONC 31.9 g/dl (32.0-36.5); MEAN CORPUSCULAR VOLUME 90.5 fl (80.0-96.0); NEUTROPHILS % 79.4 % (36.0-66.0); PLATELET COUNT, AUTOMATED 165 10^3/uL (150-450); RED BLOOD COUNT 4.82 10^6/uL (4.30-6.10); WHITE BLOOD COUNT 11.8 10^3/uL (4.0-10.0)
[2020-04-07 16:33] LABS: BASO # 0.1 10^3/uL (0.0-0.2); EOS # 0.2 10^3/uL (0.0-0.5); LYMPH # 1.1 10^3/uL (1.5-5.0); MONO # 0.8 10^3/uL (0.0-0.8); NEUTROPHILS # 9.4 10^3/uL (1.5-8.5)
[2020-04-07] MEDS: COMBIVENT RESPIMAT 100-20MCG INHALER 4GM INH SCH ×3 (16:35→17:21)
[2020-04-07 16:42] LABS: ABG BASE EXCESS -1.2 (-2.0-2.0); ABG HCO3 22.4 MEQ/L (22.0-26.0); ABG O2 SATURATION 99.8 % (95.0-99.0); ABG PARTIAL PRESSURE CO2 34.5 mmHg (35.0-45.0); ABG PARTIAL PRESSURE O2 399.4 mmHg (75.0-100.0); ABG STANDARD HCO3 23.5 MEQ/L (22.0-26.0); ABG TOTAL CO2 23.5 MEQ/L (23.0-31.0); ABG pH (ARTERIAL) 7.431 UNITS (7.350-7.450)
--- NOTE | 2020-04-07 16:54 | REP ---
INDICATION: DYSPNEA/COUGH. COMPARISON: Comparison chest x-ray March 13, 2020. TECHNIQUE: Portable upright AP chest radiograph. FINDINGS: The lungs are quite hyperinflated and there are extensive emphysematous changes in the upper lobes bilaterally consistent with COPD. This pattern is unchanged. No acute infiltrate is appreciated. Pleural angles are sharp. Heart is not enlarged.. No significant bony abnormality. IMPRESSION: Hyperinflation bilateral upper lobe emphysema consistent with advanced COPD. No acute infiltrate.. <Electronically signed by Alex Holland > 04/07/20 [id number]
[2020-04-07 16:56] LABS: PROTHROMBIN TIME 13.4 SECONDS (12.5-14.3)
[2020-04-07 17:06] LABS: ALT/SGPT 32 U/L (12-78); BILIRUBIN,DIRECT 0.4 MG/DL (0.0-0.2); BILIRUBIN,TOTAL 1.4 MG/DL (0.2-1.0); BLOOD UREA NITROGEN 25 MG/DL (7-18); CALCIUM LEVEL 9.1 MG/DL (8.8-10.2); CARBON DIOXIDE LEVEL 28 MEQ/L (21-32); CHLORIDE LEVEL 104 MEQ/L (98-107); CK-MB VALUE MASS 1.2 NG/ML (<3.6); CPK CREATINE PHOSPHOKINASE 14 U/L (39-308); GLOMERULAR FILTRATION RATE > 60.0 (>42); GLUCOSE, FASTING 144 MG/DL (70-100); MB/CK RELATIVE INDEX 8.57 (< OR =4); NT-PRO BNP 93 PG/ML (<125); POTASSIUM SERUM 4.3 MEQ/L (3.5-5.1); SODIUM LEVEL 138 MEQ/L (136-145); THYROID STIMULATING HORMONE 0.795 uIU/ML (0.358-3.740); THYROXINE (T4) 12.5 UG/DL (4.5-12.0); TOTAL PROTEIN 6.6 GM/DL (6.4-8.2); TROPONIN I < 0.02 NG/ML (< 0.10)
[2020-04-07] MEDS ORDERED: methylPREDNISolone 125MG 2ML VIAL IV STA (19:55)
[2020-04-07] MEDS ORDERED: ALBUTEROL 90 MCG/ACT 8GM HFA INHALER INH PRN (20:00)
[2020-04-07] MEDS ORDERED: MAALOX 30 ML SUSP *UDC PO PRN (20:00)
[2020-04-07] MEDS: IPRATROPIUM 0.5MG/ALBUTEROL 2.5MG INH SOL UD 3ML (DUONEB) NEB SCH (20:00)
--- NOTE | 2020-04-07 20:06 | HPEPDOC ---
[facility] Medical History & Physical Date of Admission Apr 07, 2020 Date of Service: Apr 07, 2020 Primary Care Physician: Jr Moore Collins Attending Physician: ANDRZEJ BOATENG MD History and Physical TIME OF SERVICE: [id number] CHIEF COMPLAINT: dyspnea HISTORY OF PRESENT ILLNESS: This 69-year-old gentleman was last admitted from Mar 10 to Mar 26 for management of acute COPD; during that admission he had a CTA of the chest that r/o PE and confirmed the presence of advanced COPD. He also had an Echo that revealed that he has grade 1 DD/HFpEF and severe Pulm HTN (PASP40). Based on the discharge summary it is unclear what the cause of the COPD exacerbation may have been, but at the time of discharge was weaned back to his baseline of 2L of O2. After he was discharged from the hospital made a home visit to follow up on the patient's course. reports feeling ok for a few days, but then things "went down hill from there." Specifically he fells very short of breath and like he doesn't have enough energy to take care of himself. He spends the majority of the day lying down and has not been eating much. He can't think of a trigger that made his dyspnea worse. He denies being exposed to smoke or fumes, denies having chest pain, denies having sinus congestion, denies having lower extremity edema or feeling like he has gained weight. His chronic dry cough has not changed. Per the patient was put on CPAP prior to arrival in the ER, but has since been weaned off to supplemental O2. REVIEW OF SYSTEMS: 12 point review of systems negative except as listed in HPI PAST MEDICAL/ SURGICAL HISTORY: Advanced COPD Chronic oxygen-dependent respiratory failure (2L) Newly diagnosed Severe Pulm HTN PASP 40 Newly diagnosed HFpEF / Grade 1 DD Diverticulosis Hemorrhoids Resection of tubular adenoma SOCIAL HISTORY: Is a former smoker He doesn't drink alcohol or use recreational drugs FAMILY HISTORY: His father of a CVA His mother of bladder cancer, diabetes. ALLERGIES: Please see below. HOME MEDICATIONS: Please see below. PHYSICAL EXAMINATION: Vital Signs Date Time Temp Pulse Resp B/P (MAP) Pulse Ox O2 Delivery O2 Flow Rate FiO2 04/07/20 16:26 101.0 119 36 141/81 100 NIPPV (BIPAP/CPAP) 04/07/20 16:34 100 GEN: well nourished / well developed/ he is lying down on his left side INTEGUMENT: he doesn't have facial plethora / he is slightly diaphoretic HEENT: NC in place CVS: RRR/ radial and dorsalis pedis pulses intact / no lower extremity edema LUNGS: he is tachypneic and has pursed lipped breathing with a prolonged expiratory phase / he is not able to speak a full sentence without having to stop and take a breath / he is using accessory muscles / he has decreased air entry bilaterally and his breath sounds are diminished ABDOMEN: soft & not tender with palpation NEURO: CN 2-12 are grossly intact / speech is not dysarthric PSYCH: alert and oriented to person place and time/ able to understand and follow all commands LABORATORY DATA: 04/07/20 16:26 04/07/20 16:25: Blood Gas Bicarbonate Standard 23.5, Arterial Blood pH 7.431, Arterial Blood Partial Pressure CO2 34.5L, Arterial Blood Partial Pressure O2 399.4H, Arterial Blood Total CO2 23.5, Arterial Blood HCO3 22.4, Arterial Blood Base Excess -1.2, Arterial Blood Oxygen Saturation 99.8H 04/07/20 16:26: Immature Granulocyte % (Auto) 2.5, Neutrophils (%) (Auto) 79.4H, Lymphocytes (%) (Auto) 9.1L, Monocytes (%) (Auto) 7.0H, Eosinophils (%) (Auto) 1.3, Basophils (%) (Auto) 0.7, Neutrophils # (Auto) 9.4H, Lymphocytes # (Auto) 1.1L, Monocytes # (Auto) 0.8, Eosinophils # (Auto) 0.2, Basophils # (Auto) 0.1, Nucleated Red Blood Cells % (auto) 0.0, Prothrombin Time 13.4, Prothromb Time International Ratio 1.00, Anion Gap 6L, Glomerular Filtration Rate > 60.0, Lactic Acid Level 2.4*H, Calcium Level 9.1, Total Bilirubin 1.4H, Direct Bilirubin 0.4H, Aspartate Amino Transf (AST/SGOT) 13, Alanine Aminotransferase (ALT/SGPT) 32, Alkaline P hosphatase 66, Total Creatine Kinase 14L, Creatine Kinase MB 1.2, Creatine Kinase MB Relative Index 8.57H, Troponin I < 0.02, XT-Aqr-S-Type Natriuretic Peptide 93, Total Protein 6.6, Albumin 3.0L, Albumin/Globulin Ratio 0.8, Thyroid Stimulating Hormone (TSH) 0.795, Thyroxine (T4) 12.5H IMAGING: Chest X-ray "IMPRESSION: Hyperinflation bilateral upper lobe emphysema consistent with advanced COPD. No acute infiltrate." MICROBIOLOGY: 04/07/20 Respiratory Virus Panel (PCR) (SOPHIA) - Final, Complete 04/07/20 Blood Culture, Received Pending EKG: tachycardia HR 122, QTC 365, WA 128 ASSESSMENT: Mr. Callejas is a 69-year-old with a history of COPD, chronic oxygen-dependent respiratory failure and severe pulmonary hypertension who presented with complaints of reoccurrence of his dyspnea a few days after being discharged from the hospital; he will be admitted for management of recurrent COPD exacerbation. PLAN: 1. Acute COPD It is possible that the acute COPD is 2/2 aspiration The chest x-ray, respiratory panel & BNP ruled out infection, heart failure or [place] as the cause of acute COPD. He received his "flu" shot last year. BAP-65 Score to predict mortality in acute COPD = Class IV risk Reason for admission: [place] chronic obstructive pulmonary disease risk score ( OCRS) guide to admission vs discharge in COPD exacerbation = .4 points = high risk Plan: admit to PCU / supplemental O2 / continuous pulse oximetry / aspiration precautions / COPD diet / f/u sputum cx / Solumedrol 125mg IV x 1 now / DuoNeb Q6H, Albuterol Q1HP, Prednisone + PPI / c/w Spiriva / will not give Levofloxacin because his cough is not more purulent and he is not on intubated / because this is his second exacerbation in a few weeks and he has advanced COPD he is likely a candidate for Roflumilast which has been shown to prevent rehospitalization and improve FEV1 and forced vital capacity, he denied having a history of depression, anxiety or insomnia which are contraindications to st arting this medication; I will ask the day time team to consult Pulmonology to confirm that the patient is a candidate in the morning / will place request for referral to Pulmonary Rehab which has been shown to reduce exacerbation & mortality if patient attends within 4 weeks of episode of acute COPD 2. Chronic O2 dependent respiratory failure He is DNR 3. SIRS He has tachycardia, tachypnea, fever & lactic acidosis Plan: Follow up blood cultures & CTA to r/o PNA 4. Lactic acidosis Likely type B lactic acidosis due to albuterol Plan: Trend lactic acid 5. Chronic HFpEF/ Pulm HTN He is euvolemic Plan: f/u Is and Os DVT PROPHYLAXIS: Lovenox DISPOSITION: home after more than 2 midnight's stay Home Medications Scheduled Salmeterol/Fluticasone (Advair 500-50 Diskus) 28 Puff/Inhaler Aerp, 1 PUFF INH BID Tiotropium [place] (Spiriva) 18 Mcg Cap, 18 MCG INH DAILY Scheduled PRN Albuterol Sulfate (Proair Hfa) 108 Mcg/Act Aer, 2 PUFF INH Q4H PRN for SHORTNESS OF BREATH Allergies Coded Allergies: No Known Allergies (Unverified , 03/10/20) A-FIB/CHADSVASC A-FIB History Current/History of A-Fib/PAF?: No Current PO Anticoag Therapy: No ANDRZEJ BOATENG MD Apr 07, 2020 20:05
[2020-04-07] MEDS ORDERED: FUROSEMIDE 40MG/4ML VIAL (J1940) IV ONE (21:30)
[2020-04-07 23:00] VITALS: BP 139/83
[2020-04-08] MEDS: IPRATROPIUM 0.5MG/ALBUTEROL 2.5MG INH SOL UD 3ML (DUONEB) NEB SCH ×4 (01:46→21:00)
[2020-04-08 04:00] VITALS: BP 139/73
[2020-04-08] MEDS: MOM 30ML SUSPENSION UDC PO PRN (05:12)
--- NOTE | 2020-04-08 05:54 | ECGEPIP ---
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
[2020-04-08 05:55] LABS: HEMATOCRIT 42.1 % (42.0-52.0); HEMOGLOBIN 13.6 g/dl (13.5-17.5); MEAN CORPUSCULAR HEMOGLOBIN 28.6 pg (27.0-33.0); MEAN CORPUSCULAR HGB CONC 32.3 g/dl (32.0-36.5); MEAN CORPUSCULAR VOLUME 88.4 fl (80.0-96.0); PLATELET COUNT, AUTOMATED 160 10^3/uL (150-450); RED BLOOD COUNT 4.76 10^6/uL (4.30-6.10); WHITE BLOOD COUNT 9.4 10^3/uL (4.0-10.0)
--- NOTE | 2020-04-08 05:59 | REPVR ---
PROCEDURE INFORMATION: Exam: CT Chest Without Contrast; Diagnostic Exam date and time: 04/07/2020 11:45 PM Age: 69 years old Clinical indication: Dyspnea; Additional info: Dyspnea, fever, tachypnea - R/O pna TECHNIQUE: Imaging protocol: Diagnostic computed tomography of the chest without contrast. 3D rendering (Not supervised by radiologist): MIP and/or 3D reconstructed images were created by the technologist. Radiation optimization: All CT scans at this facility use at least one of these dose optimization techniques: automated exposure control; mA and/or kV adjustment per patient size (includes targeted exams where dose is matched to clinical indication); or iterative reconstruction. COMPARISON: CT ANGIO CHEST 03/10/2020 6:37 PM FINDINGS: Lungs: Severe centrilobular and paraseptal emphysema. Left apical scarring. Mild bibasilar dependent atelectasis. Stable right perihilar pulmonary nodule measuring 0.8 x 0.4 cm. Calcified granuloma in the left lower lobe. Pleural space: Unremarkable. No pneumothorax. No pleural effusion. Heart: Atherosclerotic disease of the coronary arteries. Mediastinal space: Small hiatal hernia. Aorta: Atherosclerotic disease of the thoracic aorta. Lymph nodes: Unremarkable. No enlarged lymph nodes. Kidneys and ureters: Partially visualized simple left renal cyst. Bones/joints: Osteopenia. Mild multilevel degenerative disease of thoracic spine. Soft tissues: Unremarkable. IMPRESSION: Severe centrilobular and paraseptal emphysema. Right perihilar pulmonary nodules as discussed above. For patients at low risk (minimal or absent history of smoking and of other known risk factors), recommend CT Chest at 6-12 months, then consider CT Chest at 18-24 months. For patients at high risk (history of smoking or of other known risk factors), recommend CT Chest at 6-12 months, then CT Chest at 18-24 months. (Reference: Breonna) References: Breonna Terry et al. Guidelines for Management of Incidental Pulmonary Nodules Detected on CT Images: From the Fleischner Society 2017. Radiology. 2017;284(1):228-243. COMMENTS: Consistent with the [employer]'s Incidental Findings Committee white paper (J Am Andrey Radiol 2018): Any incidental renal lesion less than 1 cm or classified as too small to characterize, or any incidental cystic renal lesion characterized as simple-appearing, is likely benign. No follow-up imaging is recommended for these lesions per consensus recommendations based on imaging criteria. Electronically signed by: Kendrick Chino On 04/08/2020 05:59:15 AM
[2020-04-08 06:18] LABS: CALCIUM LEVEL 9.1 MG/DL (8.8-10.2); CREATININE FOR GFR 1.48 MG/DL (0.70-1.30); GLOMERULAR FILTRATION RATE 49.9 (>42); POTASSIUM SERUM 4.3 MEQ/L (3.5-5.1)
[2020-04-08 07:49] VITALS: BP 133/60
[2020-04-08] MEDS: PANTOPRAZOLE 40MG TAB (PROTONIX) PO SCH (09:57)
[2020-04-08] MEDS: ENOXAPARIN 40MG/0.4ML SYRINGE (J1650 PER 10MG) SC SCH (09:57)
[2020-04-08] MEDS: predniSONE 20 MG TAB PO SCH (10:47)
[2020-04-08] MEDS: TIOTROPIUM INHALER/CAPSULE (SPIRIVA) INH SCH (12:09)
[2020-04-08 14:00] VITALS: BP 139/66
--- NOTE | 2020-04-08 16:01 | IPNPDOC ---
Text Note Date of Service The patient was seen on 04/08/20. NOTE Subjective: -Feels better, however gets winded with much talking and exertion and he reports that it is his baseline -This morning he told me that when he takes high doses of steroids he has horrible encephalopathy with confusion, paranoia and feels foggy -This afternoon, I found out from PFS that he actually has an active outpatient referral to hospice Objective: GEN: NAD, sitting up in bed INTEGUMENT: no rashes, no facial flushing HEENT: NCAT, MMM, NC in place CVS: RRR, no m/r/g, no lower extremity edema LUNGS: Some pursing of lips when he speaks and pauses to catch his breath, no wheezing, no rhonchi, moving air fairly well ABDOMEN: Normoactive sounds, soft & not tender with palpation NEURO: CN 3-12 are grossly intact, speech is not dysarthric, moving all extrem ities PSYCH: alert and oriented to person place and time, able to understand and follow all commands LABORATORY DATA: reviewed IMAGING: Chest X-ray "IMPRESSION: Hyperinflation bilateral upper lobe emphysema consistent with advanced COPD. No acute infiltrate." ASSESSMENT: 69-year-old M with a history of COPD, chronic oxygen-dependent respiratory failure and severe pulmonary hypertension who presented with complaints of reoccurrence of his dyspnea a few days after being discharged from the hospital and now admitted for management of recurrent COPD exacerbation. PLAN: Acute COPD exacerbation: -The chest x-ray, respiratory panel & BNP ruled out infection, heart failure or [place] as the cause of acute COPD. -supplemental O2 for goal saturation >89% -aspiration precautions -COPD diet -f/u sputum cx -s/p Solumedrol 125mg IV in the ED/ now on day 2 of steroids on prednisone 40mg PO daily -DuoNeb Q6H -Albuterol Q4HP -daily PPI -c/w Spiriva -Pulmonary Rehab -PT/OT -This afternoon found out that he has started evaluation by hospice. Will discuss code status and hospice consult with him this afternoon 2. Chronic O2 dependent respiratory failure He is technically ordered as FULLCODE per the admission team, will discuss this with him now that we are finding out that he has a hospice evaluation that had started in the outpatient setting. 3. SIRS He has tachycardia, tachypnea, fever & lactic acidosis -Follow up blood cultures -CTA withtou PNA 4. Lactic acidosis Likely type B lactic acidosis due to albuterol -resolved 5. Chronic HFpEF/ Pulm HTN He is euvolemic -daily Is and Os DVT PROPHYLAXIS: Lovenox DISPOSITION: home after more than 2 midnight's stay VS,Fishbone, I+O VS, Fishbone, I+O Laboratory Tests 04/07/20 16:26 04/08/20 05:29 Vital Signs Date Time Temp Pulse Resp B/P (MAP) Pulse Ox O2 Delivery O2 Flow Rate FiO2 04/08/20 14:00 98.2 96 28 139/66 (90) 96 Nasal Cannula 2.0 04/07/20 16:41 100 I&O- Last 24 Hours up to 6 AM 04/08/20 06:00 Output Total 400 ml Balance -400 ml ROLANDO BARRAZA MD Apr 08, 2020 16:01
[2020-04-08 21:00] VITALS: O2SAT 93
[2020-04-08] MEDS: ACETAMINOPHEN TAB 650MG DOSE (2X325MG) PO PRN (21:34)
[2020-04-08 22:00] VITALS: BP 113/59
[2020-04-09] MEDS: IPRATROPIUM 0.5MG/ALBUTEROL 2.5MG INH SOL UD 3ML (DUONEB) NEB SCH ×4 (01:14→21:31)
[2020-04-09 02:00] VITALS: BP 111/55
[2020-04-09 06:00] VITALS: BP 110/55
[2020-04-09] MEDS: TIOTROPIUM INHALER/CAPSULE (SPIRIVA) INH SCH (07:29)
[2020-04-09 09:00] VITALS: O2SAT 92
[2020-04-09] MEDS: predniSONE 20 MG TAB PO SCH (09:00)
[2020-04-09] MEDS: PANTOPRAZOLE 40MG TAB (PROTONIX) PO SCH (09:41)
[2020-04-09] MEDS: ENOXAPARIN 40MG/0.4ML SYRINGE (J1650 PER 10MG) SC SCH (09:41)
[2020-04-09] MEDS ORDERED: MORPHINE 10MG/0.5ML ORAL CONCENTRATE SOLUTION U/D SL PRN (12:15)
--- NOTE | 2020-04-09 12:34 | IPNPDOC ---
Text Note Date of Service The patient was seen on 04/09/20. NOTE Subjective: -Feels that he is ready to meet his God. 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 Does not want to return home because he cannot care for himself adequately due to severe SOB with any exertion at all and his sister has to come to his home twice a day and she has health problems of her own. Would rather be considered for inpatient hospice at this time. -No chest pain, no palpitations, just SOB from exertion or even speaking. Objective: GEN: NAD, sitting up in bed INTEGUMENT: no rashes, no facial flushing HEENT: NCAT, MMM, NC in place CVS: RRR, no m/r/g, no lower extremity edema LUNGS: Some pursing of lips when he speaks and pauses to catch his breath, no wheezing, no rhonchi, moving air fairly well ABDOMEN: Normoactive sounds, soft & not tender with palpation NEURO: CN 3-12 are grossly intact, speech is not dysarthric, moving all extremities PSYCH: alert and oriented to person place and time, able to understand and follow all commands LABORATORY DATA: reviewed IMAGING: Chest X-ray "IMPRESSION: Hyperinflation bilateral upper lobe emphysema consistent with advanced COPD. No acute infiltrate." ASSESSMENT: 69-year-old M with a history of COPD, chronic oxygen-dependent respiratory failure and severe pulmonary hypertension who presented with complaints of reoccurrence of his dyspnea a few days after being discharged from the hospital and now admitted for management of recurrent COPD exacerbation. PLAN: Acute COPD exacerbation: -The chest x-ray, respiratory panel & BNP ruled out infection, heart failure or [place] as the cause of acute COPD. -supplemental O2 for goal saturation >89% -aspiration precautions -COPD diet -f/u sputum cx -s/p Solumedrol 125mg IV in the ED/ now on day 2 of steroids on prednisone 40mg PO daily. 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 Chronic O2 dependent respiratory failure -now [employer] B[employer]ER 3. SIRS He has tachycardia, tachypnea, fever & lactic acidosis -Follow up blood cultures -CTA without PNA 4. Lactic acidosis Likely type B lactic acidosis due to albuterol -resolved 5. Chronic HFpEF/ Pulm HTN He is euvolemic -daily Is and Os DVT PROPHYLAXIS: Lovenox DISPOSITION: pending hospice consult VS,[place], I+O VS, [place], I+O Vital Signs Date Time Temp Pulse Resp B/P (MAP) Pulse Ox O2 Delivery O2 Flow Rate FiO2 04/09/20 09:00 2.0 04/09/20 09:00 92 Nasal Cannula 04/09/20 06:00 97.1 69 18 110/55 (73) 04/07/20 16:41 100 I&O- Last 24 Hours up to 6 AM 04/09/20 06:00 Intake Total 440 ml Output Total 325 ml Balance 115 ml ROLANDO BARRAZA MD Apr 09, 2020 12:34
[2020-04-09 14:11] VITALS: BP 112/54
[2020-04-09] MEDS: ACETAMINOPHEN TAB 650MG DOSE (2X325MG) PO PRN (20:51)
[2020-04-10] MEDS: IPRATROPIUM 0.5MG/ALBUTEROL 2.5MG INH SOL UD 3ML (DUONEB) NEB SCH ×4 (02:00→18:15)
[2020-04-10] MEDS: TIOTROPIUM INHALER/CAPSULE (SPIRIVA) INH SCH (08:17)
[2020-04-10] MEDS: predniSONE 20 MG TAB PO SCH (09:00)
[2020-04-10] MEDS: ENOXAPARIN 40MG/0.4ML SYRINGE (J1650 PER 10MG) SC SCH (09:00)
[2020-04-10] MEDS: PANTOPRAZOLE 40MG TAB (PROTONIX) PO SCH (09:00)
[2020-04-10] MEDS: MORPHINE 10MG/0.5ML ORAL CONCENTRATE SOLUTION U/D SL PRN ×2 (09:52→13:57)
[2020-04-10] MEDS: MOM 30ML SUSPENSION UDC PO PRN (09:54)
--- NOTE | 2020-04-10 14:53 | IPNPDOC ---
Text Note Date of Service The patient was seen on 04/10/20. NOTE Subjective: -No chest pain, no palpitations, SOB from exertion and speaking. -Working with [facility] pending hospice paperwork Objective: GEN: NAD, sitting up in bed INTEGUMENT: no rashes, no facial flushing HEENT: NCAT, MMM, NC in place CVS: RRR, no m/r/g, no lower extremity edema LUNGS: Pursing of lips when he speaks and pauses to catch his breath, no wheezing, no rhonchi, moving air fairly well ABDOMEN: Normoactive sounds, soft & not tender with palpation NEURO: CN 3-12 are grossly intact, speech is not dysarthric, moving all extremities PSYCH: alert and oriented to person place and time, able to understand and follow all commands LABORATORY DATA: reviewed IMAGING: Chest X-ray "IMPRESSION: Hyperinflation bilateral upper lobe emphysema consistent with advanced COPD. No acute infiltrate." ASSESSMENT: 69-year-old M with a history of COPD, chronic oxygen-dependent respiratory failure and severe pulmonary hypertension who presented with complaints of reoccurrence of his dyspnea a few days after being discharged from the hospital and now admitted for management of recurrent COPD exacerbation. PLAN: Acute COPD exacerbation: -The chest x-ray, respiratory panel & BNP ruled out infection, heart failure or [place] as the cause of acute COPD. -supplemental O2 for goal saturation >89% -aspiration precautions -COPD diet -f/u sputum cx -s/p Solumedrol 125mg IV in the ED/ and had 3d of prednisone 40mg PO daily. 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 Chronic O2 dependent respiratory failure -now HOSPITAL MONITOR 3. SIRS He has tachycardia, tachypnea, fever & lactic acidosis -blood cultures were negative -CTA without PNA 4. Lactic acidosis Likely type B lactic acidosis due to albuterol -resolved 5. Chronic HFpEF/ Pulm HTN He is euvolemic -daily Is and Os DVT PROPHYLAXIS: Lovenox DISPOSITION: pending hospice consult. Will make ALC at this time. VS,Fishbone, I+O VS, Fishbone, I+O Vital Signs Date Time Temp Pulse Resp B/P (MAP) Pulse Ox O2 Delivery O2 Flow Rate FiO2 04/10/20 09:00 2.0 04/09/20 15:06 18 Room Air 04/09/20 14:11 98.3 72 112/54 (73) 97 04/07/20 16:41 100 I&O- Last 24 Hours up to 6 AM 04/10/20 06:00 Intake Total 900 ml Output Total 750 ml Balance 150 ml ROLANDO BARRAZA MD Apr 10, 2020 14:53
[2020-04-10] MEDS: LORazepam 0.5 MG TAB PO PRN (16:34)
[2020-04-11] MEDS: IPRATROPIUM 0.5MG/ALBUTEROL 2.5MG INH SOL UD 3ML (DUONEB) NEB SCH ×3 (07:17→19:33)
[2020-04-11] MEDS: TIOTROPIUM INHALER/CAPSULE (SPIRIVA) INH SCH (07:17)
[2020-04-11] MEDS: PANTOPRAZOLE 40MG TAB (PROTONIX) PO SCH (08:27)
[2020-04-11] MEDS: LORazepam 0.5 MG TAB PO PRN (20:16)
[2020-04-12] MEDS: IPRATROPIUM 0.5MG/ALBUTEROL 2.5MG INH SOL UD 3ML (DUONEB) NEB SCH ×4 (02:00→20:04)
[2020-04-12] MEDS: TIOTROPIUM INHALER/CAPSULE (SPIRIVA) INH SCH (07:56)
[2020-04-12] MEDS: PANTOPRAZOLE 40MG TAB (PROTONIX) PO SCH (08:21)
[2020-04-12] MEDS: LORazepam 0.5 MG TAB PO PRN ×2 (08:43→19:55)
[2020-04-12] MEDS: ACETAMINOPHEN TAB 650MG DOSE (2X325MG) PO PRN (19:56)
[2020-04-13] MEDS: IPRATROPIUM 0.5MG/ALBUTEROL 2.5MG INH SOL UD 3ML (DUONEB) NEB SCH ×4 (01:58→19:48)
[2020-04-13] MEDS: TIOTROPIUM INHALER/CAPSULE (SPIRIVA) INH SCH (07:19)
[2020-04-13] MEDS: PANTOPRAZOLE 40MG TAB (PROTONIX) PO SCH (08:25)
[2020-04-13] MEDS: MOM 30ML SUSPENSION UDC PO PRN (11:03)
[2020-04-13] MEDS: LORazepam 0.5 MG TAB PO PRN ×2 (11:03→19:27)
[2020-04-13] MEDS: MORPHINE 10MG/0.5ML ORAL CONCENTRATE SOLUTION U/D SL PRN ×2 (11:04→19:27)
[2020-04-14] MEDS: IPRATROPIUM 0.5MG/ALBUTEROL 2.5MG INH SOL UD 3ML (DUONEB) NEB SCH ×2 (01:03→08:46)
[2020-04-14] MEDS ORDERED: MORP20SO3 PO (08:13)
[2020-04-14] MEDS ORDERED: ATIV1TAB10 PO (08:13)
[2020-04-14] MEDS ORDERED: HYOS125TA PO (08:13)
--- NOTE | 2020-04-14 08:22 | DS.PDOC ---
Discharge Summary General Date of Admission Apr 07, 2020 at 19:55 Date of Discharge 04/14/2020 Attending Physician: ROLANDO BARRAZA MD Discharge Summary PROCEDURES PERFORMED DURING STAY: None ADMITTING DIAGNOSES: COPD exacerbation DISCHARGE DIAGNOSES: Acute on chronic advanced COPD Chronic oxygen-dependent respiratory failure (2L) Severe Pulm HTN Chronic HFpEF COMPLICATIONS/CHIEF COMPLAINT: Acute Chronic Obstructive Pulmonary Disease With R. HISTORY OF PRESENT ILLNESS: 69-year-old gentleman who was last admitted from Mar 10 to Mar 26 for management of acute COPD exacerbation; during that admission he had a CTA of the chest that r/o PE and confirmed the presence of advanced COPD. He also had an Echo that revealed that he has grade 1 DD/HFpEF and severe Pulm HTN (PASP40). Based on the discharge summary it is unclear what the cause of the COPD exacerbation may have been, but at the time of discharge he was weaned back to his baseline of 2L of O2. After he was discharged from the hospital made a home visit to follow up on the patient's course. He unfortunately was better for a few days and shortly then developed his now seemingly chronic severe shortness of breath and felt that he could not take care for himself as he lives alone and did not move much within his house and has a sister who comes by to help set up pills and food. HOSPITAL COURSE: He was covid-19 negative and CXR did not show acute PNA and he was admitted for COPD exacerbation and started on steroids. He reported that high doses of velia roids cause him to be foggy and paranoid and after much discussion he decided that his quality of life is very poor, he cannot care for himself and has no family that can devote time and resources to care for him as would be ideal at home, and that he "was ready to meet his God" and requested to be SUSTAINABILITY COORDINATOR and be discharged to inpatient hospice. DISCHARGE MEDICATIONS: Please see below. ALLERGIES: Please see below. PHYSICAL EXAMINATION ON DISCHARGE: VITAL SIGNS: Please see below. GEN: NAD, sitting up in bed INTEGUMENT: no rashes, no facial flushing HEENT: NCAT, MMM, NC in place CVS: RRR, no m/r/g, no lower extremity edema LUNGS: Pursing of lips when he speaks and pauses to catch his breath, no wheezing, no rhonchi, moving air fairly well ABDOMEN: Normoactive sounds, soft & not tender with palpation NEURO: CN 3-12 are grossly intact, speech is not dysarthric, moving all extremities PSYCH: alert and oriented to person place and time, able to understand and follow all commands LABORATORY DATA: see below IMAGING: Chest X-ray "IMPRESSION: Hyperinflation bilateral upper lobe emphysema consistent with advanced COPD. No acute infiltrate." PROGNOSIS: Poor ACTIVITY: As tolerated DIET: regular DISCHARGE PLAN: Inpatient hospice DISPOSITION: Inpatient hospice DISCHARGE INSTRUCTIONS: SUSTAINABILITY COORDINATOR ITEMS TO FOLLOWUP ON ON OUTPATIENT: Comfort measures DISCHARGE CONDITION: Stable TIME SPENT ON DISCHARGE: 35 minutes. Vital Signs/I&Os Vital Signs Date Time Temp Pulse Resp B/P (MAP) Pulse Ox O2 Delivery O2 Flow Rate FiO2 04/13/20 21:00 2.0 04/09/20 15:06 18 Room Air 04/09/20 14:11 98.3 72 112/54 (73) 97 I&O- Last 24 Hours up to 6 AM 04/14/20 06:00 Intake Total 220 ml Output Total 525 ml Balance -305 ml Laboratory Data Labs 24H Laboratory Tests 2 04/13/20 14:34: Coronavirus (COVID-19)(PCR) NEGATIVE Microbiology Microbiology 04/07/20 Blood Culture - Final, Complete NO GROWTH AFTER 5 DAYS 04/07/20 Respiratory Virus Panel (PCR) (S[facility]) - Final, Complete 04/07/20 Blood Culture - Final, Complete NO GROWTH AFTER 5 DAYS Discharge Medications Scheduled Salmeterol/Fluticasone (Advair 500-50 Diskus) 28 Puff/Inhaler Aerp, 1 PUFF INH BID, (Reported) Tiotropium Lanse (Spiriva) 18 Mcg Cap, 18 MCG INH DAILY, (Reported) Scheduled PRN Albuterol Sulfate (Proair Hfa) 108 Mcg/Act Aer, 2 PUFF INH Q4H PRN for SHORTNESS OF BREATH, (Reported) Hyoscyamine Sulfate (Hyoscyamine Sulfate) 0.125 Mg Tab.subl, 0.125 MG PO Q4HP PRN for TERMINAL SECRETIONS Use sublingually if unable to swallow Lorazepam (Ativan) 0.5 Mg Tablet, 0.5 MG PO Q4HP PRN for ANXIETY/AGITATION Use sublingually if unable to swallow Morphine Sulfate (Morphine Sulfate) 100 Mg/5 Ml Solution, 0.25-1 ML PO Q2H PRN for PAIN OR DYSPNEA Use sublingually if unable to swallow Allergies Coded Allergies: No Known Allergies (Unverified , 03/10/20) ROLANDO BARRAZA MD Apr 14, 2020 08:22
[2020-04-14] MEDS: LORazepam 0.5 MG TAB PO PRN (08:28)
[2020-04-14] MEDS: MORPHINE 10MG/0.5ML ORAL CONCENTRATE SOLUTION U/D SL PRN (08:28)
[2020-04-14] MEDS: PANTOPRAZOLE 40MG TAB (PROTONIX) PO SCH (08:28)
[2020-04-14] MEDS: TIOTROPIUM INHALER/CAPSULE (SPIRIVA) INH SCH (08:46)
== END 2020-04-14 09:06 | disposition hospice, inpatient (51) | DRG 190 ==
LOC: M ED 16:11 → M ED INP 19:55 → M PCU 22:55 → M MS5PR 04-08 13:50
PROVIDERS: ADMIT Internal Medicine; ATTEND Internal Medicine
DX: J44.1 Chronic obstructive pulmonary disease with (acute) exacerbation (principal); J96.20 Acute and chronic respiratory failure, unspecified whether with hypoxia or hypercapnia; E87.2 Acidosis; I50.32 Chronic diastolic (congestive) heart failure; R65.10 Systemic inflammatory response syndrome (SIRS) of non-infectious origin without acute organ dysfunction; I27.20 Pulmonary hypertension, unspecified; Z99.81 Dependence on supplemental oxygen; Z79.899 Other long term (current) drug therapy; K57.30 Diverticulosis of large intestine without perforation or abscess without bleeding; Z87.891 Personal history of nicotine dependence; K64.8 Other hemorrhoids